=== PATIENT | female | born 2000 | race Caucasian/White ===

== ENCOUNTER → 2020-02-07 08:10 | Outpatient (BNVA) | payer MEDICAID, SELFPAY | PROVIDERS: Family Provider Physician Assistant; PCP Physician Assistant; Visit Provider Specialist | DX: F90.9 Attention-deficit hyperactivity disorder, unspecified type (principal) | CPT/HCPCS: 99213 ==

== ENCOUNTER 2020-03-23 07:42 | Outpatient (CLI) | payer MEDICAID, SELFPAY ==
--- NOTE | 2020-03-23 08:06 | CT_ITS ---
WS: [id number] CT NECK TECHNIQUE: Contrast-enhanced CT of the neck with coronal and sagittal reformatted images. CLINICAL INFORMATION: ARTHRALGIA OF L-TMJ COMPARISON: None. DLP: 2279.[address] scans at [facility] use at least one of these dose optimization techniques: automat ed exposure control; mA and/or kV adjustment per patient size (includes targeted exams where dose is matched to clinical indication); or iterative reconstruction. FINDINGS: No evidence of mandibular fracture or dislocation. Tiny amount of sclerosis in the left condylar head slightly more prominent compared to the right and may be due to to prior trauma or repetitive microt rauma. No evidence of subchondral cystic change or avascular necrosis. No evidence of subchondral col lapse. No significant joint space narrowing. TMJ is symmetric in appearance bilaterally. Parotid glands are normal in appearance. Normal submandibular glands. Normal posterior nasopharynx. N o evidence of supraglottic or glottic mass. Thyroid gland is normal. A few slightly prominent cervica l lymph nodes left greater than right nonspecific but likely reactive. Mastoid air cells well aerated. Paranasal sinuses are well aerated. Thyroid gland is normal. Lung api derrick are well aerated. Straightening of the normal cervical lordosis. Partially visualized intracrania l contents are normal. CT/CT neck w con* [id number] IMPRESSION: 1. Temporomandibular joints are symmetric in appearance bilaterally. No eviden ce of mandibular fracture dislocation. Tiny amount of sclerosis in the left con dylar head slightly asymmetric compared to the right may be due to prior trauma or repetitive microtrauma. No subchondral cystic change or condylar flattening . 2. Salivary glands are normal in appearance. 3. A few prominent cervical lymph nodes the largest left jugulodigastric thaddeus uring 10 mm in short axis dimension, likely reactive. 4. Normal thyroid gland. 5. No evidence of supraglottic or glottic mass. 6. Normal paranasal sinuses.
[2020-03-23] MEDS: iohexol 300 mg/mL 100 mL Btl IV (08:27)
== END 2020-03-23 07:43 | disposition home or self-care (01) ==
LOC: RADWPI 07:46
PROVIDERS: Family Provider Physician Assistant; PCP Physician Assistant; Visit Provider Specialist
DX: M26.622 Arthralgia of left temporomandibular joint (principal); R59.9 Enlarged lymph nodes, unspecified
CPT/HCPCS: 70491; Q9967

== ENCOUNTER 2020-06-23 19:50 | Emergency (ER) | payer MEDICAID, SELFPAY ==
--- NOTE | 2020-06-23 19:57 | ECG_ITS ---
[facility] Test Date: 2020-06-23 Pat Name: Ella Swain Department: Room: Gender: Female Military Nurse: : 2000 Requested By: Simin Hilario Order Number: [id number] Angelic MD: Tess Graned M.D. Measurements Intervals [place] Rate: 89 P: 6 VA: 121 QRS: 59 QRSD: 78 T: 10 QT: 338 QTc: 411 Interpretive Statements SINUS RHYTHM MODERATE VOLTAGE CRITERIA FOR LVH, CONSIDER NORMAL VARIANT [MEETS CRITERIA IN ONE OF: R(aVL), S(V1), R(V5), R(V5/V6)+S(V1)] NONSPECIFIC T-WAVE ABNORMALITY INTERPRETATION BASED ON A DEFAULT AGE OF 40 YEARS No previous ECG available for comparison Electronically Signed On 06-24-2020 6:59:37 CDT by Tess Grande M.D. [email or web address]
--- NOTE | 2020-06-23 19:57 | XRR_ITS ---
PROCEDURE INFORMATION: Exam: XR Chest, 1 View Exam date and time: 06/23/2020 8:24 PM Age: 19 years old Clinical indication: Dyspnea; Additional info: Chest pain TECHNIQUE: Imaging protocol: XR of the chest Views: 1 view. COMPARISON: No relevant prior studies available. FINDINGS: Lungs: Unremarkable. No consolidation. Pleural space: Unremarkable. No pleural effusion. No pneumothorax. Heart/Mediastinum: Unremarkable. No cardiomegaly. Bones/joints: No acute abnormality. XR/XR chest 1V portable [id number] IMPRESSION: No acute findings.
[2020-06-23 19:59] VITALS: BP 142/87; PULSE 109; RESP 18; TEMP 37; O2SAT 97; BMI 27.6
--- NOTE | 2020-06-23 20:21 | ED_ITS ---
HPI - Chest Pain General: Chief Complaint: General Medical Stated Complaint: cp Time Seen by Provider: 06/23/20 19:57 Source: patient Mode of arrival: ambulatory Limitations: no limitations History of Present Illness: HPI narrative: Patient is a 19-year-old female who presents to ED today along with her mother for complaints of chest pains. Patient tells me chest pains have been intermittent over the past year. She tells me that she seems to get chest pain when she gets stressed at work. Patient states she works at the [employer]. She states she will also get chest pains that family functions because some of her family members often yell which stresses her out. Patient tells me pain will last approximately 30 minutes and then subside on its own. She reports approximately one episode of chest pain a week. She denies shortness of breath, difficulty breathing. Chest pain is not exertional or positional. MD complaint: chest pain Onset (ago): year(s) Timing of current episode: episodic Prior episodes: Yes Onset: other (with stress) Pain location: substernal Pain radiation: left arm Relieving factors: nothing Exacerbating factors: stress and other Associated symptoms: Reports no associated symptoms; Deny dyspnea, fever(s), nausea, palpitations, syncope or vomiting Treatment prior to arrival: none Review of Systems Const: Denies: fever(s) or chills Eyes: Denies: change in vision ENMT: Denies: throat pain or odynophagia Card: Reports: chest pain; Denies: palpitations, irregular heart rhythm, edema, swelling of feet/ankles, lightheadedness, syncope, pre-syncope, dyspnea on exertion, orthopnea or leg pain with exertion Resp: Denies: dyspnea, productive cough, non-productive cough, hemoptysis or chest congestion GI: Denies: nausea or vomiting Musc: Denies: neck pain or back pain Neuro: Denies: headache(s) PFSH ED PFSH: Family History Other Cancer Diabetes Heart disease Seizure Social History Smoking and tobacco status: never smoked History of recent travel: No Female Reproductive History: Date of last menstrual period: 06/12/20 Physical Exam Const: COMMON NORMALS: no acute distress, patient oriented x3, no limitations and alert GENERAL APPEARANCE: cooperative OTHER: appears to have a mild intellectual delay HENMT: COMMON NORMALS: normocephalic and atraumatic HEAD & SCALP: normocephalic and atraumatic Chest: COMMONS NORMALS: normal inspection of the chest OTHER: TTP anterior chest Resp: COMMON NORMALS: normal respiratory effort and clear to auscultation bilaterally AUSCULTATION: clear to auscultation bilaterally Cardio: COMMON NORMALS: regular rate and regular rhythm RATE: regular rate RHYTHM: regular rhythm GI: COMMON NORMALS: Normal to inspection, nondistended, normoactive bowel sounds present, Soft to palpation, non-tender, No hepatosplenomegaly present and no masses PALPATION: Yes Soft to palpation and Yes No hepatosplenomegaly present Extremity: COMMON NORMALS: normal to inspection Neuro: COMMON NORMALS: patient oriented x3 SENSORIUM/ORIENTATION: Yes alert Skin: COMMON NORMALS: no rashes or lesions noted GENERAL SKIN EXAM: no rashes or lesions noted Course Vital Signs: Vital signs: Vital Signs Temperature 98.6 F 06/23/20 19:59 Pulse Rate 109 H 06/23/20 19:59 Respiratory Rate 18 06/23/20 19:59 Blood Pressure 140/85 06/23/20 20:58 Pulse Oximetry 99 06/23/20 20:23 MDM - Chest Pain MDM Narrative: Medical decision making narrative: Based on patient's history there is no further work-up indicated from the emergency department. Her CXR and EKG are normal. Patient does have an echocardiogram on file from a year ago which was normal. Recommend she follow-up with her primary care provider. Discussed a possible referral to [facility] for therapy/counseling on meditation relaxation techniques for when patient becomes stressed. Imaging Data^: CXR: My impression: NAD EKG Data^: EKG 1: EKG interpretation date: 06/23/20 EKG interpretation time: 20:33 Interpretation: Sinus rhythm Rate [address] elevation or depression changes noted Discharge Plan Discharge Patient Disposition: Home Clinical Impression: Non-cardiac chest pain Condition: Stable Prescriptions: No Action desipramine 50 mg tablet 50 mg PO DAILY RF: 0 loratadine 10 mg capsule 10 mg PO DAILY RF: 0 montelukast 10 mg tablet 10 mg PO DAILY RF: 0 naproxen 500 mg tablet 500 mg PO BID RF: 0 omeprazole 20 mg capsule,delayed release(DR/EC) 20 mg PO DAILY RF: 0 norgestimate-ethinyl estradiol [Sprintec (28)] 0.25-35 mg-mcg tablet 1 tab PO DAILY RF: 0 Discharge Orders: Discharge Order (Routine); Ordered 06/23/20 Ordered By: Simin Hilario Referrals: Bridget Millan PA [Primary Care Provider] - Patient Instructions: Noncardiac Chest Pain (ED) Discharge Date/Time: 06/23/20 21:00 Coding Level of Care Code ED Assistant Boiler Operator for Sherice Jaramillo
[2020-06-23 20:23] VITALS: BP 145/89; O2SAT 99
[2020-06-23 20:58] VITALS: BP 140/85
== END 2020-06-23 21:00 | disposition home or self-care (01) ==
PROVIDERS: Emergency Provider Physician Assistant; PCP Physician Assistant
DX: R07.89 Other chest pain (principal)
CPT/HCPCS: 12345; 71045; 93005; 99281; 99283

== ENCOUNTER → 2020-10-26 10:28 | Outpatient (BNVA) | payer MEDICAID, SELFPAY | PROVIDERS: PCP Nurse Practitioner Family; Visit Provider Nurse Practitioner Family | DX: R05 Cough (principal) | CPT/HCPCS: 87635 ==

== ENCOUNTER 2021-03-21 12:43 | Emergency (ER) | payer MEDICAID, SELFPAY ==
[2021-03-21 12:49] VITALS: BP 154/95; PULSE 90; RESP 18; TEMP 36.8; O2SAT 95; BMI 27.4
--- NOTE | 2021-03-21 13:23 | W.ED.PSYCH ---
HPI - Psych General: Chief Complaint: Psychiatric Symptoms Stated Complaint: psych eval Time Seen by Provider: 03/21/21 12:44 History of Present Illness: HPI Narrative: The patient is a 20-year-old female with past medical history learning disability, cerebral palsy who comes to the ER from clinic where she reported that she wanted to . She also admits to days ago to cutting her left forearm. She has a superficial abrasion there not requiring any acute intervention. MD complaint: suicidal ideation Relieving factors: none Associated psychiatric symptoms: depression and suicidal ideation Associated symptoms: Reports no associated symptoms and depression If self harm: admits thoughts of self harm Review of Systems General: Reports: 10 or more systems reviewed and unremarkable except in HPI and below Const: Denies: fatigue Eyes: Denies: change in vision, blurry vision or eye redness ENMT: Denies: throat pain, swelling of lips/tongue, ear or mastoid pain or nasal congestion Card: Denies: chest pain, palpitations, irregular heart rhythm, edema, dyspnea on exertion or orthopnea Resp: Denies: dyspnea, productive cough or non-productive cough GI: Denies: abdominal pain, diarrhea or GI cramping : Denies: flank pain, difficulty voiding, urinary frequency or urinary urgency Musc: Denies: neck pain, back pain, extremity pain, joint pain, joint redness, limited range of motion or muscle weakness Skin/Breast: Denies: rash, pruritus, erythema, skin pain or skin tenderness Neuro: Denies: headache(s), numbness in extremities, weakness in extremities, sensory changes, difficulty walking, dizziness, confusion or Slurred speech present Psych: Reports: depression; Denies: anxiety Endo: Denies: polyuria All/Imm: Denies: urticaria, throat swelling or tongue swelling PFSH ED PFSH: Family History Other Cancer Diabetes Heart disease Seizure Social History Smoking and tobacco status: never smoked History of recent travel: No Female Reproductive History: Date of last menstrual period: 03/12/21 Physical Exam Const: COMMON NORMALS: no acute distress, average body habitus, patient oriented x3, no limitations, healthy appearing, alert and well nourished GENERAL APPEARANCE: cooperative, comfortable, well kempt and well developed ORIENTATION/CONSCIOUSNESS: Yes awake, Yes oriented to person, Yes oriented to place and Yes oriented to time HENMT: COMMON NORMALS: normocephalic, external ears normal and Normal external nose present HEAD & SCALP: normal to inspection and normocephalic NOSE: Normal external nose present EXTERNAL EAR: Yes external ears normal MOUTH: Normal oral and palatal mucosa present THROAT: posterior oropharynx normal Eye: COMMON NORMALS: Equal, round and reactive pupils present and EOMs intact bilaterally GENERAL EYE: appearance normal, both eyes and all related structures PUPIL: Yes Equal, round and reactive pupils present Neck/C-Spine: COMMON NORMALS: full ROM, no lymphadenopathy, no meningeal signs and no JVD GENERAL: Yes normal visual inspection Lymph: LYMPHATIC: no lymphadenopathy noted Chest: COMMONS NORMALS: normal inspection of the chest and normal palpation of entire chest wall Resp: COMMON NORMALS: normal respiratory effort, No retractions, No use of accessory muscles, clear to auscultation bilaterally and percussion normal EFFORT & INSPECTION: Yes able to speak in complete sentences AUSCULTATION: clear to auscultation bilaterally PERCUSSION: percussion normal Cardio: COMMON NORMALS: no JVD, regular rate, regular rhythm, S1 normal heart sound present, S2 normal heart sound present and Peripheral pulses 2+ throughout RATE: regular rate RHYTHM: regular rhythm HEART SOUNDS: S1 normal heart sound present and S2 normal heart sound present PERIPHERAL PULSES: Peripheral pulses 2+ throughout GI: COMMON NORMALS: Normal to inspection, nondistended, normoactive bowel sounds present, Soft to palpation, non-tender and no masses INSPECTION: Yes normal to inspection PALPATION: Yes Soft to palpation : COMMON NORMALS: Yes no CVA tenderness BLADDER/KIDNEY EXAM: Yes no CVA tenderness Back/Pelvis: COMMON NORMALS: no CVA tenderness, thoracic and lumbar spine normal to inspection, no thoracic nor lumbar tenderness and thoraco-lumbar ROM normal Extremity: COMMON NORMALS: normal to inspection, full ROM, capillary refill normal, no joint enlargement and no pedal edema GENERAL: Yes normal exam except as noted Neuro: COMMON NORMALS: patient oriented x3, CN's II-XII intact bilaterally, moves all extremities, no focal motor deficits, no sensory deficits noted and gait normal SENSORIUM/ORIENTATION: Yes alert, Yes oriented to person, Yes oriented to place and Yes oriented to time MENINGEAL SIGNS: Yes no meningeal signs Psych: COMMON NORMALS: mental status grossly normal, Normal thought process present, cooperative, normal affect and speech normal APPEARANCE: Yes well kempt ATTITUDE: Yes calm SPEECH: Yes normal speech THOUGHT PROCESS: Normal thought process present Skin: COMMON NORMALS: no rashes or lesions noted GENERAL SKIN EXAM: no rashes or lesions noted Course Vital Signs: Vital signs: Vital Signs Temperature 98.2 F 03/21/21 12:49 Pulse Rate 143 H 03/21/21 14:16 Respiratory Rate 18 03/21/21 12:49 Blood Pressure 154/95 03/21/21 12:49 Pulse Oximetry 98 03/21/21 14:16 MDM - Psych MDM Narrative: Medical decision making narrative: Seen by Dr. Goddard in the ER who recommended increasing the Lexapro and discharging home with follow-up with psych. She also has a UTI. We will discharge her with Cipro. ER with worsening symptoms. Updated her tetanus and discharge. Lab Data: Labs: Lab Results 03/21/21 03/21/21 03/21/21 Range/Units 13:26 13:26 13:26 WBC 13.1 H (4.0-10.0) 10^3/ uL RBC 4.94 (4.1-5.3) 10^6/u L Hgb 13.9 (11.5-15.3) g/dL Hct 43.1 (37.0-47.0) % MCV 87.2 (81-99) fL MCH 28.1 (28.0-34.0) pg MCHC 32.3 (30.0-36.0) g/dL RDW 12.9 (12.1-15.1) % Plt Count 413 H (130-400) 10^3/c mm MPV 9.4 (7.4-10.4) fL Neut % (Auto) 56.4 % Lymph % (Auto) 28.4 % [place] % (Auto) 8.5 % Eos % (Auto) 5.1 % Baso % (Auto) 0.8 % Neut # (Auto) 7.40 (1.8-7.7) 10^3/u L Lymph # (Auto) 3.7 (0.8-4.8) 10^3/u L [place] # (Auto) 1.1 H (0.2-0.9) 10^3/u L Eos # (Auto) 0.7 (0.0-0.8) 10^3/u L Baso # (Auto) 0.1 (0.0-0.1) 10^3/u L Nucleated RBC % (a uto) 0 % Nucleated RBCs # 0.0 /100WBC Sodium 137 (136-145) mmol/L Potassium 3.9 (3.5-5.1) mmol/L Chloride 100 (98-107) mmol/L Carbon Dioxide 25 (22-29) mmol/L Anion Gap 15.9 (5-19) BUN 6 (6-20) mg/dL Creatinine 0.5 (0.5-0.9) mg/dL GFR Calculation 154.3 H (90-130) mL/min Glucose 92 (65-115) mg/dL Calculated Osmolal ity 281 L (285-295) mOsm/k g Calcium 9.1 (8.5-10.5) mg/dL Total Bilirubin 0.3 (0.15-1.2) mg/dL AST 72 H (0-32) U/L ALT 93 H (0-33) U/L Alkaline Phosphata se 109 H (35-105) IU/L Total Protein 7.3 (6.6-8.7) g/dL Albumin 4.7 (3.5-5.2) g/dL Globulin 2.6 (1.3-4.6) g/dL TSH 2.04 (0.27-4.20) uIU/ mL Urine Color Yellow (Yellow) Urine Appearance Hazy A (CLEAR) Urine pH 5 (5-7) Ur Specific Gravit y 1.010 (1.005-1.030) Urine Protein Neg (Negative) Urine Glucose (UA) Norm (Normal) Urine Ketones Negative (Negative) Urine Blood Neg (Negative) Urine Nitrate Negative (Negative) Urine Bilirubin Neg (Negative) Urine Urobilinogen Norm (Negative) mg/dL Ur Leukocyte Mickie ase 2+ H (Negative) Urine RBC 0-4 H (0-2) /hpf Urine WBC 40-55 H (0-5) /hpf Ur Squamous Epith Cells 10-15 H (0-5) /hpf Amorphous Sediment Not Reportable Urine Bacteria 2+ H (NONE) /hpf Urine Trichomonas 2+ H /hpf Salicylates 0.7 L (3-10) mg/dL Urine Opiates Scre en (Negative) ng/mL Acetaminophen < 5.0 L (10-30) ug/mL Ur Barbiturates Sc reen (Negative) ng/mL Ur Phencyclidine S crn (Negative) ng/mL Ur Amphetamines Sc reen (Negative) ng/mL U Benzodiazepines Scrn (Negative) ng/mL Urine Cocaine Scre en (Negative) ng/mL U Marijuana (THC) Screen (Negative) ng/mL Ethyl Alcohol < 10 (0-10) mg/dL 03/21/21 Range/Units 13:26 WBC (4.0-10.0) 10^3/ uL RBC (4.1-5.3) 10^6/u L Hgb (11.5-15.3) g/dL Hct (37.0-47.0) % MCV (81-99) fL MCH (28.0-34.0) pg MCHC (30.0-36.0) g/dL RDW (12.1-15.1) % Plt Count (130-400) 10^3/c mm MPV (7.4-10.4) fL Neut % (Auto) % Lymph % (Auto) % [place] % (Auto) % Eos % (Auto) % Baso % (Auto) % Neut # (Auto) (1.8-7.7) 10^3/u L Lymph # (Auto) (0.8-4.8) 10^3/u L [place] # (Auto) (0.2-0.9) 10^3/u L Eos # (Auto) (0.0-0.8) 10^3/u L Baso # (Auto) (0.0-0.1) 10^3/u L Nucleated RBC % (a uto) % Nucleated RBCs # /100WBC Sodium (136-145) mmol/L Potassium (3.5-5.1) mmol/L Chloride (98-107) mmol/L Carbon Dioxide (22-29) mmol/L Anion Gap (5-19) BUN (6-20) mg/dL Creatinine (0.5-0.9) mg/dL GFR Calculation (90-130) mL/min Glucose (65-115) mg/dL Calculated Osmolal ity (285-295) mOsm/k g Calcium (8.5-10.5) mg/dL Total Bilirubin (0.15-1.2) mg/dL AST (0-32) U/L ALT (0-33) U/L Alkaline Phosphata se (35-105) IU/L Total Protein (6.6-8.7) g/dL Albumin (3.5-5.2) g/dL Globulin (1.3-4.6) g/dL TSH (0.27-4.20) uIU/ mL Urine Color (Yellow) Urine Appearance (CLEAR) Urine pH (5-7) Ur Specific Gravit y (1.005-1.030) Urine Protein (Negative) Urine Glucose (UA) (Normal) Urine Ketones (Negative) Urine Blood (Negative) Urine Nitrate (Negative) Urine Bilirubin (Negative) Urine Urobilinogen (Negative) mg/dL Ur Leukocyte Mickie ase (Negative) Urine RBC (0-2) /hpf Urine WBC (0-5) /hpf Ur Squamous Epith Cells (0-5) /hpf Amorphous Sediment Urine Bacteria (NONE) /hpf Urine Trichomonas /hpf Salicylates (3-10) mg/dL Urine Opiates Scre en Negative (Negative) ng/mL Acetaminophen (10-30) ug/mL Ur Barbiturates Sc reen Negative (Negative) ng/mL Ur Phencyclidine S crn Negative (Negative) ng/mL Ur Amphetamines Sc reen Negative (Negative) ng/mL U Benzodiazepines Scrn Negative (Negative) ng/mL Urine Cocaine Scre en Negative (Negative) ng/mL U Marijuana (THC) Screen Negative (Negative) ng/mL Ethyl Alcohol (0-10) mg/dL Discharge Plan Discharge Patient Disposition: Home Clinical Impression: UTI (urinary tract infection), Depression, Intellectual disability Condition: Stable Prescriptions: New Lexapro 20 mg tablet 20 mg PO DAILY Qty: 30 RF: 0 ciprofloxacin HCl 500 mg tablet 500 mg PO Q12H Qty: 10 RF: 0 Discontinued escitalopram oxalate 10 mg tablet 15 mg PO DAILY@0600 RF: 0 No Action desipramine 50 mg tablet 50 mg PO DAILY@2100 RF: 0 loratadine 10 mg capsule 10 mg PO DAILY@0600 RF: 0 montelukast 10 mg tablet 10 mg PO DAILY@0600 RF: 0 omeprazole 20 mg capsule,delayed release(DR/EC) 20 mg PO DAILY@0600 RF: 0 norgestimate-ethinyl estradiol [Sprintec (28)] 0.25-35 mg-mcg tablet 1 tab PO DAILY@0600 RF: 0 albuterol sulfate 90 mcg/actuation HFA aerosol inhaler 1 inh inhalation QID PRN (Reason: shortness of breath or wheezing) Qty: 6.7 RF: 0 Miralax 17 gram Powder In Packet 17 g PO DAILY@0600 RF: 0 ibuprofen 200 mg Tablet 200 - 400 mg PO Q6H PRN (Reason: Pain) RF: 0 dicyclomine 10 mg capsule See Rx Instructions .ROUTE .COMPLEX RF: 0 Peppermint Pills 1 tab PO DAILY@0600 RF: 0 vitamin E 1 tab PO DAILY@0600 RF: 0 Discharge Orders: Discharge ED (Routine); Ordered 03/21/21 Ordered By: Ned Treviño Referrals: Bridget Millan PA [Primary Care Provider] - Discharge Diet: Advance as tolerated Discharge Activity: Resume usual activity Patient Instructions: Urinary Tract Infection in Women (ED), Depression (ED), Opioid Safety Activity Restrictions/Additional Instructions: Your child has an intellectual disability that is likely causing some of the symptoms. Please increase the dose of Lexapro to 20 mg daily and follow-up with your primary care physician and mental health doctor before the end of next week. Return to the ER with worsening symptoms. Coding Level of Care Code ED Homebirth Midwife for Sherice Fwd Exam Comprehensive
[2021-03-21 14:05] LABS: Basophils # 0.1 10^3/uL (0.0-0.1); Basophils % 0.8 %; Eosinophils # 0.7 10^3/uL (0.0-0.8); Eosinophils % 5.1 %; Hematocrit 43.1 % (37.0-47.0); Hemoglobin 13.9 g/dL (11.5-15.3); Lymphocytes # 3.7 10^3/uL (0.8-4.8); Lymphocytes % 28.4 %; Mean Corpuscular HGB Conc 32.3 g/dL (30.0-36.0); Mean Corpuscular Hemoglobin 28.1 pg (28.0-34.0); Mean Corpuscular Volume 87.2 fL (81-99); Mean Platelet Volume 9.4 fL (7.4-10.4); Monocytes # 1.1 10^3/uL (0.2-0.9); Monocytes % 8.5 %; Neutrophils % 56.4 %; Nucleated Red Blood Cells % 0 %; Platelet Count 413 10^3/cmm (130-400); Red Blood Count 4.94 10^6/uL (4.1-5.3); Red Cell Distribution Width 12.9 % (12.1-15.1); White Blood Count 13.1 10^3/uL (4.0-10.0)
[2021-03-21 14:16] VITALS: PULSE 143; O2SAT 98
[2021-03-21 14:35] LABS: Alanine Aminotransferase 93 U/L (0-33); Albumin Level 4.7 g/dL (3.5-5.2); Alkaline Phosphatase 109 IU/L (35-105); Aspartate Amino Transferase 72 U/L (0-32); Blood Urea Nitrogen 6 mg/dL (6-20); Calcium 9.1 mg/dL (8.5-10.5); Carbon Dioxide 25 mmol/L (22-29); Chloride 100 mmol/L (98-107); Globulin 2.6 g/dL (1.3-4.6); Glomerular Filtration Rate 154.3 mL/min (90-130); Glucose 92 mg/dL (65-115); Osmolality Calculated 281 mOsm/kg (285-295); Salicylate 0.7 mg/dL (3-10); Sodium 137 mmol/L (136-145); Thyroid Stimulating Hormone 2.04 uIU/mL (0.27-4.20); Total Bilirubin 0.3 mg/dL (0.15-1.2); Total Protein 7.3 g/dL (6.6-8.7)
[2021-03-21 14:37] LABS: Acetaminophen < 5.0 ug/mL (10-30); Alcohol Level < 10 mg/dL (0-10)
[2021-03-21 14:38] LABS: Anion Gap 15.9 (5-19); Potassium 3.9 mmol/L (3.5-5.1)
[2021-03-21 14:42] LABS: Add Urine Microscopic? YES; Bilirubin Urine Neg (Negative); Blood Urine Neg (Negative); Glucose Urine UA Norm (Normal); Ketones Urine Negative (Negative); Leukocyte Esterase Urine 2+ (Negative); Nitrate Urine Negative (Negative); Protein Urine Neg (Negative); Urine Appearance Hazy (CLEAR); Urine Color Yellow (Yellow); Urobilinogen Urine Norm (Negative); pH Urine 5 (5-7)
[2021-03-21 14:53] LABS: Bacteria Urine 2+ /hpf; Trichomonas Urine 2+ /hpf
[2021-03-21 14:54] LABS: RBC Urine 0-4 /hpf (0-2); WBC Urine 40-55 /hpf (0-5)
[2021-03-21 14:55] LABS: Add Urine Culture? No
[2021-03-21 15:10] LABS: Amphetamines Screen Urine Negative (Negative); Barbiturates Screen Urine Negative (Negative); Benzodiazepines Screen Urine Negative (Negative); Cocaine Screen Urine Negative (Negative); Opiate Screen Urine Negative (Negative); PCP Screen Urine Negative (Negative); THC Screen Urine Negative (Negative)
[2021-03-21] MEDS: tetanus-dipt-pertussis 0.5 mL SDV IM (18:01)
[2021-03-21] MEDS: ciprofloxacin 500 mg Tablet PO (18:01)
--- NOTE | 2021-03-22 08:23 | DCPLANNER ---
Addendum entered by Katharine Deluna 03/22/21 08:35: Patient called home health care case manager back, and stated that home health care case manager needed to speak with her mom. manager rfid called patients mom who is her caregiver, unable to speak with her at this time, a voicemail was left for the mother to return home health care case manager phone call. Original Note: manager rfid had message to speak with patient about [facility] and primary care. manager rfid called phone number [phone], recording stated that this number is no longer in service. Case manage called phone number [phone], no answer at this number, and a recording stated that this number did not have a voicemail box set up.
== END 2021-03-21 18:07 | disposition home or self-care (01) ==
PROVIDERS: Emergency Provider Family Medicine; PCP Physician Assistant
DX: F32.9 Major depressive disorder, single episode, unspecified (principal); F79 Unspecified intellectual disabilities; N39.0 Urinary tract infection, site not specified; Z23 Encounter for immunization
CPT/HCPCS: 36415; 80053; 80306; 80307; 81001; 84443; 85025; 90471; 90715; 99284

== ENCOUNTER 2021-08-12 20:02 | Emergency (ER) | payer MEDICAID, SELFPAY ==
[2021-08-12 20:05] VITALS: BP 138/100; PULSE 102; RESP 16; TEMP 35.8; O2SAT 96; BMI 29.2
--- NOTE | 2021-08-12 20:18 | XRR_ITS ---
PROCEDURE INFORMATION: Exam: XR Chest Exam date and time: 08/12/2021 8:18 PM Age: 20 years old Clinical indication: Cough and other: Asthma attack? ; Patient HX: Cough; Asthma attack? TECHNIQUE: Imaging protocol: XR of the chest. Views: 1 view. COMPARISON: CR XR chest 1V portable [id number] 06/23/2020 8:15 PM FINDINGS: Lungs: Subtle hazy opacity in the peripheral left lung base. The lungs are otherwise clear. No consolidation. Pleural spaces: Unremarkable. No pleural effusion. No pneumothorax. Heart/Mediastinum: Unremarkable. No cardiomegaly. Bones/joints: Unremarkable. XR/XR chest 1V portable [id number] IMPRESSION: 1. Subtle hazy opacity in the left lung base could represent soft tissue attenuation, but pneumonia cannot be excluded.
--- NOTE | 2021-08-12 20:19 | ED_ITS ---
HPI - URI/Sore Throat General: Chief Complaint: Asthma Stated Complaint: Asthma Attack Time Seen by Provider: 08/12/21 20:10 Source: patient Mode of arrival: ambulatory Limitations: no limitations History of Present Illness: HPI Narrative: Patient is a 20-year-old female who presents to ED today along with her boyfriend for evaluation of multiple complaints. She states she has had a cough x 5 months. Reports it is non- productive. She is not a smoker. She has some rib pain bilaterally from coughing. She's had nasal congestion/runny nose for a few weeks now. Complains of a mild sore throat. Tested negative for COVID. Placed on abx for sinusitis- not helping. Does take an allergy med daily. Reports hx of asthma. Doing nebulizers TID. States sometimes she feels shaky. Today noticed some hot flashes. Having some complaints that her bilateral thighs hurt. No fevers, diffuse body aches, fatigue. Associated symptoms: Reports chest pain (reports rib pain) and nasal congestion; Deny abdominal pain, chills, diarrhea, epistaxis, ear or mastoid pain, fever(s), headache(s), nausea, sinus pain or vomiting Review of Systems Const: Denies: fever(s), chills, body aches, change in appetite, change in weight, fatigue, malaise, night sweats, change in sleep pattern or daytime sleepiness Eyes: Denies: change in vision, blurry vision, photophobia, eye discomfort, eye discharge, floaters or seeing flashes ENMT: Reports: throat pain, nasal discharge, nasal congestion and post nasal drip; Denies: uvular edema, enlarged tonsils, mouth pain, swelling of lips/tongue, dental pain, ear or mastoid pain, ear discharge, epistaxis or sinus pain Card: Reports: chest pain (reports rib pain); Denies: palpitations, irregular heart rhythm, edema, swelling of feet/ankles, lightheadedness, syncope, pre-syncope, dyspnea on exertion, orthopnea or leg pain with exertion Resp: Reports: non-productive cough; Denies: dyspnea, productive cough, wheezing, stridor, hemoptysis or chest congestion GI: Denies: abdominal pain, nausea, vomiting or diarrhea : Denies: flank pain or dysuria Musc: Reports: extremity pain (reports pain to bilateral thighs); Denies: neck pain, back pain, extremity swelling, joint pain, joint swelling, joint redness, joint warmth, joint stiffness, limited range of motion, muscle cramps, muscle weakness or decrease in muscle mass Skin/Breast: Denies: rash Neuro: Denies: headache(s), numbness in extremities, weakness in extremities, sensory changes, difficulty walking, dizziness or confusion PFSH ED PFSH: Family History Other Cancer Diabetes Heart disease Seizure Social History Smoking and tobacco status: never smoked History of recent travel: No Female Reproductive History: Date of last menstrual period: 03/12/21 Physical Exam Const: COMMON NORMALS: no acute distress, patient oriented x3, no limitations, alert and well nourished GENERAL APPEARANCE: cooperative NUTRITIONAL APPEARANCE: overweight ORIENTATION/CONSCIOUSNESS: Yes awake, Yes oriented to person, Yes oriented to place and Yes oriented to time OTHER: cognitive delay HENMT: COMMON NORMALS: normocephalic and atraumatic HEAD & SCALP: normocephalic and atraumatic THROAT: no uvular edema Chest: COMMONS NORMALS: normal inspection of the chest OTHER: very mild dis comfort to bilateral lateral chest canseco Resp: COMMON NORMALS: normal respiratory effort and clear to auscultation bilaterally AUSCULTATION: clear to auscultation bilaterally Cardio: COMMON NORMALS: regular rate and regular rhythm RATE: regular rate RHYTHM: regular rhythm Extremity: COMMON NORMALS: normal to inspection, full ROM, capillary refill normal, no joint enlargement, no clubbing, cyanosis or edema, no calf tenderness and no pedal edema GENERAL: Yes normal exam except as noted RIGHT LOWER EXTREMITY: Yes upper leg (normal thigh exam) LEFT LOWER EXTREMITY: Yes upper leg (normal thigh exam) Neuro: CHING COMA SCALE: document GCS findings Ching coma scale eye opening: Spontaneous [place] coma scale verbal response: Orientated Ching coma scale motor response: Obey commands [place] coma scale total score: 15 COMMON NORMALS: patient oriented x3, CN's II-XII intact bilaterally, moves all extremities, no focal motor deficits, no sensory deficits noted and gait normal SENSORIUM/ORIENTATION: Yes alert, Yes oriented to person, Yes oriented to place and Yes oriented to time Skin: COMMON NORMALS: no rashes or lesions noted GENERAL SKIN EXAM: no rashes or lesions noted TRAUMA: no lacerations or abrasions Course Vital Signs: Vital signs: Vital Signs Temperature 96.4 F L 08/12/21 20:05 Pulse Rate 98 08/12/21 20:28 Respiratory Rate 18 08/12/21 20:28 Blood Pressure 148/101 08/12/21 20:28 Pulse Oximetry 96 08/12/21 20:28 MDM - URI/Sore Throat MDM Narrative: Medical decision making narrative: Patient here for multiple medical complaints. Etiology of her chronic cough could include asthma, GERD, postnasal drip, seasonal allergies, psychogenic. Her CXR is normal. She did have a complaint of shakiness. Patient tells me she is doing her albuterol inhalers 3 times daily because her PCP told her to. I explained to her that she does not need to do scheduled treatments as this is a prn medication and only needs to if she begins experiencing shortness of breath, chest tightness, or wheezing. Recommend she continue her seasonal allergy medications. Recommend follow-up with primary care in the next 1 to 2 weeks if symptoms persist. Return to ED precautions given. Imaging Data^: CXR: My impression: NAD Discharge Plan Discharge Patient Disposition: Home Clinical Impression: Chronic cough Condition: Stable Prescriptions: No Action desipramine 50 mg tablet 50 mg PO DAILY@2100 RF: 0 loratadine 10 mg capsule 10 mg PO DAILY@0600 RF: 0 montelukast 10 mg tablet 10 mg PO DAILY@0600 RF: 0 omeprazole 20 mg capsule,delayed release(DR/EC) 20 mg PO DAILY@0600 RF: 0 medroxyprogesterone [Depo-Provera] 150 mg/mL syringe IM RF: 0 cephalexin 500 mg capsule 500 mg PO Q8H 10 Days Qty: 30 RF: 0 albuterol sulfate 90 mcg/actuation HFA aerosol inhaler 1 inh inhalation QID PRN (Reason: shortness of breath or wheezing) Qty: 6.7 RF: 0 Miralax 17 gram Powder In Packet 17 g PO DAILY@0600 RF: 0 ibuprofen 200 mg Tablet 200 - 400 mg PO Q6H PRN (Reason: Pain) RF: 0 dicyclomine 10 mg capsule See Rx Instructions .ROUTE .COMPLEX RF: 0 Peppermint Pills 1 tab PO DAILY@0600 RF: 0 vitamin E 1 tab PO DAILY@0600 RF: 0 Lexapro 20 mg tablet 20 mg PO DAILY Qty: 30 RF: 0 Discharge Orders: Discharge ED (Routine); Ordered 08/12/21 Ordered By: Simin Hilario Activity Restrictions/Additional Instructions: As we discussed please follow-up with primary care provider as needed for further evaluation. Make sure you are taking your allergy medications every day. As we discussed you do not need to do albuterol treatments 3 times daily if you are not feeling short of breath or wheezing. This could be why you feel shaky as this could be a side effect of the albuterol. Coding Level of Care Code ED Lever Miller for Sherice Jaramillo Exam Comprehensive
[2021-08-12 20:20] VITALS: O2SAT 97
[2021-08-12 20:28] VITALS: BP 148/101; PULSE 98; RESP 18; O2SAT 96
[2021-08-12 20:30] VITALS: BP 148/101; O2SAT 97
[2021-08-12 20:47] VITALS: BP 138/98; PULSE 78; RESP 18; O2SAT 98
== END 2021-08-12 20:54 | disposition home or self-care (01) ==
PROVIDERS: Emergency Provider Physician Assistant
DX: R05 Cough (principal)
CPT/HCPCS: 71045; 99283

== ENCOUNTER 2021-08-21 22:01 | Emergency (ER) | payer MEDICAID, SELFPAY ==
[2021-08-21 22:52] VITALS: BP 144/74; PULSE 83; RESP 20; TEMP 36.9; O2SAT 99; BMI 30.5
[2021-08-21 23:37] LABS: Basophils # 0.1 10^3/uL (0.0-0.1); Basophils % 0.6 %; Eosinophils # 0.3 10^3/uL (0.0-0.8); Eosinophils % 2.6 %; Hematocrit 40.9 % (37.0-47.0); Hemoglobin 13.3 g/dL (11.5-15.3); Lymphocytes # 4.4 10^3/uL (0.8-4.8); Lymphocytes % 45.2 %; Mean Corpuscular HGB Conc 32.5 g/dL (30.0-36.0); Mean Corpuscular Hemoglobin 29.4 pg (28.0-34.0); Mean Corpuscular Volume 90.5 fl (81-99); Mean Platelet Volume 9.1 fL (7.4-10.4); Monocytes # 0.9 10^3/uL (0.2-0.9); Monocytes % 9.1 %; Neutrophils # 4.05 10^3/uL (1.8-7.7); Neutrophils % 42.1 %; Nucleated Red Blood Cells % 0 %; Platelet Count 419 10^3/cmm (130-400); Red Blood Count 4.52 10^6/uL (4.1-5.3); Red Cell Distribution Width 13.3 % (12.1-15.1); White Blood Count 9.6 10^3/uL (4.0-10.0)
[2021-08-21 23:54] LABS: Alanine Aminotransferase 41 U/L (0-33); Albumin Level 4.3 g/dL (3.5-5.2); Alkaline Phosphatase 93 IU/L (35-105); Aspartate Amino Transferase 23 U/L (0-32); Blood Urea Nitrogen 12 mg/dL (6-20); Calcium 9.1 mg/dL (8.5-10.5); Carbon Dioxide 22 mmol/L (22-29); Chloride 105 mmol/L (98-107); Globulin 2.9 g/dL (1.3-4.6); Glomerular Filtration Rate 154.3 mL/min (90-130); Glucose 93 mg/dL (65-115); Lipase 31 U/L (13-60); Osmolality Calculated 285 mOsm/kg (285-295); Sodium 138 mmol/L (136-145); Total Bilirubin 0.2 mg/dL (0.15-1.2); Total Protein 7.2 g/dL (6.6-8.7)
--- NOTE | 2021-08-22 00:21 | ED_ITS ---
HPI - General Adult General: Chief complaint: Seizure Stated complaint: anxiety, headache Time Seen by Provider: 08/21/21 23:11 History of Present Illness: HPI narrative: HPI: [20]yo patient w/ hx of remote seizure presenting to the ED after concern for seizure yesterday night. This episode happened while patient was in the bed. She reported her eyes rolled backwards, and she started jerking. She could not remember what happened but denies any headache, chest pain, SOB, or palpitations around that time. Onset: 1 day ago Duration: x1 episode Location: home Severity: moderate Review of Systems Narrative: Constitutional: No fever, no chills. HEENT: No vision changes CV: No chest pain, no palpitations PULM: No productive cough, no dyspnea. GI: No abdominal pain, no N/V/D. : No Dysuria MSKEL: No muscle pain SKIN: No new rashes, no lesions. NEURO: No headache, no focal weakness. + 1 episode of shaking episode HEME: No visible bruises PSYCH: Normal mood PFSH ED PFSH: Family History Other Cancer Diabetes Heart disease Seizure Social History Smoking and tobacco status: never smoked History of recent travel: No Female Reproductive History: Date of last menstrual period: 03/12/21 Physical Exam Narrative: EXAM NARRATIVE: Head: Atraumatic Eyes: PERRL, conjunctiva without injection, eyes tracking ENT: Mucous membrane moist NECK: Supple without lymphadenopathy LUNGS: LCTAB CV: RRR ABDOMEN: Soft, nontender in all quadrants, no guarding or rebound tenderness, no CVA or flank tenderness bilaterally EXTREMITY: Normal ROM SKIN: No rash or erythema NEURO: CN II-XII tested and intact. Sensation intact to sharp/dull differentiation in all extremities. Motor: Normal tone and bulk. No abnormal movements appreciated. No pronator drift. Strength tested and 5/5 in bilateral wrist flexion/extension, elbow flexion/extension, shoulder abduction, straight leg raise, knee flexion/extension, ankle dorsiflexion/plantarflexion. Patient ambulates with a steady gait. Coordination: Finger to nose and heel to ontiveros testing intact bilaterally. Reflexes intact in the ankles, knees, and elbows bilaterally PSYCH: Cooperative mood and affect Course Vital Signs: Vital signs: Vital Signs Temperature 98.4 F 08/21/21 22:52 Pulse Rate 67 08/22/21 01:51 Respiratory Rate 17 08/22/21 01:51 Blood Pressure 138/74 08/22/21 01:51 Pulse Oximetry 100 08/22/21 01:51 MDM - General Adult MDM Narrative: Medical decision making narrative: [20]yo patient presenting with posisble new onset of seizure x 1 day ago. Currently non-focal neuro exam. HDS. Exam revealed no focal trauma/deformity/bruises.The episode of seizure was witnessed and without any trauma/injury to the head. No immunosuppression hx and without preceding fever. No history of alcohol abuse or suspicion for toxin ingestion. Hx of prior seizure likely breakthrough seizure in the setting of medication change/non-compliance. H No lips/tongue lacerations. No visible bowel/bladder incontinence Airway protected. No drooling. Sats > 95%. Unlikely to be stroke, neurogenic syncope, acute delirium, intracranial tumor/mass, intracranial bleed, SAH/subdural hematoma/epidural hematoma, meningitis, or intracranial abscess, or from alcohol withdrawal. Workup: CBC, BMP, Magnesium, EKG, CT brain (for first time seizure) ED Interventions: 1g of keppra, PO challenge, serial reassessment EKG: No e/o STEMI. No evidence of Brugada?s sign, delta wave, epsilon wave, significantly prolonged QTc, or malignant arrhythmia. Lab findings: Electrolytes including K and Mg wnl. [1:00am] On reassessment, patient back to baseline. In the ED, the patient received 1g of keppra in the ED. No other witnessed episodes of seizure while the patient was observed in the ED. Repeat neuro exam is non-focal. Patient tolerated PO in the ED and was able to ambulate without difficulties. 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 I have given patient follow up with our case work aide to be seen by our outpatient Dr. Gibson. Patient aware of a call from our case work aide to schedule for appointment(s) and verbalizes understanding of the importance of following up. Disposition: Discharge. Patient is given instruction for follow-up with PCP and Neurology in the next 24-48 hours. Given seizure precautions including no driving, swimming, or bathing until the patient is fully evaluated by specialists. Lab Data: Labs: Lab Results 08/21/21 08/21/21 08/21/21 23:32 23:32 23:32 WBC 9.6 10^3/uL 10^3/ uL (4.0-10.0) RBC 4.52 10^6/uL 10^6 /uL (4.1-5.3) Hgb 13.3 g/dL g/dL (11.5-15.3) Hct 40.9 % % (37.0-47.0) MCV 90.5 fl fl (81-99) MCH 29.4 pg pg (28.0-34.0) MCHC 32.5 g/dL g/dL (30.0-36.0) RDW 13.3 % % (12.1-15.1) Plt Count 419 10^3/cmm H 10 ^3/cmm (130-400) MPV 9.1 fL fL (7.4-10.4) Neut % (Auto) 42.1 % % Lymph % (Auto) 45.2 % % Burnett % (Auto) 9.1 % % Eos % (Auto) 2.6 % % Baso % (Auto) 0.6 % % Neut # (Auto) 4.05 10^3/uL 10^3 /uL (1.8-7.7) Lymph # (Auto) 4.4 10^3/uL 10^3/ uL (0.8-4.8) Burnett # (Auto) 0.9 10^3/uL 10^3/ uL (0.2-0.9) Eos # (Auto) 0.3 10^3/uL 10^3/ uL (0.0-0.8) Baso # (Auto) 0.1 10^3/uL 10^3/ uL (0.0-0.1) Nucleated RBC % (a uto) 0 % % Nucleated RBCs # 0.0 /100WBC /100W BC Sodium 138 mmol/L mmol/L (136-145) Potassium 4.0 mmol/L mmol/L (3.5-5.1) Chloride 105 mmol/L mmol/L (98-107) Carbon Dioxide 22 mmol/L mmol/L (22-29) Anion Gap 15.0 (5-19) BUN 12 mg/dL mg/dL (6-20) Creatinine 0.5 mg/dL mg/dL (0.5-0.9) GFR Calculation 154.3 mL/min H mL /min (90-130) Glucose 93 mg/dL mg/dL (65-115) Calculated Osmolal ity 285 mOsm/kg mOsm/ kg (285-295) Calcium 9.1 mg/dL mg/dL (8.5-10.5) Total Bilirubin 0.2 mg/dL mg/dL (0.15-1.2) AST 23 U/L U/L (0-32) ALT 41 U/L H U/L (0-33) Alkaline Phosphata se 93 IU/L IU/L (35-105) Total Protein 7.2 g/dL g/dL (6.6-8.7) Albumin 4.3 g/dL g/dL (3.5-5.2) Globulin 2.9 g/dL g/dL (1.3-4.6) Lipase 31 U/L U/L (13-60) Ser , Nate i-Qnt 0.50 mIU/mL mIU/m L Discharge Plan Discharge Patient Disposition: Home Clinical Impression: Seizure Condition: Stable Prescriptions: New Keppra 500 mg tablet 500 mg PO Q12H 14 Days Qty: 28 RF: 0 No Action desipramine 50 mg tablet 50 mg PO DAILY@2100 RF: 0 loratadine 10 mg capsule 10 mg PO DAILY@0600 RF: 0 montelukast 10 mg tablet 10 mg PO DAILY@0600 RF: 0 omeprazole 20 mg capsule,delayed release(DR/EC) 20 mg PO DAILY@0600 RF: 0 medroxyprogesterone [Depo-Provera] 150 mg/mL syringe IM RF: 0 cephalexin 500 mg capsule 500 mg PO Q8H 10 Days Qty: 30 RF: 0 albuterol sulfate 90 mcg/actuation HFA aerosol inhaler 1 inh inhalation QID PRN (Reason: shortness of breath or wheezing) Qty: 6.7 RF: 0 Miralax 17 gram Powder In Packet 17 g PO DAILY@0600 RF: 0 ibuprofen 200 mg Tablet 200 - 400 mg PO Q6H PRN (Reason: Pain) RF: 0 dicyclomine 10 mg capsule See Rx Instructions .ROUTE .COMPLEX RF: 0 Peppermint Pills 1 tab PO DAILY@0600 RF: 0 vitamin E 1 tab PO DAILY@0600 RF: 0 Lexapro 20 mg tablet 20 mg PO DAILY Qty: 30 RF: 0 Discharge Orders: Discharge ED (Routine); Ordered 08/22/21 Ordered By: Melani Mixon Discharge Diet: Advance as tolerated Discharge Activity: Resume usual activity Activity Restrictions/Additional Instructions: our evaluation, including labs and CT of your brain, were unremarkable. Please follow up with your primary care physician within two days. If you do not have a primary doctor, you can call your insurance company to find one. If you do not have insurance, you can look for one on this of local clinics or go to the finance/registration department for more assistance. Our case work aide will have you follow-up with Dr. Gibson in the next few days. You would be expected to have a phone call with our case work aide who will put you on the schedule. Return to the Emergency Department if you experience recurrent seizures, difficulty walking or moving your arms or legs, slurred speech, difficulty with normal activities, abnormal behavior, vision changes, or for any other concerning symptoms. Coding Level of Care Code ED Pantry Chef for Sherice Jaramillo
[2021-08-22] MEDS: levETIRAcetam 500 mg Tablet 1000 MG PO (00:32)
--- NOTE | 2021-08-22 01:09 | CTR_ITS ---
PROCEDURE INFORMATION: Exam: CT Head Without Contrast Exam date and time: 08/22/2021 1:09 AM Age: 20 years old Clinical indication: Patient HX: Seizure last night with residual headache. ; Additional info: First time seizure TECHNIQUE: Imaging protocol: Computed tomography of the head without contrast. Radiation optimization: All CT scans at this facility use at least one of these dose optimization techniques: automated exposure control; mA and/or kV adjustment per patient size (includes targeted exams where dose is matched to clinical indication); or iterative reconstruction. COMPARISON: No relevant prior studies available. RADIATION DOSE METRICS: Total DLP (mGy-cm): 858.81 FINDINGS: Brain: No acute intracranial hemorrhage or mass effect. No definite acute infarct by CT. MRI could be more sensitive/specific for detection, as clinically directed. Cerebral ventricles: Ventricle size is normal for age. Paranasal sinuses: Included paranasal sinuses are essentially clear. Mastoid air cells: No significant acute finding. Bones/joints: No definite acute skull fracture. CT/CT head wo con* [id number] IMPRESSION: 1. No acute intracranial hemorrhage or mass effect. 2. No definite acute infarct by CT, see above. 3. Other findings discussed above. Radiation Dose CTDIVOL = (mGy): DLP = 858.81 (mGy-cm)
[2021-08-22 01:51] VITALS: BP 138/74; PULSE 67; RESP 17; O2SAT 100
--- NOTE | 2021-08-22 08:22 | DCPLANNER ---
spa assistant manager had message to schedule a follow up appointment for patient with Dr. Maria office. spa assistant manager emailed patients information to the neurology clinic. Patients information will be printed and reviewed. Clinic will call patient with appointment information.
--- NOTE | 2021-08-24 14:59 | DCPLANNER ---
software design manager was contacted by Dr. Maria office, was told that clinic tried to reach patient, but was unable to speak with patient or leave a voicemail for patient.
== END 2021-08-22 01:51 | disposition home or self-care (01) ==
PROVIDERS: Emergency Provider Emergency Medicine
DX: R56.9 Unspecified convulsions (principal)
CPT/HCPCS: 70450; 80053; 83690; 84702; 85025; 99283

== ENCOUNTER 2021-08-30 16:49 | Emergency (ER) | payer MEDICAID, SELFPAY ==
[2021-08-30 16:51] VITALS: BP 146/99; PULSE 87; RESP 18; TEMP 37; O2SAT 96
--- NOTE | 2021-08-30 17:06 | ED_ITS ---
HPI - General Adult General: Chief complaint: Psychiatric Symptoms Stated complaint: SI Time Seen by Provider: 08/30/21 17:03 History of Present Illness: HPI narrative: HPI: [20]yo patient w/ hx of depression BIBA for depression. for On arrival, the patient is AAOx3 and cooperative with my evaluation. No focal complaints of chest pain, shortness of breath, palpitations, N/V, focal GI/ complaints.Reports feeling sad because of family situation. Reports passive suicidal ideation, denies active SI. No VH/AH. Onset: chronic Duration: ongoing Location: home Severity: moderate Review of Systems Narrative: Constitutional: No fever, no chills. HEENT: No vision changes CV: No chest pain, no palpitations PULM: No productive cough, no dyspnea. GI: No abdominal pain, no N/V/D. : No dysuria MSKEL: No muscle pain SKIN: No new rashes, no lesions. NEURO: No headache, no focal weakness. HEME: No visible bruises PSYCH: Normal mood PFSH ED PFSH: Family History Other Cancer Diabetes Heart disease Seizure Social History Smoking and tobacco status: never smoked History of recent travel: No Female Reproductive History: Date of last menstrual period: 03/12/21 Physical Exam Narrative: EXAM NARRATIVE: Head: Atraumatic Eyes: PERRL, conjunctiva without injection, eyes tracking ENT: Mucous membrane moist NECK: Supple without lymphadenopathy LUNGS: LCTAB CV: RRR ABDOMEN: Soft, nontender EXTREMITY: Normal ROM SKIN: No rash or erythema NEURO: Awake and alert. No focal weakness PSYCH: Cooperative mood and affect. Course Vital Signs: Vital signs: Vital Signs Temperature 98.6 F 08/30/21 16:51 Pulse Rate 89 08/30/21 23:04 Respiratory Rate 16 08/30/21 23:04 Blood Pressure 122/78 08/30/21 23:04 Pulse Oximetry 99 08/30/21 23:04 MDM - General Adult MDM Narrative: Medical decision making narrative: [20]yo patient w/ hx of anxiety/depression presenting for acute depression and passive suicidal ideation. HDS, exam within normal limit Thoughts are linear and organized, and the patient has no AH/VH, or HI. Clinically the patient displays no overt toxidrome; they are well appearing, with low suspicion for toxic ingestion given history and exam. Symptoms unlikely 2/2 anemia, hypothyroidism, infection, or ICH. Workup: CBC, CMP, Lipase, salicylate/tylenol, UDS Lab findings: wnl [10:52] On reassessment, labs and workup wnl. Patient is hemodynamically stable with no acute medical complaints. Case discussed with psychiatric provider Dr. Goddard at [facility] psych inpatient who evaluated patient via telepsych and recommended discharge with close follow-up. Disposition: Discharge Lab Data: Labs: Lab Results 08/30/21 08/30/21 08/30/21 17:15 17:15 17:15 WBC 11.4 10^3/uL H 10 ^3/uL (4.0-10.0) RBC 4.71 10^6/uL 10^6 /uL (4.1-5.3) Hgb 13.7 g/dL g/dL (11.5-15.3) Hct 41.1 % % (37.0-47.0) MCV 87.3 fl fl (81-99) MCH 29.1 pg pg (28.0-34.0) MCHC 33.3 g/dL g/dL (30.0-36.0) RDW 12.9 % % (12.1-15.1) Plt Count 367 10^3/cmm 10^3 /cmm (130-400) MPV 9.4 fL fL (7.4-10.4) Neut % (Auto) 59.6 % % Lymph % (Auto) 28.3 % % Bartholomew % (Auto) 8.8 % % Eos % (Auto) 2.2 % % Baso % (Auto) 0.7 % % Neut # (Auto) 6.78 10^3/uL 10^3 /uL (1.8-7.7) Lymph # (Auto) 3.2 10^3/uL 10^3/ uL (0.8-4.8) Bartholomew # (Auto) 1.0 10^3/uL H 10^ 3/uL (0.2-0.9) Eos # (Auto) 0.3 10^3/uL 10^3/ uL (0.0-0.8) Baso # (Auto) 0.1 10^3/uL 10^3/ uL (0.0-0.1) Nucleated RBC % (a uto) 0 % % Nucleated RBCs # 0.0 /100WBC /100W BC Sodium 138 mmol/L mmol/L (136-145) Potassium 4.2 mmol/L mmol/L (3.5-5.1) Chloride 103 mmol/L mmol/L (98-107) Carbon Dioxide 21 mmol/L L mmol/ L (22-29) Anion Gap 18.2 (5-19) BUN 10 mg/dL mg/dL (6-20) Creatinine 0.6 mg/dL mg/dL (0.5-0.9) GFR Calculation 125.0 mL/min mL/m in (90-130) Glucose 87 mg/dL mg/dL (65-115) Calculated Osmolal ity 284 mOsm/kg L mOs m/kg (285-295) Calcium 9.6 mg/dL mg/dL (8.5-10.5) Total Bilirubin 0.2 mg/dL mg/dL (0.15-1.2) AST 23 U/L U/L (0-32) ALT 39 U/L H U/L (0-33) Alkaline Phosphata se 99 IU/L IU/L (35-105) Total Protein 7.4 g/dL g/dL (6.6-8.7) Albumin 4.5 g/dL g/dL (3.5-5.2) Globulin 2.9 g/dL g/dL (1.3-4.6) Lipase 27 U/L U/L (13-60) Ser , Nate i-Qnt 0.50 mIU/mL mIU/m L Urine Color Urine Appearance Urine pH Ur Specific Gravit y Urine Protein Urine Glucose (UA) Urine Ketones Urine Blood Urine Nitrate Urine Bilirubin Urine Urobilinogen Ur Leukocyte Mickie ase Salicylates < 0.3 mg/dL L mg/ dL (3-10) Urine Opiates Scre en Negative ng/mL ng /mL (Negative) Acetaminophen < 5.0 ug/mL L ug/ mL (10-30) Ur Barbiturates Sc reen Negative ng/mL ng /mL (Negative) Ur Phencyclidine S crn Negative ng/mL ng /mL (Negative) Ur Amphetamines Sc reen Negative ng/mL ng /mL (Negative) U Benzodiazepines Scrn Negative ng/mL ng /mL (Negative) Urine Cocaine Scre en Negative ng/mL ng /mL (Negative) U Marijuana (THC) Screen Negative ng/mL ng /mL (Negative) 08/30/21 17:15 WBC RBC Hgb Hct MCV MCH MCHC RDW Plt Count MPV Neut % (Auto) Lymph % (Auto) Bartholomew % (Auto) Eos % (Auto) Baso % (Auto) Neut # (Auto) Lymph # (Auto) Bartholomew # (Auto) Eos # (Auto) Baso # (Auto) Nucleated RBC % (a uto) Nucleated RBCs # Sodium Potassium Chloride Carbon Dioxide Anion Gap BUN Creatinine GFR Calculation Glucose Calculated Osmolal ity Calcium Total Bilirubin AST ALT Alkaline Phosphata se Total Protein Albumin Globulin Lipase Ser , Nate i-Qnt Urine Color Straw (Yellow) Urine Appearance Clear (CLEAR) Urine pH 7 (5-7) Ur Specific Gravit y 1.010 (1.005-1.030) Urine Protein Neg (Negative) Urine Glucose (UA) Norm (Normal) Urine Ketones Negative (Negative) Urine Blood Neg (Negative) Urine Nitrate Negative (Negative) Urine Bilirubin Neg (Negative) Urine Urobilinogen Norm mg/dL mg/dL (Negative) Ur Leukocyte Mickie ase Negative (Negative) Salicylates Urine Opiates Scre en Acetaminophen Ur Barbiturates Sc reen Ur Phencyclidine S crn Ur Amphetamines Sc reen U Benzodiazepines Scrn Urine Cocaine Scre en U Marijuana (THC) Screen Discharge Plan Discharge Patient Disposition: Home Clinical Impression: Depression, Anxiety Condition: Stable Prescriptions: No Action desipramine 50 mg tablet 50 mg PO DAILY@2100 RF: 0 loratadine 10 mg capsule 10 mg PO DAILY@0600 RF: 0 montelukast 10 mg tablet 10 mg PO DAILY@0600 RF: 0 omeprazole 20 mg capsule,delayed release(DR/EC) 20 mg PO DAILY@0600 RF: 0 medroxyprogesterone [Depo-Provera] 150 mg/mL syringe IM RF: 0 cephalexin 500 mg capsule 500 mg PO Q8H 10 Days Qty: 30 RF: 0 albuterol sulfate 90 mcg/actuation HFA aerosol inhaler 1 inh inhalation QID PRN (Reason: shortness of breath or wheezing) Qty: 6.7 RF: 0 Miralax 17 gram Powder In Packet 17 g PO DAILY@0600 RF: 0 ibuprofen 200 mg Tablet 200 - 400 mg PO Q6H PRN (Reason: Pain) RF: 0 dicyclomine 10 mg capsule See Rx Instructions .ROUTE .COMPLEX RF: 0 Peppermint Pills 1 tab PO DAILY@0600 RF: 0 vitamin E 1 tab PO DAILY@0600 RF: 0 Lexapro 20 mg tablet 20 mg PO DAILY Qty: 30 RF: 0 Keppra 500 mg tablet 500 mg PO Q12H 14 Days Qty: 28 RF: 0 Discharge Orders: Discharge ED (Routine); Ordered 08/30/21 Ordered By: Melani Mixon Discharge Diet: Advance as tolerated Discharge Activity: Resume usual activity Patient Instructions: Depression (ED), Anxiety (ED) Activity Restrictions/Additional Instructions: Please come back to the emergency room if you need help, have any hallucinations, or you have any depression or have thoughts about hurting yourself or other people. Coding Level of Care Code ED Sexual Assault Counselor for Sherice Jaramillo
[2021-08-30 17:24] LABS: Basophils # 0.1 10^3/uL (0.0-0.1); Basophils % 0.7 %; Eosinophils # 0.3 10^3/uL (0.0-0.8); Eosinophils % 2.2 %; Hematocrit 41.1 % (37.0-47.0); Hemoglobin 13.7 g/dL (11.5-15.3); Lymphocytes # 3.2 10^3/uL (0.8-4.8); Lymphocytes % 28.3 %; Mean Corpuscular HGB Conc 33.3 g/dL (30.0-36.0); Mean Corpuscular Hemoglobin 29.1 pg (28.0-34.0); Mean Corpuscular Volume 87.3 fl (81-99); Mean Platelet Volume 9.4 fL (7.4-10.4); Monocytes % 8.8 %; Neutrophils # 6.78 10^3/uL (1.8-7.7); Neutrophils % 59.6 %; Nucleated Red Blood Cells % 0 %; Platelet Count 367 10^3/cmm (130-400); Red Blood Count 4.71 10^6/uL (4.1-5.3); Red Cell Distribution Width 12.9 % (12.1-15.1); White Blood Count 11.4 10^3/uL (4.0-10.0)
[2021-08-30 17:34] LABS: Add Urine Microscopic? NO; Charge for UA Resulting for Rev
[2021-08-30 17:38] LABS: Bilirubin Urine Neg (Negative); Blood Urine Neg (Negative); Glucose Urine UA Norm (Normal); Ketones Urine Negative (Negative); Leukocyte Esterase Urine Negative (Negative); Nitrate Urine Negative (Negative); Protein Urine Neg (Negative); Urine Appearance Clear (CLEAR); Urine Color Straw (Yellow); Urobilinogen Urine Norm (Negative); pH Urine 7 (5-7)
[2021-08-30 17:47] LABS: Amphetamines Screen Urine Negative (Negative); Barbiturates Screen Urine Negative (Negative); Benzodiazepines Screen Urine Negative (Negative); Cocaine Screen Urine Negative (Negative); Opiate Screen Urine Negative (Negative); PCP Screen Urine Negative (Negative); THC Screen Urine Negative (Negative)
[2021-08-30 18:11] LABS: Acetaminophen < 5.0 ug/mL (10-30); Alanine Aminotransferase 39 U/L (0-33); Albumin Level 4.5 g/dL (3.5-5.2); Alkaline Phosphatase 99 IU/L (35-105); Anion Gap 18.2 (5-19); Aspartate Amino Transferase 23 U/L (0-32); Blood Urea Nitrogen 10 mg/dL (6-20); Calcium 9.6 mg/dL (8.5-10.5); Carbon Dioxide 21 mmol/L (22-29); Chloride 103 mmol/L (98-107); Creatinine Clr Calc Pharmacy 149.9197; Globulin 2.9 g/dL (1.3-4.6); Glucose 87 mg/dL (65-115); Lipase 27 U/L (13-60); Osmolality Calculated 284 mOsm/kg (285-295); Potassium 4.2 mmol/L (3.5-5.1); Salicylate < 0.3 mg/dL (3-10); Sodium 138 mmol/L (136-145); Total Bilirubin 0.2 mg/dL (0.15-1.2); Total Protein 7.4 g/dL (6.6-8.7)
[2021-08-30 23:04] VITALS: BP 122/78; PULSE 89; RESP 16; O2SAT 99
== END 2021-08-30 23:05 | disposition home or self-care (01) ==
PROVIDERS: Emergency Provider Emergency Medicine
DX: F41.8 Other specified anxiety disorders (principal)
CPT/HCPCS: 80053; 80306; 80307; 81003; 83690; 84702; 85025; 99284

== ENCOUNTER 2021-09-17 14:07 | Outpatient (CLI) | payer MEDICAID, SELFPAY ==
--- NOTE | 2021-09-17 14:30 | MR_ITS ---
WS: [id number] MRI LEFT KNEE NONCONTRAST TECHNIQUE: Axial PD, coronal PD fat sat, coronal PD, sagittal PD, and sagittal PD fat-sat images obta ined. CLINICAL INFORMATION: LEFT LATERAL KNEE PAIN COMPARISON: None. FINDINGS: Distal quadriceps and patella tendons are intact. Normal ACL and PCL. Medial and lateral meniscus are normal in appearance. Small amount of prepatellar soft tissue edema. Medial and lateral patellar ret inaculum are normal. Normal popliteal fossa. Normal medial and lateral collateral ligaments. Subchondral injury with associated edema involving the posterior lateral femoral condyle consistent w ith recent injury and osteochondral fracture/contusion. No significant depression. Normal tibial plat eau. MR/MR knee LT wo con* [id number] IMPRESSION: 1. Normal ACL and PCL. 2. Acute subchondral injury involving the posterior lateral femoral condyle me asuring 8.4 x 5.7 mm AP by transverse with associated edema. No significant dep ression. 3. Normal medial and lateral meniscus. 4. Medial and lateral collateral ligaments are intact. Outbridge grading: grade I: focal areas of hyperintensity with normal contour
== END 2021-09-17 14:08 | disposition home or self-care (01) ==
PROVIDERS: Visit Provider Physician Assistant
DX: M25.562 Pain in left knee (principal); S89.82XA Other specified injuries of left lower leg, initial encounter; X58.XXXA Exposure to other specified factors, initial encounter
CPT/HCPCS: 73721

== ENCOUNTER → 2021-09-19 08:08 | Outpatient (BNVA) | payer MEDICAID, SELFPAY | PROVIDERS: Visit Provider Specialist | DX: M25.562 Pain in left knee (principal); M25.561 Pain in right knee | CPT/HCPCS: 73560; 73565 ==

== ENCOUNTER → 2021-11-26 10:18 | Outpatient (BNVA) | payer MEDICAID, SELFPAY | PROVIDERS: Visit Provider Registered Nurse | DX: R05.9 Cough, unspecified (principal); Z20.828 Contact with and (suspected) exposure to other viral communicable diseases | CPT/HCPCS: 87400; 87635 ==

== ENCOUNTER 2022-02-14 08:03 | Outpatient (CLI) | payer MEDICAID, SELFPAY ==
--- NOTE | 2022-02-14 08:20 | NM_ITS ---
WS: [id number] NUCLEAR MEDICINE HIDA SCAN CLINICAL INFORMATION: RUQ PAIN TECHNIQUE: Following intravenous administration of 7.6 mCi of technetium 99m mebrofenin, images of th e abdomen were obtained over the course of 60 minutes. Next, gallbladder ejection fraction was determ ined by obtaining preprandial and one-hour postprandial images of the gallbladder following oral tiera stion of Ensure. COMPARISON: December 11, 2021 FINDINGS: Hepatomegaly. Normal hepatic uptake and normal hepatic excretion. Gallbladder is visualized by 50 min utes. Normal small bowel and common bile duct activity. Normal gallbladder ejection fraction 78% within normal limits. NM/NM hepatobiliary w phar* [id number] IMPRESSION: 1. No evidence of acute or chronic cholecystitis. 2. Normal gallbladder ejection fraction 78% within normal limits. 3. Mild hepatomegaly.
== END 2022-02-14 08:04 | disposition home or self-care (01) ==
LOC: RAD 08:04
PROVIDERS: PCP Registered Nurse; Visit Provider Physician Assistant
DX: R10.11 Right upper quadrant pain (principal); R16.0 Hepatomegaly, not elsewhere classified
CPT/HCPCS: 78227; A9537

== ENCOUNTER 2022-03-26 16:25 | Inpatient (IN) | payer MEDICAID, SELFPAY ==
--- NOTE | 2022-03-26 17:01 | W.ED.PSYCHS ---
HPI - Psych General: Chief Complaint: Psychiatric Symptoms Stated Complaint: MHE Time Seen by Provider: 03/26/22 17:00 History of Present Illness: Mr. Swain is a 21-year-old lady with history of ADHD and learning disability with autistic features who presents to the emergency department due to depression with suicidal ideation. She was previously on medications though reports that they did not significantly help and has not been on them for some time. Over the past few weeks she has felt more depressed with thoughts of suicide and being better off . She reported to nursing staff that there were some social stressors however denies this/does not endorse this specifically to me. She denies specific actions or a specific plan. Course of symptoms has been worsening. Intensity is moderate to severe. She has associated poor sleep and appetite changes and increased anxiety. Onset (ago): week(s) History of same: Yes Associated psychiatric symptoms: depression and suicidal ideation Review of Systems General: Reports: 10 or more systems reviewed and unremarkable except in HPI and below PFSH ED PFSH: Medical History (Updated 03/27/22 @ 15:13 by Alex Goddard MD) Asperger's syndrome Attention-deficit hyperactivity disorder, combined type Psychiatric care Family History Other Cancer Diabetes Heart disease Seizure Social History History of recent travel: No Female Reproductive History: Date of last menstrual period: 03/12/21 Physical Exam Const: COMMON NORMALS: alert GENERAL APPEARANCE: cooperative and well developed HENMT: COMMON NORMALS: normocephalic and atraumatic HEAD & SCALP: normocephalic and atraumatic Eye: COMMON NORMALS: conjunctivae normal CONJUNCTIVA: Yes conjunctivae normal SCLERA: sclerae normal Neck/C-Spine: COMMON NORMALS: supple GENERAL: Yes trachea midline Resp: COMMON NORMALS: normal respiratory effort EFFORT & INSPECTION: Yes able to speak in complete sentences Cardio: COMMON NORMALS: regular rate and regular rhythm RATE: regular rate RHYTHM: regular rhythm GI: COMMON NORMALS: Soft to palpation PALPATION: Yes Soft to palpation and No Tenderness to palpation present (GI) PERCUSSION: normal to percussion Extremity: GENERAL: Yes normal exam except as noted and No edema Neuro: COMMON NORMALS: moves all extremities SENSORIUM/ORIENTATION: Yes alert and No Orientation impaired Psych: COMMON NORMALS: mental status grossly normal and Normal thought process present MOOD & AFFECT: Yes depressed mood THOUGHT PROCESS: Normal thought process present Course ED course: - Patient was seen and evaluated by me at bedside -Vital signs obtained - Initial evaluation notable for exam as above - Labspersonally interpreted by me - Labs notable for no significant hematologic abnormality. Metabolic panel without acute electrolyte derangement. AST and ALT elevated of uncertain etiology, discussed with patient who reports history of fatty liver. Recommend continued outpatient evaluation given absence of abdominal/GI symptoms. -Discussed with Dr. Goddard of the psychiatry service to agreed to admit the patient to the Neuropsych Unit. -Based on ED evaluation at this point there is no obvious condition that would preclude the patient from inpatient management of psychiatric concerns. Vital Signs: Vital signs: Vital Signs Temperature 97.9 F 03/28/22 20:43 Pulse Rate 87 03/28/22 20:43 Respiratory Rate 16 03/28/22 20:43 Blood Pressure 120/80 03/28/22 20:43 Pulse Oximetry 98 03/28/22 20:43 MDM - Psych Medical Decision Making 21-year-old lady presenting with worsening depression not taking medication, and suicidal ideation. Satisfactory for inpatient management and admitted to neuropsych unit. Medical Records I reviewed the patient's medical records. Lab Data I reviewed the patient's lab results. : 03/26/22 17:25 03/26/22 17:25 Laboratory Results WBC 9.9 10^3/uL (4.0-10.0) 03/26/22 17: RBC 4.65 10^6/uL (4.1-5.3) 03/26/22 17: Hgb 13.4 g/dL (11.5-15.3) 03/26/22 17:25 Hct 39.9 % (37.0-47.0) 03/26/22 17:25 MCV 85.8 fl (81-99) 03/26/22 17:25 MCH 28.8 pg (28.0-34.0) 03/26/22 17: MCHC 33.6 g/dL (30.0-36.0) 03/26/22 17: RDW 13.6 % (12.1-15.1) 03/26/22 17: Plt Count 353 10^3/cmm (130-400) 03/26/22 17:25 MPV 10.0 fL (7.4-10.4) 03/26/22 17:25 Neut % (Auto) 56.9 % 03/26/22 17:25 Lymph % (Auto) 29.0 % 03/26/22 17:25 Snyder % (Auto) 10.6 % 03/26/22 17:25 Eos % (Auto) 2.2 % 03/26/22 17:25 Baso % (Auto) 0.7 % 03/26/22 17:25 Neut # (Auto) 5.63 10^3/uL (1.8-7.7) 03/26/22 17: Lymph # (Auto) 2.9 10^3/uL (0.8-4.8) 03/26/22 17:25 Snyder # (Auto) 1.1 10^3/uL (0.2-0.9) H 03/26/22 17:25 Eos # (Auto) 0.2 10^3/uL (0.0-0.8) 03/26/22 17:25 Baso # (Auto) 0.1 10^3/uL (0.0-0.1) 03/26/22 17: Nucleated RBC % (auto) 0 % 03/26/22 17: Nucleated RBCs # 0.0 /100WBC 03/26/22 17:25 Sodium 136 mmol/L (136-145) 03/26/22 17:25 Potassium 3.6 mmol/L (3.5-5.1) 03/26/22 17:25 Chloride 102 mmol/L (98-107) 03/26/22 17:25 Carbon Dioxide 22 mmol/L (22-29) 03/26/22 17:25 Anion Gap 15.6 (5-19) 03/26/22 17:25 BUN 7 mg/dL (6-20) 03/26/22 17:25 Creatinine 0.4 mg/dL (0.5-0.9) L 03/26/22 17:25 GFR Calculation 197.8 mL/min (90-130) H 03/26/22 17:25 Glucose 258 mg/dL (65-115) H 03/26/22 17:25 Calculated Osmolality 289 mOsm/kg (285-295) 03/26/22 17:25 Calcium 8.8 mg/dL (8.5-10.5) 03/26/22 17:25 Total Bilirubin 0.2 mg/dL (0.15-1.2) 03/26/22 17:25 AST 161 U/L (0-32) H 03/26/22 17:25 ALT 201 U/L (0-33) H 03/26/22 17:25 Alkaline Phosphatase 142 IU/L (35-105) H 03/26/22 17:25 Total Protein 6.5 g/dL (6.6-8.7) L 03/26/22 17:25 Albumin 4.4 g/dL (3.5-5.2) 03/26/22 17:25 Globulin 2.1 g/dL (1.3-4.6) 03/26/22 17:25 TSH 1.41 uIU/mL (0.27-4.20) 03/26/22 17:25 HCG, Qual Negative (Negative) 03/26/22 17:25 Salicylates < 0.3 mg/dL (3-10) L 03/26/22 17:25 Urine Opiates Screen Negative ng/mL (Negative) 03/26/22 17:03 Acetaminophen < 5.0 ug/mL (10-30) L 03/26/22 17:25 Ur Barbiturates Screen Negative ng/mL (Negative) 03/26/22 17:03 Ur Phencyclidine Scrn Negative ng/mL (Negative) 03/26/22 17:03 Ur Amphetamines Screen Negative ng/mL (Negative) 03/26/22 17:03 U Benzodiazepines Scrn Negative ng/mL (Negative) 03/26/22 17:03 Urine Cocaine Screen Negative ng/mL (Negative) 03/26/22 17:03 U Marijuana (THC) Screen Negative ng/mL (Negative) 03/26/22 17:03 Ethyl Alcohol < 10 mg/dL (0-10) 03/26/22 17:25 Discharge Plan Discharge Patient Disposition: Admitted As Inpatient Admit Provider: Alex Goddard Clinical Impression: Suicidal ideation, Abnormal transaminases Condition: Stable Coding Level of Care Code ED Mortgage Accounting Clerk for Sherice Jaramillo
[2022-03-26 17:02] VITALS: BP 160/90; PULSE 128; RESP 16; TEMP 36.8; O2SAT 96; BMI 29.2
--- NOTE | 2022-03-26 17:36 | PC.PHAR ---
PT AND PTS GRANDMOTHER STATES THE PT TAKES CARE OF HER OWN MEDICATIONS-PT STATES SHE TAKES THE MEDICATIONS ENTERED-[facility] STATES THEY HAVE PROPRANOLOL 20MG BID ON HOLD RX WRITTEN 03/11/22 PT STATES SHE IS TAKING-NOTES ARE MADE IN THE PHARMACY COMMENTS-PT STATES LEXAPRO WAS DCED RX LAST FILLED OCT 2021 HAS 2 REFILLS 10MG DAILY-
[2022-03-26 18:32] LABS: HCG Qualitative Urine. Negative (Negative)
[2022-03-26 18:33] LABS: Basophils # 0.1 10^3/uL (0.0-0.1); Basophils % 0.7 %; Eosinophils # 0.2 10^3/uL (0.0-0.8); Eosinophils % 2.2 %; Hematocrit 39.9 % (37.0-47.0); Hemoglobin 13.4 g/dL (11.5-15.3); Lymphocytes # 2.9 10^3/uL (0.8-4.8); Mean Corpuscular HGB Conc 33.6 g/dL (30.0-36.0); Mean Corpuscular Hemoglobin 28.8 pg (28.0-34.0); Mean Corpuscular Volume 85.8 fl (81-99); Monocytes # 1.1 10^3/uL (0.2-0.9); Monocytes % 10.6 %; Neutrophils # 5.63 10^3/uL (1.8-7.7); Neutrophils % 56.9 %; Nucleated Red Blood Cells % 0 %; Platelet Count 353 10^3/cmm (130-400); Red Blood Count 4.65 10^6/uL (4.1-5.3); Red Cell Distribution Width 13.6 % (12.1-15.1); White Blood Count 9.9 10^3/uL (4.0-10.0)
[2022-03-26 18:39] LABS: Amphetamines Screen Urine Negative (Negative); Barbiturates Screen Urine Negative (Negative); Benzodiazepines Screen Urine Negative (Negative); Cocaine Screen Urine Negative (Negative); Opiate Screen Urine Negative (Negative); PCP Screen Urine Negative (Negative); THC Screen Urine Negative (Negative)
[2022-03-26 18:59] VITALS: BP 144/93; PULSE 110; RESP 16; O2SAT 94
[2022-03-26 19:07] LABS: Alanine Aminotransferase 201 U/L (0-33); Albumin Level 4.4 g/dL (3.5-5.2); Alkaline Phosphatase 142 IU/L (35-105); Anion Gap 15.6 (5-19); Aspartate Amino Transferase 161 U/L (0-32); Blood Urea Nitrogen 7 mg/dL (6-20); Calcium 8.8 mg/dL (8.5-10.5); Carbon Dioxide 22 mmol/L (22-29); Chloride 102 mmol/L (98-107); Globulin 2.1 g/dL (1.3-4.6); Glomerular Filtration Rate 197.8 mL/min (90-130); Glucose 258 mg/dL (65-115); Osmolality Calculated 289 mOsm/kg (285-295); Potassium 3.6 mmol/L (3.5-5.1); Sodium 136 mmol/L (136-145); Thyroid Stimulating Hormone 1.41 uIU/mL (0.27-4.20); Total Bilirubin 0.2 mg/dL (0.15-1.2); Total Protein 6.5 g/dL (6.6-8.7)
--- NOTE | 2022-03-26 19:07 | PC.NURSE ---
190 assumed pt care from Bridget NEAL
[2022-03-26 19:09] LABS: Acetaminophen < 5.0 ug/mL (10-30); Alcohol Level < 10 mg/dL (0-10); Salicylate < 0.3 mg/dL (3-10)
[2022-03-26 21:28] VITALS: BP 149/101; PULSE 94; RESP 18; TEMP 36.3; O2SAT 100
[2022-03-26 22:00] VITALS: BP 149/101; PULSE 94; RESP 18; TEMP 36.3; O2SAT 100
[2022-03-26] MEDS: trazodone 50 mg Tablet PO (22:04)
[2022-03-26] MEDS: quetiapine XR (24HR) 50 mg Tablet PO (22:04)
[2022-03-26] MEDS: dicyclomine 10 mg Capsule PO (22:04)
--- NOTE | 2022-03-26 22:43 | PC.ADMIT ---
Admission Note:Mrs. Swain is a 21-year-old lady with history of ADHD and learning disability with autistic features who presents to the emergency department due to depression with suicidal ideation. She was previously on medications though reports that they did not significantly help and has not been on them for some time. Over the past few weeks she has felt more depressed with thoughts of suicide and being better off . She reported to nursing staff that there were some social stressors however denies this/does not endorse this specifically to me. She denies specific actions or a specific plan. Course of symptoms has been worsening. Intensity is moderate to severe. She has associated poor sleep and appetite changes and increased anxiety. The patient,Ella Swain,21 y/o, was given written information regarding hospital policies, unit procedures and contact persons. Patient's smoking status: . Vital Signs - 8 hr 03/26/22 17:02 03/26/22 18:59 03/26/22 21:28 Temperature 98.3 F 97.4 F L Pulse Rate 128 H 110 H 94 Respiratory Rate 16 16 18 Blood Pressure 160/90 144/93 149/101 Pulse Oximetry 96 94 100 03/26/22 22:00 Temperature 97.4 F L Pulse Rate 94 Respiratory Rate 18 Blood Pressure 149/101 Pulse Oximetry 100
[2022-03-26] MEDS: acetaminophen 325 mg Tablet 650 MG PO (23:46)
[2022-03-27 05:41] VITALS: BP 133/91; PULSE 110; RESP 19; TEMP 36.8; O2SAT 98
[2022-03-27] MEDS: cetirizine 10 mg Tablet PO (09:14)
[2022-03-27] MEDS: lisinopril 10 mg Tablet PO (09:15)
[2022-03-27] MEDS: fluticasone nasal spray 16gm Btl 2 SPRAY INTRANASAL (09:15)
[2022-03-27] MEDS: dicyclomine 10 mg Capsule PO ×4 (09:15→20:08)
[2022-03-27] MEDS: propranolol 20 mg Tablet PO ×2 (10:29→17:29)
[2022-03-27 10:55] VITALS: PULSE 65; RESP 18; O2SAT 97
[2022-03-27 14:00] VITALS: BP 117/73; PULSE 106; RESP 18; TEMP 36.5; O2SAT 98
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
[2022-03-27] MEDS: trazodone 50 mg Tablet PO (20:08)
[2022-03-27] MEDS: quetiapine XR (24HR) 50 mg Tablet PO (20:09)
[2022-03-27 20:57] VITALS: BP 140/89; PULSE 106; RESP 16; TEMP 36.5; O2SAT 98
[2022-03-27 22:00] VITALS: RESP 17
[2022-03-27] MEDS: acetaminophen 325 mg Tablet 650 MG PO (22:17)
[2022-03-28 06:00] VITALS: BP 124/81; PULSE 88; RESP 20; TEMP 36.7; O2SAT 96
[2022-03-28] MEDS: propranolol 20 mg Tablet PO ×2 (09:40→17:06)
[2022-03-28] MEDS: dicyclomine 10 mg Capsule PO ×4 (09:40→19:59)
[2022-03-28] MEDS: lisinopril 10 mg Tablet PO (09:40)
[2022-03-28] MEDS: cetirizine 10 mg Tablet PO (09:40)
--- NOTE | 2022-03-28 13:24 | P.NPUPN_ITS ---
Subjective NPU Subjective: She says that she is doing much better. She was stressed out because there were too many changes all at one time. She moved out of her parent's home into a place with her fijoyce?. They have been dating for about 3 months. They are planning on getting sometime next year. They get al elton very well. There were just too many changes at 1 time and it stressed her out. She was having suicidal ideation but not anymore. She is confident that things will be fine if she is discharged. Her propranolol and Seroquel are prescribed by her primary care doctor and she is happy with that and does not feel any changes are necessary. She has an appointment with her therapist, Nyla on April 16. They normally see each other every 2 or 4 weeks. We will see if we can get that moved up. Mental Status Exam MSE Comments: This is a overweight versus obese white female in hospital scrubs with limited grooming and eye contact. No abnormal movements. Cooperative with exam in no acute distress. Speech was slightly decreased rate and volume and childlike with some difficulty with Rs. Mood described as good, affect congruent. Thought process, organized. Thought content: patient denies any shaun cidal or homicidal ideation, no delusions reported or noted, and denies any auditory or visual hallucinations. Attention and concentration were intact and memory is reliable but none were formally tested. She is alert and oriented three times. Insight and judgment are limited. Impulse control is limited. Intellectual ability is limited. Cognition: Patient Appearance: Appropriate Level of Consciousness: Awake, Alert, Appropriate and Follows Commands Patient Cognition Impaired: No Ability to Follow Directions: Good Patient Orientation (long list): Person, Place, Name, Age and Birthday Comprehension Ability: Mild Impairment Hallucination Type: None Delusion Description: Not Present Thought Process: Appropriate Affect: Affect Description: Appropriate and Calm Depressive Symptoms: Insomnia, Increased Anxiety and Increased Fatigue Behavior: Patient Behavior: Appropriate and Cooperative Speech Pattern: Appropriate and Clear Vitals/I&O/Wt Last Vital Signs Temp 98.1 F 03/28/22 06:00 Pulse 88 03/28/22 06:00 Resp 20 H 03/28/22 06:00 BP 124/81 03/28/22 06:00 Pulse Ox 96 03/28/22 06:00 Weight last 48 hrs Weight 77.111 kg Data NPU : 03/26/22 17:25 03/26/22 17:25 A&P Assessment and plan (1) Suicidal ideation: Status: Acute (2) Attention-deficit hyperactivity disorder, combined type: Status: Acute (3) Asperger's syndrome: Status: Acute Plan This is a 21 year old white female with intellectual disability, 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 1. Continue current medications. 2. Encourage individual, group and milieu therapy 3. Continue q-15 minute check for safety 4. Will reach out the family for collateral information prior to discharge. Based on her intellectual functioning, this is likely intermittent explosive/poor impulse control type behavior that is fairly standard. Involuntary Hold Information 96 Hour Hold: 96 Hour Involuntary Admission: No Attestations NPU Medical Necessity Statement*: Inpatient hospitalization is medically necessary and the clinically appropriate intervention at this time. We will initiate medications and make changes as indicated. Coding Level of Care Code Acute Information Systems Security Manager for Sherice Jaramillo Diagnoses Suicidal ideation R45.851 Attention-deficit hyperactivity disorder, combined type F90.2 Asperger's syndrome F84.5
--- NOTE | 2022-03-28 13:58 | PC.SOCIAL ---
Patient did not attend group.
[2022-03-28 14:00] VITALS: BP 115/78; PULSE 87; RESP 17; TEMP 36.9; O2SAT 98
[2022-03-28] MEDS: acetaminophen 325 mg Tablet 650 MG PO (18:21)
--- NOTE | 2022-03-28 18:23 | PC.NURSE ---
PRN MEDICATION C/O STUBBING LEFT TOE IN DAY AREA AND REPORTS PAIN 9/10. TYLENOL 650 MG GIVEN ORDERED.
[2022-03-28] MEDS: trazodone 50 mg Tablet PO (19:58)
[2022-03-28] MEDS: quetiapine XR (24HR) 50 mg Tablet PO (19:59)
[2022-03-28 20:43] VITALS: BP 120/80; PULSE 87; RESP 16; TEMP 36.6; O2SAT 98
--- NOTE | 2022-03-29 04:31 | PC.NURSE ---
PATIENT REQUESTED MEDICATION TO HELP HER SLEEP. TRAZADONE WAS GIVEN
[2022-03-29 06:00] VITALS: BP 120/81; PULSE 87; RESP 16; TEMP 36.5; O2SAT 98
--- NOTE | 2022-03-29 07:12 | P.NPUDS_ITS ---
Diagnoses at Discharge Discharge Diagnosis (1) Suicidal ideation: Status: Acute (2) Attention-deficit hyperactivity disorder, combined type: Status: Acute (3) Asperger's syndrome: Status: Acute Reason for Visit Reason for Visit: MHE Brief History: History of Present Illness Ella Swain is a 21 year old female who presented to the emergency department report: Chief Complaint: Psychiatric Symptoms Stated Complaint: MHE Time Seen by Provider: 03/26/22 17:00 History of Present Illness:?? Mr. Swain is a 21-year-old lady with history of ADHD and learning disability with autistic features who presents to the emergency department due to depression with suicidal ideation.? She was previously on medications though reports that they did not significantly help and has not been on them for some time.? Over the past few weeks she has felt more depressed with thoughts of suicide and being better off .? She reported to nursing staff that there were some social stressors however denies this/does not endorse this specifically to me.? She denies spShe was admitted to the neuropsychiatric unit for definitive treatment of those issues. She presents today reporting she has never been psychiatrically admitted but that she has had outpatient treatment at [facility]. She reports that she is on medication for her mental health issues that include Propranolol and Seroquel. She denies tobacco, alcohol, marijuana or any other illicit drug use. She reports that when she was little she got stressed out because she was always fighting with her brother and her brother was fighting with her parents all the time and she endorses she got over that well. She reports that she did have suicide attempts in the past by taking a couple of bottles of pills. She denies self-injurious behavior. The reason she is here today is because her job analyst thought that the anxiety/panic attack that she had the other day needed her to be evaluated in the hospital. She reports she has been stressed recently as there have been significant changes. She reports that last friday she moved out of her parents? house into her fiance?s house. She reports that it was a good decision but she just doesn?t do well with change. She reports the new environment has been challenging and there were points that it is overwhelming but it is because of how she manages things not that there is any problem there. We discussed the risks, benefits and alternatives of increasing the Propranolol to 3 times a day and she understood and agreed to proceed as is documented in this note. Hospital Course Hospital Course She slowly acclimated to the individual, group and milieu therapies provided. He was continued on her outpatient medications with no changes. She tolerated these doses and showed steady improvement during her stay. She was able to contract for safety outside hospital prior to discharge. During the hospitalization, patient had routine laboratory studies which were within normal limits except for few outliers. Additionally there was a general medical evaluation which was also within normal limits and revealed no new acute processes. Discharge Summary: At the time of discharge, lethality was denied. Mood and anxiety were well managed. Patient endorsed a plan to follow-up with the aftercare recommendations of the treatment team. Patient was evaluated and deemed to be absent credible lethality, and had achieved the maximum benefit from an inpatient hospitalization, so was discharged. Involuntary Hold Information 96 Hour Hold: 96 Hour Involuntary Admission: No Mental Status Exam MSE Comments: This is a overweight versus obese white female in hospital scrubs with limited grooming and eye contact. No abnormal movements. Cooperative with exam in no acute distress. Speech was slightly decreased rate and volume and childlike with some difficulty with Rs. Mood described as good, affect congruent. Thought process, organized. Thought content: patient denies any suicidal or homicidal ideation, no delusions reported or noted, and denies any auditory or visual hallucinations. Attention and concentration were intact and memory is reliable but none were formally tested. She is alert and oriented three times. Insight and judgment are limited. Impulse control is limited. Intellectual ability is limited. Cognition: Patient Appearance: Appropriate Level of Consciousness: Awake, Alert, Appropriate and Follows Commands Patient Cognition Impaired: No Ability to Follow Directions: Good Patient Orientation (long list): Person, Place, Name, Age and Birthday Comprehension Ability: Mild Impairment Hallucination Type: None Delusion Description: Not Present Thought Process: Appropriate Affect: Affect Description: Appropriate and Calm Depressive Symptoms: Insomnia, Increased Anxiety and Increased Fatigue Behavior: Patient Behavior: Appropriate and Cooperative Speech Pattern: Appropriate and Clear Discharge Data Studies Completed and Pending: Laboratory Results WBC 9.9 10^3/uL (4.0- 10.0) 03/26/22 17:25 RBC 4.65 10^6/uL (4.1 -5.3) 03/26/22 17:25 Hgb 13.4 g/dL (11.5-1 5.3) 03/26/22 17:25 Hct 39.9 % (37.0-47.0 ) 03/26/22 17:25 MCV 85.8 fl (81-99) 03/26/22 17:25 MCH 28.8 pg (28.0-34. 0) 03/26/22 17: MCHC 33.6 g/dL (30.0-3 6.0) 03/26/22: RDW 13.6 % (12.1-15.1 ) 03/26/22 17: Plt Count 353 10^3/cmm (130 -400) 03/26/22 17:25 MPV 10.0 fL (7.4-10.4 ) 03/26/22 17: Neut % (Auto) 56.9 % 03/26/22 17: Lymph % (Auto) 29.0 % 03/26/22 17: [place] % (Auto) 10.6 % 03/26/22 17: Eos % (Auto) 2.2 % 03/26/22 17: Baso % (Auto) 0.7 % 03/26/22 17: Neut # (Auto) 5.63 10^3/uL (1.8 -7.7) 03/26/22 17: Lymph # (Auto) 2.9 10^3/uL (0.8- 4.8) 03/26/22 17:25 [place] # (Auto) 1.1 10^3/uL (0.2- 0.9) H 03/26/22: Eos # (Auto) 0.2 10^3/uL (0.0- 0.8) 03/26/22 17:25 Baso # (Auto) 0.1 10^3/uL (0.0- 0.1) 03/26/22: Nucleated RBC % (a uto) 0 % 03/26/22: Nucleated RBCs # 0.0 /100WBC 03/26/22 17:25 Sodium 136 mmol/L (136-1 45) 03/26/22 17:25 Potassium 3.6 mmol/L (3.5-5 .1) 03/26/22 17: Chloride 102 mmol/L (98-10 7) 03/26/22 17:25 Carbon Dioxide 22 mmol/L (22-29) 03/26/22 17:25 Anion Gap 15.6 (5-19) 03/26/22 17:25 BUN 7 mg/dL (6-20) 03/26/22 17:25 Creatinine 0.4 mg/dL (0.5-0. 9) L 03/26/22 17:25 GFR Calculation 197.8 mL/min (90- 130) H 03/26/22 17:25 Glucose 258 mg/dL (65-115 ) H 03/26/22 17:25 Calculated Osmolal ity 289 mOsm/kg (285- 295) 03/26/22 17:25 Calcium 8.8 mg/dL (8.5-10 .5) 03/26/22 17:25 Total Bilirubin 0.2 mg/dL (0.15-1 .2) 03/26/22 17:25 AST 161 U/L (0-32) H 03/26/22 17:25 ALT 201 U/L (0-33) H 03/26/22 17:25 Alkaline Phosphata se 142 IU/L (35-105) H 03/26/22 17:25 Total Protein 6.5 g/dL (6.6-8.7 ) L 03/26/22 17:25 Albumin 4.4 g/dL (3.5-5.2 ) 03/26/22 17:25 Globulin 2.1 g/dL (1.3-4.6 ) 03/26/22 17:25 TSH 1.41 uIU/mL (0.27 -4.20) 03/26/22 17:25 HCG, Qual Negative (Negati ve) 03/26/22 17:25 Salicylates < 0.3 mg/dL (3-10 ) L 03/26/22 17:25 Urine Opiates Scre en Negative ng/mL (N egative) 03/26/22 17:03 Acetaminophen < 5.0 ug/mL (10-3 0) L 03/26/22 17:25 Ur Barbiturates Sc reen Negative ng/mL (N egative) 03/26/22 17:03 Ur Phencyclidine S crn Negative ng/mL (N egative) 03/26/22 17:03 Ur Amphetamines Sc reen Negative ng/mL (N egative) 03/26/22 17:03 U Benzodiazepines Scrn Negative ng/mL (N egative) 03/26/22 17:03 Urine Cocaine Scre en Negative ng/mL (N egative) 03/26/22 17:03 U Marijuana (THC) Screen Negative ng/mL (N egative) 03/26/22 17:03 Ethyl Alcohol < 10 mg/dL (0-10) 03/26/22 17:25 Vitals: Last Vital Signs Temp 97.7 F 03/29/22 06:00 Pulse 87 03/29/22 06:00 Resp 16 03/29/22 06:00 BP 120/81 03/29/22 06:00 Pulse Ox 98 03/29/22 06:00 Discharge Plan Discharge Patient Disposition: Home Condition: Stable Prescriptions: Continued montelukast 10 mg tablet 10 mg PO DAILY 0RF albuterol sulfate 90 mcg/actuation HFA aerosol inhaler 1 inh inhalation QID PRN (Reason: shortness of breath or wheezing) Qty: 6.7 0RF polyethylene glycol 3350 [Miralax] 17 gram Powder In Packet 17 g PO DAILY PRN (Reason: Constipation) 0RF Peppermint Pills 1 tab PO DAILY 0RF vitamin E 1 tab PO DAILY 0RF tizanidine 2 mg tablet 2 mg PO Q8H PRN (Reason: Spasms) 0RF albuterol sulfate 2.5 mg /3 mL (0.083 %) solution for nebulization 2.5 mg inhalation QID PRN (Reason: Shortness Of Breath) 0RF omeprazole 40 mg capsule,delayed release(DR/EC) 40 mg PO DAILY PRN (Reason: Heartburn) 0RF lisinopril 10 mg tablet 10 mg PO DAILY 0RF propranolol 20 mg Tablet 20 mg PO BID 0RF fluticasone propionate 50 mcg/actuation spray,suspension 2 spray INTRANASAL DAILY 0RF dicyclomine 10 mg capsule 10 mg PO QID 0RF quetiapine 50 mg tablet extended release 24 hr 50 mg PO BEDTIME 0RF ondansetron HCl 4 mg tablet 4 mg PO Q8H PRN (Reason: Nausea And Vomiting) 0RF Sprintec (28) 0.25-35 mg-mcg Tablet 1 tab PO DAILY 0RF cetirizine [Zyrtec] 10 mg Tablet 10 mg PO DAILY 0RF Discharge Orders: Discharge Order (Routine); Ordered 03/29/22 Ordered By: Calderon Van Referrals: Nyla @ [facility] [Other] - 04/04/22 1:00 pm (Make sure that you schedule your next appointment when you are checking in so that you can keep you r appointments close. ) [facility] [Other] (Call this number to set up transportation to and from Doctors appointments. You will need to call 3 days prior to your appointment, so for your appointment on 04/04 you will need to call on Sunday 04/01 to set it up. You will need your Medicaid # when you call. ) Bridget Millan PA [Physician] - 04/02/22 1:45 pm (Follow up) Discharge Diet: Regular Discharge Activity: Resume usual activity Patient Instructions: Opioid Safety Discharge Attestations NPU Time Spent in Discharge Care*: less than 30 min Specific Discharge Activities: Specific discharge activities: educating pa tient, discussing with case folder/social workers/dc planners, documenting/other paperwork and evaluating patient/reviewing data Coding Level of Care Code Acute Chg FW DC note Diagnoses Suicidal ideation R45.851 Attention-deficit hyperactivity disorder, combined type F90.2 Asperger's syndrome F84.5
[2022-03-29 07:55] VITALS: BP 120/81; PULSE 87; RESP 16; TEMP 36.5; O2SAT 98
[2022-03-29] MEDS: lisinopril 10 mg Tablet PO (08:03)
[2022-03-29] MEDS: propranolol 20 mg Tablet PO (08:03)
[2022-03-29] MEDS: dicyclomine 10 mg Capsule PO (08:03)
[2022-03-29] MEDS: cetirizine 10 mg Tablet PO (08:03)
[2022-03-29 09:01] VITALS: BP 120/81; PULSE 87; RESP 16; TEMP 36.5; O2SAT 98
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
== END 2022-03-29 09:00 | disposition home or self-care (01) | DRG 881 ==
LOC: ER 19:30 → NP 20:03
PROVIDERS: Admitting Provider Psychiatry & Neurology Psychiatry; Emergency Provider Emergency Medicine; PCP Registered Nurse; Visit Provider Psychiatry & Neurology Psychiatry
DX: F32.A Depression, unspecified (principal); R45.851 Suicidal ideations; F84.5 Asperger's syndrome; F90.2 Attention-deficit hyperactivity disorder, combined type; F81.9 Developmental disorder of scholastic skills, unspecified
CPT/HCPCS: 80053; 80306; 80307; 81025; 84443; 85025; 97150; 97165; 99285

== ENCOUNTER → 2022-04-01 08:05 | Outpatient (BNVA) | payer MEDICAID, SELFPAY | PROVIDERS: PCP Registered Nurse; Visit Provider Nurse Practitioner | DX: F84.5 Asperger's syndrome (principal); R41.83 Borderline intellectual functioning; F31.9 Bipolar disorder, unspecified | CPT/HCPCS: 90792 ==

== ENCOUNTER → 2022-05-01 14:19 | Outpatient (BNVA) | payer MEDICAID, SELFPAY | PROVIDERS: PCP Physician Assistant; Visit Provider Nurse Practitioner | DX: F41.1 Generalized anxiety disorder (principal); F31.9 Bipolar disorder, unspecified; F84.5 Asperger's syndrome; R41.83 Borderline intellectual functioning | CPT/HCPCS: 99214 ==

== ENCOUNTER 2022-07-12 22:43 | Emergency (ER) | payer MEDICAID, SELFPAY ==
[2022-07-12 23:04] VITALS: BP 142/86; PULSE 89; RESP 14; TEMP 36.9; O2SAT 97; BMI 33.5
[2022-07-13 03:18] LABS: Basophils # 0.1 10^3/uL (0.0-0.1); Basophils % 0.9 %; Eosinophils # 0.3 10^3/uL (0.0-0.8); Eosinophils % 2.1 %; Hematocrit 42.6 % (37.0-47.0); Hemoglobin 14.2 g/dL (11.5-15.3); Lymphocytes # 4.7 10^3/uL (0.8-4.8); Lymphocytes % 36.3 %; Mean Corpuscular HGB Conc 33.3 g/dL (30.0-36.0); Mean Corpuscular Volume 87.1 fl (81-99); Mean Platelet Volume 9.5 fL (7.4-10.4); Monocytes # 1.3 10^3/uL (0.2-0.9); Monocytes % 9.7 %; Neutrophils # 6.57 10^3/uL (1.8-7.7); Neutrophils % 50.5 %; Nucleated Red Blood Cells % 0 %; Platelet Count 361 10^3/cmm (130-400); Red Blood Count 4.89 10^6/uL (4.1-5.3)
[2022-07-13 03:33] LABS: Add Urine Microscopic? NO; Charge for UA Resulting for Rev
[2022-07-13 03:35] LABS: Urine Appearance SL Hazy (CLEAR); Urine Color Yellow (Yellow)
[2022-07-13 03:36] LABS: Bilirubin Urine Neg (Negative); Blood Urine Neg (Negative); Glucose Urine UA Norm (Normal); Ketones Urine Negative (Negative); Leukocyte Esterase Urine Negative (Negative); Nitrate Urine Negative (Negative); Protein Urine Neg (Negative); Urobilinogen Urine Neg (Negative); pH Urine 6.5 (5-7)
[2022-07-13 03:42] LABS: Albumin Level 4.2 g/dL (3.5-5.2); Chloride 103 mmol/L (98-107); Potassium 3.9 mmol/L (3.5-5.1); Sodium 139 mmol/L (136-145)
[2022-07-13 03:54] LABS: Alanine Aminotransferase 64 U/L (0-33); Alkaline Phosphatase 156 U/L (35-105); Anion Gap 15.9 (5-19); Aspartate Amino Transferase 44 U/L (0-32); Blood Urea Nitrogen 5 mg/dL (6-20); C Reactive Protein 3.6 mg/L (0.0-4.9); Calcium 9.8 mg/dL (8.5-10.5); Carbon Dioxide 24 mmol/L (22-29); Globulin 2.5 g/dL (1.3-4.6); Glomerular Filtration Rate 197.8 mL/min (90-130); Glucose 160 mg/dL (65-115); Lipase 24 U/L (13-60); Osmolality Calculated 289 mOsm/kg (285-295); Total Bilirubin 0.2 mg/dL (0.15-1.2); Total Protein 6.7 g/dL (6.6-8.7)
--- NOTE | 2022-07-13 04:03 | ED_ITS ---
HPI - Abdominal Pain General: Chief Complaint: Abdominal Pain Stated Complaint: abd pain Time Seen by Provider: 07/13/22 01:31 History of Present Illness: 21-year-old female who complains of abdominal pain on and off for the last 8 months. She notes the pain was making it hard for her to sleep earlier in the evening. She has vomited a couple times in the last 24 hours. She has had loose stools on and off, but not recently. Her boyfriend notes that she has had some vaginal bleeding. She denies discharge otherwise. She does not know if she is . No documented fever MD elicited complaint: abdominal pain Pertinent past history: other Onset (ago): month(s) Pain Consistency: intermittent Location: RUQ and RLQ Quality: cramping and stabbing Exacerbating factors: vomiting and movement Relieving factors: nothing Associated Symptoms: Reports nausea, poor appetite and vomiting; Denies constipation, diarrhea, fever(s) and hematochezia Related Data: Date of Last Menstrual Period: 03/25/22 Review of Systems Const: Denies: fever(s) Card: Denies: chest pain Resp: Denies: dyspnea GI: Reports: nausea and vomiting; Denies: diarrhea, constipation or hematochezia : Denies: flank pain PFSH ED PFSH: Medical History Asperger's syndrome Attention-deficit hyperactivity disorder, combined type Borderline intellectual functioning Generalized anxiety disorder Major depression, recurrent Psychiatric care Family History Other Cancer Diabetes Heart disease Seizure Social History Smoking and tobacco status: current every day smoker e-cigarettes E-Cigarette Details: vaporizer device History of recent travel: No Female Reproductive History: Date of last menstrual period: 03/25/22 Physical Exam Const: COMMON NORMALS: no acute distress GENERAL APPEARANCE: comfortable; not ill appearing and not frail appearing HENMT: COMMON NORMALS: normocephalic and atraumatic HEAD & SCALP: normocephalic and atraumatic Eye: COMMON NORMALS: Equal, round and reactive pupils present and EOMs intact bilaterally PUPIL: Yes Equal, round and reactive pupils present Chest: CHEST: Yes Symmetrical chest wall rise Resp: COMMON NORMALS: normal respiratory effort, No use of accessory muscles and clear to auscultation bilaterally AUSCULTATION: clear to auscultation bilaterally Cardio: COMMON NORMALS: regular rate and regular rhythm RATE: regular rate RHYTHM: regular rhythm GI: COMMON NORMALS: Normal to inspection, nondistended, normoactive bowel sounds present and Soft to palpation PALPATION: Yes Soft to palpation and Yes Tenderness to palpation present (GI) (diffuse) : COMMON NORMALS: Yes no CVA tenderness BLADDER/KIDNEY EXAM: Yes no CVA tenderness Back/Pelvis: COMMON NORMALS: no CVA tenderness Neuro: ROD COMA SCALE: document GCS findings [place] coma scale eye opening: Spontaneous Rod coma scale verbal response: Orientated [place] coma scale motor response: Obey commands Rod coma scale total score: 15 Skin: COMMON NORMALS: no rashes or lesions noted GENERAL SKIN EXAM: no rashes or lesions noted Course Vital Signs: Vital signs: Vital Signs Temperature 98.5 F 07/12/22 23:04 Pulse Rate 83 07/13/22 04:43 Respiratory Rate 16 07/13/22 04:43 Blood Pressure 142/86 07/12/22 23:04 Pulse Oximetry 98 07/13/22 04:43 Oxygen Delivery Me thod 07/12/22 23:04 MDM - Abdominal Pain Medical Decision Making 21-year-old female with right-sided belly pain her white blood cell count is 13 with absolutely no shift. Her CRP is normal. Her BMP is essentially normal. Her liver enzymes show minimal elevation with an AST of 44 and ALT of 64. Alk phos is 156. Her bilirubin is normal. She in the past has had a negative gallbladder ultrasound, and a negative HIDA scan. She is not . Lab Data : 07/13/22 03:12 07/13/22 03:12 Labs/Radiology: Laboratory Results WBC 13.0 10^3/uL (4.0-10.0) H 07/13/22 03:12 RBC 4.89 10^6/uL (4.1-5.3) 07/13/22 03:12 Hgb 14.2 g/dL (11.5-15.3) 07/13/22 03:12 Hct 42.6 % (37.0-47.0) 07/13/22 03:12 MCV 87.1 fl (81-99) 07/13/22 03:12 MCH 29.0 pg (28.0-34.0) 07/13/22 03:12 MCHC 33.3 g/dL (30.0-36.0) 07/13/22 03:12 RDW 13.0 % (12.1-15.1) 07/13/22 03:12 Plt Count 361 10^3/cmm (130-400) 07/13/22 03:12 MPV 9.5 fL (7.4-10.4) 07/13/22 03:12 Neut % (Auto) 50.5 % 07/13/22 03:12 Lymph % (Auto) 36.3 % 07/13/22 03:12 [place] % (Auto) 9.7 % 07/13/22 03:12 Eos % (Auto) 2.1 % 07/13/22 03:12 Baso % (Auto) 0.9 % 07/13/22 03:12 Neut # (Auto) 6.57 10^3/uL (1.8-7.7) 07/13/22 03:12 Lymph # (Auto) 4.7 10^3/uL (0.8-4.8) 07/13/22 03:12 [place] # (Auto) 1.3 10^3/uL (0.2-0.9) H 07/13/22 03:12 Eos # (Auto) 0.3 10^3/uL (0.0-0.8) 07/13/22 03:12 Baso # (Auto) 0.1 10^3/uL (0.0-0.1) 07/13/22 03:12 Nucleated RBC % (auto) 0 % 07/13/22 03:12 Nucleated RBCs # 0.0 /100WBC 07/13/22 03:12 Sodium 139 mmol/L (136-145) 07/13/22 03:12 Potassium 3.9 mmol/L (3.5-5.1) 07/13/22 03:12 Chloride 103 mmol/L (98-107) 07/13/22 03:12 Carbon Dioxide 24 mmol/L (22-29) 07/13/22 03:12 Anion Gap 15.9 (5-19) 07/13/22 03:12 BUN 5 mg/dL (6-20) L 07/13/22 03:12 Creatinine 0.4 mg/dL (0.5-0.9) L 07/13/22 03:12 GFR Calculation 197.8 mL/min (90-130) H 07/13/22 03:12 Glucose 160 mg/dL (65-115) H 07/13/22 03:12 Calculated Osmolality 289 mOsm/kg (285-295) 07/13/22 03:12 Calcium 9.8 mg/dL (8.5-10.5) 07/13/22 03:12 Total Bilirubin 0.2 mg/dL (0.15-1.2) 07/13/22 03:12 AST 44 U/L (0-32) H 07/13/22 03:12 ALT 64 U/L (0-33) H 07/13/22 03:12 Alkaline Phosphatase 156 U/L (35-105) H 07/13/22 03:12 C-Reactive Protein 3.6 mg/L (0.0-4.9) 07/13/22 03:12 Total Protein 6.7 g/dL (6.6-8.7) 07/13/22 03:12 Albumin 4.2 g/dL (3.5-5.2) 07/13/22 03:12 Globulin 2.5 g/dL (1.3-4.6) 07/13/22 03:12 Lipase 24 U/L (13-60) 07/13/22 03:12 HCG, Qual Negative (Negative) 07/13/22 03:20 Urine Color Yellow (Yellow) 07/13/22 03:20 Urine Appearance Sl hazy (CLEAR) 07/13/22 03:20 Urine pH 6.5 (5-7) 07/13/22 03:20 Ur Specific [place] 1.020 (1.005-1.030) 07/13/22 03:20 Urine Protein Neg (Negative) 07/13/22 03:20 Urine Glucose (UA) Norm (Normal) 07/13/22 03:20 Urine Ketones Negative (Negative) 07/13/22 03:20 Urine Blood Neg (Negative) 07/13/22 03:20 Urine Nitrate Negative (Negative) 07/13/22 03:20 Urine Bilirubin Neg (Negative) 07/13/22 03:20 Urine Urobilinogen Neg mg/dL (Negative) 07/13/22 03:20 Ur Leukocyte Esterase Negative (Negative) 07/13/22 03:20 Discharge Plan Discharge Patient Disposition: Home Clinical Impression: Abdominal pain Condition: Stable Prescriptions: New ketorolac 10 mg tablet 10 mg PO TID PRN (Reason: pain) Qty: 10 0RF ondansetron 4 mg film 4 mg PO DAILY PRN (Reason: nausea and vomiting) Qty: 10 0RF No Action escitalopram oxalate 20 mg tablet 20 mg PO DAILY sertraline [Zoloft] 100 mg tablet 100 mg PO DAILY Qty: 30 1RF albuterol sulfate 90 mcg/actuation HFA aerosol inhaler 1 inh inhalation QID PRN (Reason: shortness of breath or wheezing) Qty: 6.7 0RF polyethylene glycol 3350 [Miralax] 17 gram Powder In Packet 17 g PO DAILY PRN (Reason: Constipation) vitamin E 1 tab PO DAILY Peppermint Pills 1 tab PO DAILY Rx Instructions: pt no longer taking to expensive albuterol sulfate 2.5 mg /3 mL (0.083 %) solution for nebulization 2.5 mg inhalation QID PRN (Reason: Shortness Of Breath) lisinopril 10 mg tablet 10 mg PO DAILY propranolol 20 mg Tablet 20 mg PO BID fluticasone propionate 50 mcg/actuation spray,suspension 2 spray INTRANASAL DAILY dicyclomine 10 mg capsule 10 mg PO QID Sprintec (28) 0.25-35 mg-mcg Tablet 1 tab PO DAILY cetirizine [Zyrtec] 10 mg Tablet 10 mg PO DAILY Discharge Orders: Discharge ED (Routine); Ordered 07/13/22 Ordered By: Vernon Wong Referrals: Bridget Millan PA [Primary Care Provider] - 1-3 days Discharge Diet: Advance as tolerated and Clear Liquid Discharge Activity: Increase activity as tolerated Patient Instructions: Abdominal Pain (ED) Activity Restrictions/Additional Instructions: Laboratory did not reveal a cause of your abdominal pain this evening. We encourage follow-up with your primary care physician, as further outpatient testing may be needed. Medication as directed. Take scheduled for the next 48 hours, then as needed. Return for fever greater than 100, vomiting liquids or medications despite treatment, any other concerning symptoms. Coding Level of Care Code ED Welding Machine Operator Ultrasonic for Chg Fwd Exam Comprehensive
[2022-07-13 04:19] LABS: HCG Qualitative Urine. Negative (Negative)
[2022-07-13 04:43] VITALS: PULSE 83; RESP 16; O2SAT 98
== END 2022-07-13 04:44 | disposition home or self-care (01) ==
PROVIDERS: Emergency Provider Emergency Medicine; PCP Physician Assistant
DX: R10.9 Unspecified abdominal pain (principal); F84.5 Asperger's syndrome; F17.290 Nicotine dependence, other tobacco product, uncomplicated
CPT/HCPCS: 80053; 81003; 81025; 83690; 85025; 86140; 87491; 87591; 99283

== ENCOUNTER 2022-07-19 22:27 | Emergency (ER) | payer MEDICAID, SELFPAY ==
[2022-07-19 22:30] VITALS: BP 152/92; PULSE 80; RESP 18; TEMP 37; O2SAT 98
--- NOTE | 2022-07-19 22:34 | ECG_ITS ---
[facility] Test Date: 2022-07-19 Pat Name: Ella Swain Department: Room: Gender: Female Clinical Appeals Auditor: : 2000 Requested By: Tim Prince Order Number: [id number] Angelic MD: Gulshan Ley M.D. Measurements Intervals [place] Rate: 79 P: -3 NM: 114 QRS: 40 QRSD: 82 T: 11 QT: 377 QTc: 433 Interpretive Statements SINUS RHYTHM WITH SHORT NM INTERVAL NONSPECIFIC T-WAVE ABNORMALITY Compared to ECG 06/23/2020 20:33:37 Short NM interval now present T-wave abnormality still present Electronically Signed On 07-20-2022 9:24:34 CDT by Gulshan Ley M.D. [email or web address]
--- NOTE | 2022-07-19 22:43 | ED_ITS ---
HPI - Chest Pain General: Chief Complaint: Chest Pain Stated Complaint: cp Time Seen by Provider: 07/19/22 22:29 History of Present Illness: 21-year-old female comes in today with some left anterior chest wall pain radiating to her mid sternum. Patient reports movement and activity worsens the pain. Patient appears nontoxic. Patient appears no acute distress. Patient appears in mild to moderate pain. Associated symptoms: Deny dyspnea, fever(s), nausea or vomiting Review of Systems Const: Denies: fever(s) Card: Reports: chest pain Resp: Denies: dyspnea GI: Denies: nausea or vomiting PFS ED PFSH: Medical History Asperger's syndrome Attention-deficit hyperactivity disorder, combined type Borderline intellectual functioning Generalized anxiety disorder Major depression, recurrent Psychiatric care Family History Other Cancer Diabetes Heart disease Seizure Social History Smoking and tobacco status: current every day smoker e-cigarettes E-Cigarette Details: vaporizer device History of recent travel: No Female Reproductive History: Date of last menstrual period: 06/20/22 Physical Exam Const: COMMON NORMALS: alert HENMT: COMMON NORMALS: normocephalic HEAD & SCALP: normocephalic Neck/C-Spine: COMMON NORMALS: full ROM Chest: CHEST: Yes tenderness (Left sternal costal margin and left lower anterior ribs) Resp: COMMON NORMALS: normal respiratory effort and clear to auscultation bilaterally AUSCULTATION: clear to auscultation bilaterally Cardio: COMMON NORMALS: regular rate, regular rhythm and No murmurs present (Cardio) RATE: regular rate RHYTHM: regular rhythm GI: COMMON NORMALS: Soft to palpation and non-tender PALPATION: Yes Soft to palpation Extremity: COMMON NORMALS: normal to inspection and no pedal edema Neuro: SENSORIUM/ORIENTATION: Yes alert Skin: COMMON NORMALS: turgor normal GENERAL SKIN EXAM: turgor normal Course Vital Signs: Vital signs: Vital Signs Temperature 98.6 F 07/19/22 22:30 Pulse Rate 80 07/19/22 22:30 Respiratory Rate 18 07/19/22 22:30 Blood Pressure 152/92 07/19/22 22:30 Pulse Oximetry 98 07/19/22 22:30 Oxygen Delivery Me thod 07/19/22 22:30 MDM - Chest Pain Medical Decision Making 21-year-old female comes in today with complaints of sternal chest pain. On exam patient is alert and oriented. Skin is warm and dry. Patient has chest wall tenderness to palpation of the left sternal costal margin and the left anterior lower ribs. Heart rates regular. Vital signs are unremarkable. Differential diagnosis includes but not limited to pneumonia, ACS, costochondritis, contusion. Chest x-ray was unremarkable. Laboratory values were normal except for some mild elevation in white count at 13,000. EKG was sinus rhythm. Troponin was 6. Patient had reproducible chest pain with palpation of the anterior chest wall. Believe patient probably has costochondritis. Reviewed exam with patient with recommendations for treatment and follow-up. Patient reported understanding. Lab Data : 07/19/22 22:38 07/19/22 22:38 Laboratory Results WBC 13.1 10^3/uL (4.0-10.0) H 07/19/22 22: RBC 4.76 10^6/uL (4.1-5.3) 07/19/22 22:38 Hgb 13.8 g/dL (11.5-15.3) 07/19/22: Hct 41.1 % (37.0-47.0) 07/19/22: MCV 86.3 fl (81-99) 07/19/22 22: MCH 29.0 pg (28.0-34.0) 07/19/22: MCHC 33.6 g/dL (30.0-36.0) 07/19/22 22: RDW 13.1 % (12.1-15.1) 07/19/22: Plt Count 338 10^3/cmm (130-400) 07/19/22: MPV 9.5 fL (7.4-10.4) 07/19/22 22: Neut % (Auto) 58.4 % 07/19/22 22: Lymph % (Auto) 28.4 % 07/19/22: [place] % (Auto) 9.0 % 08/26/22 22:38 Eos % (Auto) 3.0 % 07/19/22 22:38 Baso % (Auto) 0.8 % 07/19/22 22:38 Neut # (Auto) 7.64 10^3/uL (1.8-7.7) 07/19/22 22:38 Lymph # (Auto) 3.7 10^3/uL (0.8-4.8) 07/19/22 22:38 [place] # (Auto) 1.2 10^3/uL (0.2-0.9) H 07/19/22 22:38 Eos # (Auto) 0.4 10^3/uL (0.0-0.8) 07/19/22 22:38 Baso # (Auto) 0.1 10^3/uL (0.0-0.1) 07/19/22 22:38 Nucleated RBC % (auto) 0 % 07/19/22 22:38 Nucleated RBCs # 0.0 /100WBC 07/19/22 22:38 Sodium 142 mmol/L (136-145) 07/19/22 22:38 Potassium 4.0 mmol/L (3.5-5.1) 07/19/22 22:38 Chloride 105 mmol/L (98-107) 07/19/22 22:38 Carbon Dioxide 25 mmol/L (22-29) 07/19/22 22:38 Anion Gap 16.0 (5-19) 07/19/22 22:38 BUN 6 mg/dL (6-20) 07/19/22 22:38 Creatinine 0.6 mg/dL (0.5-0.9) 07/19/22 22:38 GFR Calculation 123.9 mL/min (90-130) 07/19/22 22:38 Glucose 112 mg/dL (65-115) 07/19/22 22:38 Calculated Osmolality 292 mOsm/kg (285-295) 07/19/22 22:38 Calcium 9.4 mg/dL (8.5-10.5) 07/19/22 22:38 Total Bilirubin 0.3 mg/dL (0.15-1.2) 07/19/22 22:38 AST 36 U/L (0-32) H 07/19/22 22:38 ALT 52 U/L (0-33) H 07/19/22 22:38 Alkaline Phosphatase 140 U/L (35-105) H 07/19/22 22:38 Troponin T Baseline 6 ng/L (0-10) 07/19/22 22:38 Total Protein 6.9 g/dL (6.6-8.7) 07/19/22 22:38 Albumin 4.2 g/dL (3.5-5.2) 07/19/22 22:38 Globulin 2.7 g/dL (1.3-4.6) 07/19/22 22:38 Discharge Plan Discharge Patient Disposition: Home Clinical Impression: Costalchondritis Condition: Stable Prescriptions: Continued ketorolac 10 mg tablet 10 mg PO TID PRN (Reason: pain) Qty: 12 0RF No Action escitalopram oxalate 20 mg tablet 20 mg PO DAILY sertraline [Zoloft] 100 mg tablet 100 mg PO DAILY Qty: 30 1RF albuterol sulfate 90 mcg/actuation HFA aerosol inhaler 1 inh inhalation QID PRN (Reason: shortness of breath or wheezing) Qty: 6.7 0RF polyethylene glycol 3350 [Miralax] 17 gram Powder In Packet 17 g PO DAILY PRN (Reason: Constipation) vitamin E 1 tab PO DAILY Peppermint Pills 1 tab PO DAILY Rx Instructions: pt no longer taking to expensive ondansetron 4 mg film 4 mg PO DAILY PRN (Reason: nausea and vomiting) Qty: 10 0RF albuterol sulfate 2.5 mg /3 mL (0.083 %) solution for nebulization 2.5 mg inhalation QID PRN (Reason: Shortness Of Breath) lisinopril 10 mg tablet 10 mg PO DAILY propranolol 20 mg Tablet 20 mg PO BID fluticasone propionate 50 mcg/actuation spray,suspension 2 spray INTRANASAL DAILY dicyclomine 10 mg capsule 10 mg PO QID Sprintec (28) 0.25-35 mg-mcg Tablet 1 tab PO DAILY cetirizine [Zyrtec] 10 mg Tablet 10 mg PO DAILY Discharge Orders: Discharge ED (Routine); Ordered 07/19/22 Ordered By: Tim Neves Referrals: Bridget Millan, PA [Primary Care Provider] - Discharge Diet: Usual diet Discharge Activity: Increase activity as tolerated Patient Instructions: Costochondritis (ED) Activity Restrictions/Additional Instructions: Activity as tolerated. Use ice or heat for further relief. Drink plenty of water with medication. Follow-up with primary care for recheck in 3 days. Return to ER for new concerns. Coding Level of Care Code ED Central Processing Tech for Sherice Jaramillo Exam Comprehensive
[2022-07-19 22:45] LABS: Basophils # 0.1 10^3/uL (0.0-0.1); Basophils % 0.8 %; Eosinophils # 0.4 10^3/uL (0.0-0.8); Hematocrit 41.1 % (37.0-47.0); Hemoglobin 13.8 g/dL (11.5-15.3); Lymphocytes # 3.7 10^3/uL (0.8-4.8); Lymphocytes % 28.4 %; Mean Corpuscular HGB Conc 33.6 g/dL (30.0-36.0); Mean Corpuscular Volume 86.3 fl (81-99); Mean Platelet Volume 9.5 fL (7.4-10.4); Monocytes # 1.2 10^3/uL (0.2-0.9); Neutrophils # 7.64 10^3/uL (1.8-7.7); Neutrophils % 58.4 %; Nucleated Red Blood Cells % 0 %; Platelet Count 338 10^3/cmm (130-400); Red Blood Count 4.76 10^6/uL (4.1-5.3); Red Cell Distribution Width 13.1 % (12.1-15.1); White Blood Count 13.1 10^3/uL (4.0-10.0)
[2022-07-19] MEDS: ketorolac 30 mg/mL INJ 15 MG IVP (23:05)
[2022-07-19 23:09] LABS: Alanine Aminotransferase 52 U/L (0-33); Albumin Level 4.2 g/dL (3.5-5.2); Alkaline Phosphatase 140 U/L (35-105); Aspartate Amino Transferase 36 U/L (0-32); Blood Urea Nitrogen 6 mg/dL (6-20); Calcium 9.4 mg/dL (8.5-10.5); Carbon Dioxide 25 mmol/L (22-29); Chloride 105 mmol/L (98-107); Creatinine Clr Calc Pharmacy 148.6492; Globulin 2.7 g/dL (1.3-4.6); Glomerular Filtration Rate 123.9 mL/min (90-130); Glucose 112 mg/dL (65-115); Osmolality Calculated 292 mOsm/kg (285-295); Sodium 142 mmol/L (136-145); Total Bilirubin 0.3 mg/dL (0.15-1.2); Total Protein 6.9 g/dL (6.6-8.7); Troponin(5th) Baseline 6 ng/L (0-10)
[2022-07-19 23:41] VITALS: PULSE 73; RESP 22; O2SAT 98
== END 2022-07-19 23:42 | disposition home or self-care (01) ==
PROVIDERS: Emergency Provider Nurse Practitioner Family; PCP Physician Assistant
DX: M94.0 Chondrocostal junction syndrome [Tietze] (principal); F84.5 Asperger's syndrome; F17.290 Nicotine dependence, other tobacco product, uncomplicated
CPT/HCPCS: 80053; 84484; 85025; 93005; 96374; 99285; J1885

== ENCOUNTER 2022-09-09 | Outpatient (CLI) | payer MEDICAID, SELFPAY | END 2022-09-09 23:00 | disposition home or self-care (01) | LOC: RAD 09-16 09:33 | PROVIDERS: PCP Physician Assistant; Visit Provider Registered Nurse | DX: R30.0 Dysuria (principal); R11.10 Vomiting, unspecified | CPT/HCPCS: 81000; 81025 ==

== ENCOUNTER 2022-09-09 18:25 | Observation (INO) | payer MEDICAID, SELFPAY ==
[2022-09-09 18:55] VITALS: BP 124/79; PULSE 96; RESP 18; TEMP 37.2; O2SAT 95; BMI 31.7
[2022-09-09 19:58] LABS: Basophils # 0.1 10^3/uL (0.0-0.1); Basophils % 0.4 %; Eosinophils # 0.1 10^3/uL (0.0-0.8); Eosinophils % 0.3 %; Hematocrit 43.2 % (37.0-47.0); Hemoglobin 14.2 g/dL (11.5-15.3); Lymphocytes # 2.4 10^3/uL (0.8-4.8); Lymphocytes % 13.5 %; Mean Corpuscular HGB Conc 32.9 g/dL (30.0-36.0); Mean Corpuscular Hemoglobin 28.7 pg (28.0-34.0); Mean Corpuscular Volume 87.4 fl (81-99); Mean Platelet Volume 9.4 fL (7.4-10.4); Monocytes # 2.2 10^3/uL (0.2-0.9); Monocytes % 12.4 %; Neutrophils # 13.04 10^3/uL (1.8-7.7); Neutrophils % 72.5 %; Nucleated Red Blood Cells % 0 %; Platelet Count 320 10^3/cmm (130-400); Red Blood Count 4.94 10^6/uL (4.1-5.3); Red Cell Distribution Width 13.4 % (12.1-15.1)
[2022-09-09 20:07] LABS: Alanine Aminotransferase 30 U/L (0-33); Alkaline Phosphatase 130 U/L (35-105); Anion Gap 17.3 (5-19); Aspartate Amino Transferase 23 U/L (0-32); Blood Urea Nitrogen 8 mg/dL (6-20); Calcium 9.8 mg/dL (8.5-10.5); Carbon Dioxide 25 mmol/L (22-29); Chloride 95 mmol/L (98-107); Globulin 4.4 g/dL (1.3-4.6); Glomerular Filtration Rate 88.9 mL/min (90-130); Glucose 92 mg/dL (65-115); Lipase 12 U/L (13-60); Osmolality Calculated 276 mOsm/kg (285-295); Potassium 3.3 mmol/L (3.5-5.1); Sodium 134 mmol/L (136-145); Total Bilirubin 0.7 mg/dL (0.15-1.2); Total Protein 8.4 g/dL (6.6-8.7)
[2022-09-09 21:13] LABS: HCG Qualitative Urine. Negative (Negative)
[2022-09-09 21:16] VITALS: BP 155/96; PULSE 107; RESP 16; O2SAT 98
--- NOTE | 2022-09-09 21:19 | CTR_ITS ---
PROCEDURE INFORMATION: Exam: CT Abdomen And Pelvis Without Contrast Exam date and time: 09/09/2022 10:00 PM Age: 21 years old Clinical indication: Abdominal pain; Localized; Right; Patient HX: C/O ruq/ RT flank pain. Elevated wbc. ; Additional info: Abd pain TECHNIQUE: Imaging protocol: Computed tomography of the abdomen and pelvis without contrast. Radiation optimization: All CT scans at this facility use at least one of these dose optimization techniques: automated exposure control; mA and/or kV adjustment per patient size (includes targeted exams where dose is matched to clinical indication); or iterative reconstruction. COMPARISON: CT abdomen pelvis w con* [id number] 10/07/2019 2:50 PM RADIATION DOSE METRICS: Total DLP (mGy-cm): 793.81 FINDINGS: Liver: Normal. No mass. Gallbladder and bile ducts: Normal. No calcified stones. No ductal dilation. Pancreas: Normal. No ductal dilation. Spleen: Normal. No splenomegaly. Adrenal glands: Normal. No mass. Kidneys and ureters: There is some inflammation around the right ureter and slightly prominent renal calices, unclear if this is secondary to the adjacent inflammation or may reflect a recently passed stone which is not seen on exam. Negative for hydronephrosis. No renal stones. Stomach and bowel: There is some focal inflammation adjacent to the inferior pole the right kidney and ascending colon. The suspected source is a rounded fat containing structure adjacent to the colon suspected to reflect a torsed epiploic appendage. No obstruction. No mucosal thickening. Appendix: Appendix is normal caliber and unremarkable in appearance. Intraperitoneal space: Unremarkable. No free air. No significant fluid collection. Vasculature: Unremarkable. No abdominal aortic aneurysm. Lymph nodes: Unremarkable. No enlarged lymph nodes. Urinary bladder: Unremarkable as visualized. Reproductive: Unremarkable as visualized. Bones/joints: No acute fracture. Soft tissues: Unremarkable. CT/CT abdomen pelvis wo con [id number] IMPRESSION: Focal inflammation in the right lower abdomen suspected to reflect epiploic appendagitis or possibly a recently passed right renal stone. Negative for acute appendicitis.
--- NOTE | 2022-09-09 21:22 | ED_ITS ---
HPI - Back Pain/Injury General: Chief Complaint: Back Pain/Injury Stated Complaint: N/V Time Seen by Provider: 09/09/22 21:15 Source: patient Mode of arrival: ambulatory Limitations: no limitations History of Present Illness: 21-year-old female who states that over the last 2 days she has been having chills low-grade fevers body aches along with right- sided flank pain she was seen at [place] had hematuria and was sent here for CT scan but arrived too late and checked in the ER because she is feeling worse states her pain is a 6 out of 10 she had some nausea as well. She denies any diarrhea denies any vaginal discharge. She denies any worsening proving factors. Associated symptoms: Reports abdominal pain, chills and fatigue; Deny dysuria Review of Systems Const: Reports: chills and fatigue Eyes: Denies: blurry vision or eye discomfort ENMT: Denies: throat pain or dental pain Card: Denies: chest pain Resp: Denies: dyspnea GI: Reports: abdominal pain : Denies: dysuria Musc: Denies: neck pain or back pain Skin/Breast: Denies: rash Neuro: Denies: headache(s) Psych: Denies: depression Jose/Lymph: Denies: easy bruising All/Imm: Denies: urticaria PFSH ED PFSH: Medical History Asperger's syndrome Attention-deficit hyperactivity disorder, combined type Borderline intellectual functioning Generalized anxiety disorder Major depression, recurrent Psychiatric care Family History Other Cancer Diabetes Heart disease Seizure Social History Smoking and tobacco status: never smoked History of recent travel: No Female Reproductive History: Date of last menstrual period: 08/20/22 Physical Exam Const: COMMON NORMALS: no acute distress, patient oriented x3 and healthy appearing HENMT: COMMON NORMALS: normocephalic and atraumatic HEAD & SCALP: normocep halic and atraumatic Eye: COMMON NORMALS: Equal, round and reactive pupils present and EOMs intact bilaterally PUPIL: Yes Equal, round and reactive pupils present Neck/C-Spine: COMMON NORMALS: full ROM and supple Chest: COMMONS NORMALS: normal inspection of the chest and normal palpation of entire chest wall Resp: COMMON NORMALS: normal respiratory effort, No retractions, No use of accessory muscles and clear to auscultation bilaterally AUSCULTATION: clear to auscultation bilaterally Cardio: COMMON NORMALS: regular rate, regular rhythm and No murmurs present (Cardio) RATE: regular rate RHYTHM: regular rhythm GI: COMMON NORMALS: Normal to inspection, nondistended, normoactive bowel sounds present, Soft to palpation, non-tender and no masses PALPATION: Yes Soft to palpation Extremity: COMMON NORMALS: normal to inspection and full ROM Neuro: COMMON NORMALS: patient oriented x3, moves all extremities and no focal motor deficits Psych: COMMON NORMALS: mental status grossly normal, Normal thought process present and cooperative THOUGHT PROCESS: Normal thought process present Skin: COMMON NORMALS: no rashes or lesions noted and no wounds GENERAL SKIN EXAM: no rashes or lesions noted Course Vital Signs: Vital signs: Vital Signs Temperature 98.9 F 09/09/22 18:55 Pulse Rate 121 H 09/10/22 00:49 Respiratory Rate 16 09/10/22 00:49 Blood Pressure 120/63 09/10/22 00:49 Pulse Oximetry 92 09/10/22 00:49 Oxygen Delivery Me thod 09/09/22 18:55 MDM - Back Pain/Injury Medical Decision Making Patient presents with acute cystitis along with possible pyelonephritis along with intractable vomiting she is not been able to tolerate p.o. here does have an elevated white count CT showed no kidney stone we will start on IV antibiotics IV fluid hydration admit to the hospitalist Dr. Rhodes. Labs : 09/09/22 19:22 09/09/22 19:22 Radiology Impressions Abdomen/Pelvis CT 09/09/22 21:19 IMPRESSION: Focal inflammation in the right lower abdomen suspected to reflect epiploic appendagitis or possibly a recently passed right renal stone. Negative for acute appendicitis. Laboratory Results WBC 18.0 10^3/uL (4.0-10.0) H 09/09/22 19:22 RBC 4.94 10^6/uL (4.1-5.3) 09/09/22 19:22 Hgb 14.2 g/dL (11.5-15.3) 09/09/22 19:22 Hct 43.2 % (37.0-47.0) 09/09/22 19: MCV 87.4 fl (81-99) 09/09/22 19: MCH 28.7 pg (28.0-34.0) 09/09/22 19: MCHC 32.9 g/dL (30.0-36.0) 09/09/22: RDW 13.4 % (12.1-15.1) 09/09/22: Plt Count 320 10^3/cmm (130-400) 09/09/22 19: MPV 9.4 fL (7.4-10.4) 09/09/22: Neut % (Auto) 72.5 % 09/09/22: Lymph % (Auto) 13.5 % 09/09/22: [place] % (Auto) 12.4 % 09/09/22: Eos % (Auto) 0.3 % 09/09/22: Baso % (Auto) 0.4 % 09/09/22: Neut # (Auto) 13.04 10^3/uL (1.8-7.7) H 09/09/22: Lymph # (Auto) 2.4 10^3/uL (0.8-4.8) 09/09/22: [place] # (Auto) 2.2 10^3/uL (0.2-0.9) H 09/09/22: Eos # (Auto) 0.1 10^3/uL (0.0-0.8) 09/09/22: Baso # (Auto) 0.1 10^3/uL (0.0-0.1) 09/09/22: Nucleated RBC % (auto) 0 % 09/09/22: Nucleated RBCs # 0.0 /100WBC 09/09/22 19: Sodium 134 mmol/L (136-145) L 09/09/22 19: Potassium 3.3 mmol/L (3.5-5.1) L 09/09/22 19: Chloride 95 mmol/L (98-107) L 09/09/22 19: Carbon Dioxide 25 mmol/L (22-29) 09/09/22: Anion Gap 17.3 (5-19) 09/09/22 19: BUN 8 mg/dL (6-20) 09/09/22 19: Creatinine 0.8 mg/dL (0.5-0.9) 09/09/22 19:22 GFR Calculation 88.9 mL/min (90-130) L 09/09/22 19: Glucose 92 mg/dL (65-115) 09/09/22 19: Calculated Osmolality 276 mOsm/kg (285-295) L 09/09/22 19: Calcium 9.8 mg/dL (8.5-10.5) 09/09/22: Total Bilirubin 0.7 mg/dL (0.15-1.2) 09/09/22 19: AST 23 U/L (0-32) 09/09/22 19: ALT 30 U/L (0-33) 09/09/22 19: Alkaline Phosphatase 130 U/L (35-105) H 09/09/22 19: Total Protein 8.4 g/dL (6.6-8.7) 09/09/22 19: Albumin 4.0 g/dL (3.5-5.2) 09/09/22 19: Globulin 4.4 g/dL (1.3-4.6) 09/09/22 19: Lipase 12 U/L (13-60) L 09/09/22 19:22 HCG, Qual Negative (Negative) 09/09/22 20:55 Urine Color Yellow (Yellow) 09/09/22 21:09 Urine Appearance Sl hazy (CLEAR) A 09/09/22 21:09 Urine pH 5 (5-7) 09/09/22 21:09 Ur Specific [place] 1.020 (1.005-1.030) 09/09/22 21:09 Urine Protein 3+ (Negative) H 09/09/22 21:09 Urine Glucose (UA) Norm (Normal) 09/09/22 21:09 Urine Ketones 1+ (Negative) H 09/09/22 21:09 Urine Blood 2+ (Negative) H 09/09/22 21:09 Urine Nitrate Negative (Negative) 09/09/22 21:09 Urine Bilirubin 1+ (Negative) H 09/09/22 21:09 Urine Urobilinogen 8 mg/dL (Negative) H 09/09/22 21:09 Ur Leukocyte Esterase 2+ (Negative) H 09/09/22 21:09 Urine RBC 5-10 /hpf (0-2) H 09/09/22 21:09 Urine WBC Too numerous to cnt /hpf (0-5) H 09/09/22 21:09 Ur Squamous Epith Cells 0-4 /hpf (0-5) H 09/09/22 21:09 Amorphous Sediment Not Reportable 09/09/22 21:09 Urine Bacteria 4+ /hpf (NONE) H 09/09/22 21:09 SARS-CoV-2 Ag (Rapid) negative (Negative) 09/09/22 21:57 Discharge Plan Discharge Patient Disposition: Admitted As Inpatient Clinical Impression: Acute cystitis, Intractable vomiting Condition: Stable Coding Level of Care Code ED Mason Liner for Sherice Fwd Exam Comprehensive
[2022-09-09 21:29] LABS: Protein Urine 3+ (Negative); Urine Appearance SL Hazy (CLEAR); Urine Color Yellow (Yellow); pH Urine 5 (5-7)
[2022-09-09 21:30] LABS: Add Urine Microscopic? YES; Bilirubin Urine 1+ (Negative); Blood Urine 2+ (Negative); Glucose Urine UA Norm (Normal); Ketones Urine 1+ (Negative); Leukocyte Esterase Urine 2+ (Negative); Nitrate Urine Negative (Negative); Urobilinogen Urine 8 mg/dL (Negative)
[2022-09-09 21:40] LABS: Add Urine Culture? Yes; Bacteria Urine 4+ /hpf; Squamous Epithelial Cell Urine 0-4 /hpf (0-5); WBC Urine TOO NUMEROUS TO CNT /hpf (0-5)
[2022-09-09] MEDS: ondansetron 2 mg/ML SDV 2 mL 4 MG IVP (21:54)
[2022-09-09] MEDS: sodium chloride 0.9% 1,000 ML 999 ML IV (21:54)
[2022-09-09 21:55] VITALS: RESP 20
[2022-09-09] MEDS: HYDROmorphone 1 mg/mL INJ 1 mL 0.5 MG IVP (21:55)
[2022-09-09 22:20] LABS: SARS Covid-2 Antigen negative (Negative)
[2022-09-09] MEDS: cefTRIAXone 1,000 MG in sodium chloride 0.9% (plus) 50 ML 100 MG IV (22:45)
[2022-09-09 22:47] VITALS: BP 131/79; PULSE 105; RESP 16; O2SAT 95
[2022-09-09 23:38] VITALS: BP 129/94; PULSE 113; RESP 18; O2SAT 95
[2022-09-10] VITALS (8 sets, daily range): BP systolic 107–160; BP diastolic 63–94; PULSE 84–133; RESP 16–18; TEMP 36.6–37.7; O2SAT 90–96
[2022-09-10] MEDS: ondansetron 2 mg/ML SDV 2 mL 4 MG IVP (00:46)
[2022-09-10] MEDS: HYDROmorphone 1 mg/mL INJ 1 mL 0.5 MG IVP (00:47)
--- NOTE | 2022-09-10 01:09 | PC.NURSE ---
pt oxygen saturation in high 80s after Dilaudid administration, put pt on 2L NC
--- NOTE | 2022-09-10 01:53 | PC.NURSE ---
Gave pt report to Bibiana Horton
[2022-09-10] MEDS: ketorolac 30 mg/mL INJ 15 MG IVP (04:57)
[2022-09-10] MEDS: sodium chlor 0.9% + KCl 20 mEq 20 MEQ/1,000 ML BAG 100 MEQ IV (05:01)
[2022-09-10] MEDS: acetaminophen 325 mg Tablet 650 MG PO ×2 (05:08→11:04)
--- NOTE | 2022-09-10 06:47 | PM.HP ---
Providers/Chief Complaint Admitting Physician: Maria Eugenia Rhodes MD Primary Care Provider: Bridget Millan Chief Complaint: N/V History of Present Illness Ella Swain is a 21 year old female with Asperger's, ADHD, generalized anxiety presented to the emergency room with 4 to 5 days of fever, vomiting, right flank pain and dysuria. She has had intractable nausea and vomiting. She visited with her primary care provider, was suspected to have appendicitis and sent to the ER for CAT scan. CT was negative for appendicitis, however showed possibility of epiploic appendagitis or possibly a recently passed right renal stone. Review of Systems General: Reports: 10 or more systems reviewed and unremarkable except in HPI and below Const: Reports: fever(s) and chills; Denies: body aches Eyes: Denies: change in vision, blurry vision or photophobia ENMT: Reports: hoarseness; Denies: throat pain, enlarged tonsils, odynophagia or nasal congestion Card: Denies: chest pain, palpitations, irregular heart rhythm, edema, swelling of feet/ankles, lightheadedness, pre-syncope, dyspnea on exertion or orthopnea Resp: Denies: dyspnea, productive cough, non-productive cough, wheezing, stridor, pain on inspiration, change in phlegm color, hemoptysis or chest congestion GI: Denies: abdominal pain, nausea, vomiting, hematemesis, coffee ground emesis, dysphagia, heartburn, diarrhea, constipation, GI cramping, change in stool character, hematochezia or melena : Denies: flank pain, difficulty voiding, dysuria, urinary frequency, urinary urgency, urinary hesitancy or hematuria Musc: Denies: neck pain, back pain, extremity pain, joint swelling, joint warmth or deformity Neuro: Denies: headache(s), numbness in extremities, weakness in extremities, sensory changes, difficulty walking, frequent falls, dizziness, vertigo, behavioral changes, Slurred speech present or seizure-like activity Psych: Denies: anxiety, depression, suicidal ideation or homicidal ideation Endo: Denies: polyuria, polydipsia, tired all the time, cold intolerance or hot flashes Jose/Lymph: Denies: easy bruising or easy bleeding Medications/Allergies Home Medications Medication Instructions Recorded Confirmed Last Taken Type albuterol sulfate 90 mcg/actuation 1 inh inhalation QID PRN shortness 10/27/20 09/10/22 09/09/22 09:00 Rx aerosol inhaler of breath or wheezing #6.7 grams polyethylene glycol 3350 17 gram 17 g PO DAILY PRN Constipation 03/21/21 09/10/22 03/21/21 History oral powder packet (Miralax) vitamin E 1 tab PO DAILY 03/21/21 09/10/22 03/21/21 History albuterol sulfate 2.5 mg/3 mL 2.5 mg inhalation QID PRN 03/26/22 09/10/22 Unknown History (0.083 %) solution for nebulization Shortness Of Breath cetirizine 10 mg tablet (Zyrtec) 10 mg PO DAILY 03/26/22 09/10/22 09/09/22 09:00 History dicyclomine 10 mg capsule 10 mg PO QID PRN Pain 03/26/22 09/10/22 09/09/22 08:00 History fluticasone propionate 50 2 spray intranasal DAILY 03/26/22 09/10/22 09/09/22 09:00 History mcg/actuation nasal spray,suspension lisinopril 10 mg tablet 10 mg PO DAILY 03/26/22 09/09/22 03/25/22 History norgestimate 0.25 mg-ethinyl 1 tab PO DAILY 03/26/22 09/10/22 09/09/22 09:00 History estradiol 35 mcg tablet (Sprintec (28)) propranolol 20 mg tablet 20 mg PO BID 03/26/22 09/09/22 Unknown History Peppermint Pills 1 tab PO DAILY 04/01/22 09/09/22 Unknown History escitalopram oxalate 20 mg tablet 20 mg PO DAILY 05/01/22 09/09/22 Unknown History ondansetron 4 mg oral soluble film 4 mg PO DAILY PRN nausea and 07/13/22 09/09/22 Unknown Rx vomiting #10 ea ketorolac 10 mg tablet 10 mg PO TID PRN pain #12 tabs 07/19/22 09/10/22 09/09/22 09:00 Rx sertraline 100 mg tablet (Zoloft) 100 mg PO DAILY #30 tabs 08/05/22 09/10/22 09/09/22 21:00 Rx ciprofloxacin HCl 500 mg tablet 500 mg PO BID 7 days #14 tabs 09/09/22 09/09/22 Unknown Rx (Cipro) loperamide 2 mg capsule 2 mg PO QID PRN Diarrhea 09/10/22 09/10/22 09/09/22 09:00 History Allergies Allergy/AdvReac Type Severity Reaction Status Date / Time codeine Allergy nausea Verified 09/09/22 15:11 gluten Allergy swellin, Verified 09/09/22 15:11 cranky, stomach pains, diarrhea PFSH Acute PFSH: Medical History Asperger's syndrome Attention-deficit hyperactivity disorder, combined type Borderline intellectual functioning Generalized anxiety disorder Major depression, recurrent Psychiatric care Family History Other Cancer Diabetes Heart disease Seizure Social History Smoking and tobacco status: never smoked History of recent travel: No Female Reproductive History: Date of last menstrual period: 08/20/22 Vitals/I&O/Wt Last Vital Signs Temp 99.8 F H 09/10/22 04:00 Pulse 133 H 09/10/22 04:00 Resp 17 09/10/22 04:00 BP 124/74 09/10/22 04:00 Pulse Ox 90 09/10/22 04:00 O2 Del Method 09/10/22 02:28 O2 Flow Rate 2 09/10/22 01:43 09/09/22 09/09/22 09/10/22 14:59 22:59 06:59 Intake Total 1530 / 1530 Balance 1530 / 1530 Weight last 48 hrs Weight 83.915 kg Physical Exam Narrative: General: No acute distress, AO x3 HEENT: PERRLA, pupils bilaterally equal and reactive, pallors not present Chest: Normal vesicular breath sounds, no added sounds, equal good air entry bilaterally CVS: S1-S2 regular, no murmurs, no tachycardia, no gallops, no rubs Abdomen: TTP right flank Neuro: No focal deficits, no facial deformity, AO x3, power 5/5 in all limbs Data : 09/09/22 19:22 09/09/22 19:22 A&P Assessment and plan (1) Intractable vomiting: (2) Epiploic appendagitis: (3) Pyelonephritis: Plan 21-year-old female presenting with complaints of nausea vomiting flank pain with CT evidence of possible epiploic appendagitis versus recently passed stone/pyelonephritis. With admit to [facility] Ceftriaxone 1 g IV every 24 hours empirically. Currently with intractable nausea and vomiting, as needed Zofran for symptomatic control. Unable to keep p.o. medications in at this time. As needed Dilaudid and Toradol alternating for pain management. Attestations Medical Necessity Statement*: Anticipate greater than 2 midnight admission for IV antibiotics, IV hydration, pain management Coding Level of Care Code Acute Software Engineering Supervisor for [facility] Diagnoses Intractable vomiting R11.10 Epiploic appendagitis K63.89 Pyelonephritis N12
[2022-09-10] MEDS: pantoprazole DR 40 mg Tablet PO (08:03)
--- NOTE | 2022-09-10 09:41 | PC.PHAR ---
pt and pts family states the pt takes care of her own medications-pt states she takes whatever [facility] fills-pt states she takes ibuprofen otc prn-lexapro 20mg daily last filled 02/03/22 30d/s rx has refills-lisinopril 10mg daily filled 02/20/22 30ds rx has refills-propranolol 20mg bid filled 02/03/22 30d/s rx has refills-pharmacy states when last filled in january 2022 pt stated she didnt need the lexapro,lisinopril or propranolol-
--- NOTE | 2022-09-10 09:52 | PM.DCS ---
Discharge Providers Date of Admission: 09/10/22 01:54 Date of Discharge: September 10, 2022 Attending Provider at Admission: Maria Eugenia Rhodes MD Attending Provider at Discharge: Buzz Dunne MD Primary Care Provider: Bridget Millan Diagnoses at Discharge Discharge Diagnosis (1) Intractable vomiting: Status: Acute (2) Epiploic appendagitis: Status: Acute (3) Pyelonephritis: Status: Acute Reason for Visit Reason for Visit: N/V Hospital Course Hospital Course 21-year-old female who was admitted because of her recurrent nausea vomiting right flank pain and dysuria initially she was started on ceftriaxone for concern of pyelonephritis patient passed stone and her symptoms resolved she is not actively vomiting she wants to go home I will give her 10 days of antibiotics along with antiemetics. I will also give her some opioids along bowel regimen. Conservative management is recommended for epiploic appendagitis Physical Exam Narrative: Alert Pleasant cooperative Currently on room air Hemodynamic stable No active emesis Nonfocal neuro exam Discharge Data Studies Completed and Pending Completed Studies During Hospitalization Category Date Time Status CT abdomen pelvis wo con [id number] Stat Cat Scan 09/09/22 21:19 Completed Pending at discharge Category Date Time Status Blood Culture Stat Lab 09/10/22 07:03 Results CMP [Comprehensive Metabolic Panel] AM LABS Lab 09/11/22 04:00 Ordered Chlamydia / Gonorrhea Panel Routine Lab 09/10/22 Received Complete Blood Count w/Auto AM LABS Lab 09/11/22 04:00 Ordered Radiology Impressions Abdomen/Pelvis CT 09/09/22 21:19 IMPRESSION: Focal inflammation in the right lower abdomen suspected to reflect epiploic appendagitis or possibly a recently passed right renal stone. Negative for acute appendicitis. Laboratory Results WBC 18.0 10^3/uL (4.0-10.0) H 09/09/22 19: RBC 4.94 10^6/uL (4.1-5.3) 09/09/22 19: Hgb 14.2 g/dL (11.5-15.3) 09/09/22 19: Hct 43.2 % (37.0-47.0) 09/09/22 19: MCV 87.4 fl (81-99) 09/09/22 19: MCH 28.7 pg (28.0-34.0) 09/09/22 19:22 MCHC 32.9 g/dL (30.0-36.0) 09/09/22: RDW 13.4 % (12.1-15.1) 09/09/22 19: Plt Count 320 10^3/cmm (130-400) 09/09/22 19: MPV 9.4 fL (7.4-10.4) 09/09/22: Neut % (Auto) 72.5 % 09/09/22: Lymph % (Auto) 13.5 % 09/09/22: [place] % (Auto) 12.4 % 09/09/22 19: Eos % (Auto) 0.3 % 09/09/22: Baso % (Auto) 0.4 % 09/09/22: Neut # (Auto) 13.04 10^3/uL (1.8-7.7) H 09/09/22: Lymph # (Auto) 2.4 10^3/uL (0.8-4.8) 09/09/22: [place] # (Auto) 2.2 10^3/uL (0.2-0.9) H 09/09/22: Eos # (Auto) 0.1 10^3/uL (0.0-0.8) 09/09/22: Baso # (Auto) 0.1 10^3/uL (0.0-0.1) 09/09/22: Nucleated RBC % (auto) 0 % 09/09/22: Nucleated RBCs # 0.0 /100WBC 09/09/22 19: Sodium 134 mmol/L (136-145) L 09/09/22 19: Potassium 3.3 mmol/L (3.5-5.1) L 09/09/22 19: Chloride 95 mmol/L (98-107) L 09/09/22 19: Carbon Dioxide 25 mmol/L (22-29) 09/09/22 19: Anion Gap 17.3 (5-19) 09/09/22 19: BUN 8 mg/dL (6-20) 09/09/22 19: Creatinine 0.8 mg/dL (0.5-0.9) 09/09/22 19: GFR Calculation 88.9 mL/min (90-130) L 09/09/22 19: Glucose 92 mg/dL (65-115) 09/09/22 19: Calculated Osmolality 276 mOsm/kg (285-295) L 09/09/22 19: Calcium 9.8 mg/dL (8.5-10.5) 09/09/22: Total Bilirubin 0.7 mg/dL (0.15-1.2) 09/09/22 19: AST 23 U/L (0-32) 09/09/22 19: ALT 30 U/L (0-33) 09/09/22: Alkaline Phosphatase 130 U/L (35-105) H 09/09/22 19: Total Protein 8.4 g/dL (6.6-8.7) 09/09/22 19: Albumin 4.0 g/dL (3.5-5.2) 09/09/22: Globulin 4.4 g/dL (1.3-4.6) 09/09/22 19: Lipase 12 U/L (13-60) L 09/09/22 19: HCG, Qual Negative (Negative) 09/09/22 20:55 Urine Color Yellow (Yellow) 09/09/22 21:09 Urine Appearance Sl hazy (CLEAR) A 09/09/22 21:09 Urine pH 5 (5-7) 09/09/22 21:09 Ur Specific [place] 1.020 (1.005-1.030) 09/09/22 21:09 Urine Protein 3+ (Negative) H 09/09/22 21:09 Urine Glucose (UA) Norm (Normal) 09/09/22 21:09 Urine Ketones 1+ (Negative) H 09/09/22 21:09 Urine Blood 2+ (Negative) H 09/09/22 21:09 Urine Nitrate Negative (Negative) 09/09/22 21:09 Urine Bilirubin 1+ (Negative) H 09/09/22 21:09 Urine Urobilinogen 8 mg/dL (Negative) H 09/09/22 21:09 Ur Leukocyte Esterase 2+ (Negative) H 09/09/22 21:09 Urine RBC 5-10 /hpf (0-2) H 09/09/22 21:09 Urine WBC Too numerous to cnt /hpf (0-5) H 09/09/22 21:09 Ur Squamous Epith Cells 0-4 /hpf (0-5) H 09/09/22 21:09 Amorphous Sediment Not Reportable 09/09/22 21:09 Urine Bacteria 4+ /hpf (NONE) H 09/09/22 21:09 SARS-CoV-2 Ag (Rapid) negative (Negative) 09/09/22 21:57 Vitals Last Vital Signs Temp 97.9 F 09/10/22 07:28 Pulse 87 09/10/22 07:28 Resp 16 09/10/22 07:28 BP 107/70 09/10/22 07:28 Pulse Ox 94 09/10/22 07:28 O2 Del Method 09/10/22 07:28 O2 Flow Rate 2 09/10/22 01:43 Discharge Plan Discharge Patient Disposition: Home Condition: Stable Prescriptions: New tramadol-acetaminophen 37.5-325 mg tablet 1 tab PO DAILY PRN (Reason: pain) 5 Days Qty: 5 0RF levofloxacin 750 mg tablet 750 mg PO DAILY 10 Days Qty: 10 0RF ondansetron HCl 4 mg tablet 4 mg PO DAILY 3 Days Qty: 10 0RF Continued sertraline [Zoloft] 100 mg tablet 100 mg PO DAILY Qty: 30 1RF albuterol sulfate 90 mcg/actuation HFA aerosol inhaler 1 inh inhalation QID PRN (Reason: shortness of breath or wheezing) Qty: 6.7 0RF polyethylene glycol 3350 [Miralax] 17 gram Powder In Packet 17 g PO DAILY PRN (Reason: Constipation) albuterol sulfate 2.5 mg /3 mL (0.083 %) solution for nebulization 2.5 mg inhalation QID PRN (Reason: Shortness Of Breath) norgestimate-ethinyl estradiol [Sprintec (28)] 0.25-35 mg-mcg Tablet 1 tab PO DAILY cetirizine [Zyrtec] 10 mg Tablet 10 mg PO DAILY PRN (Reason: Allergy Symptoms) loperamide 2 mg capsule 2 mg PO QID PRN (Reason: Diarrhea) dicyclomine 20 mg tablet 20 mg PO QID PRN (Reason: Abdominal Pain) ibuprofen 200 mg Tablet 200 mg PO Q6H PRN (Reason: Pain) ipratropium bromide 42 mcg (0.06 %) spray,non-aerosol 2 spray INTRANASAL TID Discontinued ciprofloxacin HCl [Cipro] 500 mg tablet 500 mg PO BID 7 Days Qty: 14 0RF Rx Instructions: rx filled 09/09/22 (rx not picked up) Discharge Orders: Discharge Order (Routine); Ordered 09/10/22 Ordered By: Buzz Dunne Referrals: Bridget Millan PA [Primary Care Provider] - 09/17/22 10:00 am Discharge Diet: Regular Discharge Activity: Increase activity as tolerated Patient Instructions: Opioid Safety Discharge Attestations Time Spent in Discharge Care*: less than 30 min Quality Metrics Clinical Quality Measures [ No reported AMI, CVA or VTE this stay] Coding Level of Care Code Acute g [facility] note Diagnoses Intractable vomiting R11.10 Epiploic appendagitis K63.89 Pyelonephritis N12
--- NOTE | 2022-09-10 11:28 | PC.NURSE ---
DISCHARGE PAPERWORK GONE OVER WITH PT AND PTS GRANDMA. MEDICATIONS SENT TO PHARMACY OF PTS CHOICE. ALL QUESTIONS ANSWERED. PT SAFELY WHEELED OUT BY THIS NURSE.
== END 2022-09-10 11:30 | disposition home or self-care (01) ==
LOC: ER 09-10 00:45 → MEDSURG 09-10 07:54 → ER 09-10 19:08
PROVIDERS: Admitting Provider Student in an Organized Health Care Education/Training Program; Emergency Provider Emergency Medicine; PCP Physician Assistant; Visit Provider Internal Medicine
DX: R11.10 Vomiting, unspecified (principal); K63.89 Other specified diseases of intestine; N12 Tubulo-interstitial nephritis, not specified as acute or chronic
CPT/HCPCS: 36415; 74176; 80053; 81001; 81025; 83690; 85025; 87040; 87426; 87491; 87591; 96365; 96375; 96376; 99285; G0378; J0696; J1170; J1885; J2405; J7030

== ENCOUNTER 2022-10-27 15:43 | Emergency (ER) | payer MEDICAID, SELFPAY ==
[2022-10-27 15:52] VITALS: BP 155/103; PULSE 88; RESP 18; TEMP 36.8; O2SAT 96
--- NOTE | 2022-10-27 17:38 | XRR_ITS ---
PROCEDURE INFORMATION: Exam: XR Chest Exam date and time: 10/27/2022 6:26 PM Age: 21 years old Clinical indication: Cough and fever; Sternal or substernal pain; Additional info: Cough, fever TECHNIQUE: Imaging protocol: Radiologic exam of the chest. Views: 1 view. COMPARISON: CR XR chest 1V portable [id number] 08/12/2021 8:24 PM FINDINGS: Lungs: Unremarkable. No consolidation. Pleural spaces: Unremarkable. No pleural effusion. No pneumothorax. Heart/Mediastinum: Unremarkable. No cardiomegaly. Bones/joints: Unremarkable. XR/XR chest 1V portable [id number] IMPRESSION: No acute findings.
--- NOTE | 2022-10-27 17:38 | W.ED.FEVER ---
HPI - Fever General: Chief Complaint: Fever Stated Complaint: Chest hurts, N/V Time Seen by Provider: 10/27/22 17:37 History of Present Illness: 21-year-old female who reports that she been feeling ill for quite a while with wheezing, fever, and malaise. On further questioning patient does report that within 2 to 3 days. Patient reports history of asthma. Patient also has a history of mental health illnesses including depression, anxiety, bipolar, borderline intellectual functioning, ADHD, Asperger's syndrome. Patient appears nontoxic. Patient appears in no pain. Review of Systems Const: Reports: fever(s) Resp: Reports: wheezing : Reports: difficulty voiding PFSH ED PFSH: Medical History Asperger's syndrome Attention-deficit hyperactivity disorder, combined type Borderline intellectual functioning Generalized anxiety disorder Major depression, recurrent Psychiatric care Family History Other Cancer Diabetes Heart disease Seizure Social History Smoking and tobacco status: never smoked History of recent travel: No Female Reproductive History: Date of last menstrual period: 08/20/22 Physical Exam Const: COMMON NORMALS: alert HENMT: COMMON NORMALS: normocephalic HEAD & SCALP: normocephalic THROAT: posterior oropharynx normal Neck/C-Spine: COMMON NORMALS: full ROM Resp: COMMON NORMALS: normal respiratory effort and clear to auscultation bilaterally AUSCULTATION: clear to auscultation bilaterally Cardio: COMMON NORMALS: regular rate and regular rhythm RATE: regular rate RHYTHM: regular rhythm GI: COMMON NORMALS: Soft to palpation PALPATION: Yes Soft to palpation : BLADDER/KIDNEY EXAM: Yes CVA tenderness Back/Pelvis: GENERAL BACK: Yes CVA tenderness Extremity: COMMON NORMALS: full ROM Neuro: SENSORIUM/ORIENTATION: Yes alert Skin: COMMON NORMALS: turgor normal GENERAL SKIN EXAM: turgor normal Course Vital Signs: Vital signs: Vital Signs Temperature 98.3 F 10/27/22 15:52 Pulse Rate 88 10/27/22 15:52 Respiratory Rate 18 10/27/22 15:52 Blood Pressure 155/103 10/27/22 15:52 Pulse Oximetry 96 10/27/22 15:52 MDM - Fever Medical Decision Making 21-year-old female comes in today for complaints of malaise, fever, wheezing, and urinary difficulty. Patient appears nontoxic. On exam abdomen soft nontender. Lungs are clear to auscultation. Heart rates regular. Vital signs are normal except for some mild elevation of blood pressure at 150 systolic. Patient does endorse CVA tenderness on percussion. Differential diagnosis includes not limited to influenza, viral syndrome, pneumonia, asthma, urinary tract infection. Chest x-ray was normal. Flu test was negative. Urine was negative. And urine had a trace of blood but otherwise was unremarkable. I feel the patient probably has a mild upper respiratory infection is aggravating her asthma. There is no signs of status asthmaticus or severe exacerbation. I encourage fluids rest and follow-up with primary care. Patient was given 8 mg of dexamethasone x1 and refilled her inhaler. Patient reported understanding of care plan and need for follow-up or return to the ER. Lab Data Laboratory Results HCG, Qual Negative (Negative) 10/27/22 17:54 Urine Color Yellow (Yellow) 10/27/22 17:54 Urine Appearance Clear (CLEAR) 10/27/22 17:54 Urine pH 7 (5-7) 10/27/22 17:54 Ur Specific [place] 1.015 (1.005-1.030) 10/27/22 17:54 Urine Protein Neg (Negative) 10/27/22 17:54 Urine Glucose (UA) Norm (Normal) 10/27/22 17:54 Urine Ketones Negative (Negative) 10/27/22 17:54 Urine Blood 3+ (Negative) H 10/27/22 17:54 Urine Nitrate Negative (Negative) 10/27/22 17:54 Urine Bilirubin Neg (Negative) 10/27/22 17:54 Urine Urobilinogen Neg mg/dL (Negative) 10/27/22 17:54 Ur Leukocyte Esterase Negative (Negative) 10/27/22 17:54 Urine RBC 0-4 /hpf (0-2) H 10/27/22 17:54 Urine WBC None /hpf (0-5) 10/27/22 17:54 Ur Squamous Epith Cells None /hpf (0-5) 10/27/22 17:54 Amorphous Sediment Not Reportable 10/27/22 17:54 Urine Bacteria None /hpf (NONE) 10/27/22 17:54 Influenza Type A Ag negative (Negative) 10/27/22 17:54 Influenza Type B Ag negative (Negative) 10/27/22 17:54 Discharge Plan Discharge Patient Disposition: Home Clinical Impression: URI (upper respiratory infection) Qualifiers: URI type: unspecified URI Qualified Code(s): J06.9 - Acute upper respiratory infection, unspecified Asthma Qualifiers: Asthma severity: mild Asthma persistence: persistent Asthma complication type: uncomplicated Qualified Code(s): J45.30 - Mild persistent asthma, uncomplicated Condition: Stable Prescriptions: Continued albuterol sulfate 90 mcg/actuation HFA aerosol inhaler 1 inh inhalation QID PRN (Reason: shortness of breath or wheezing) Qty: 6.7 0RF No Action sertraline [Zoloft] 100 mg tablet 100 mg PO DAILY Qty: 30 1RF polyethylene glycol 3350 [Miralax] 17 gram Powder In Packet 17 g PO DAILY PRN (Reason: Constipation) albuterol sulfate 2.5 mg /3 mL (0.083 %) solution for nebulization 2.5 mg inhalation QID PRN (Reason: Shortness Of Breath) norgestimate-ethinyl estradiol [Sprintec (28)] 0.25-35 mg-mcg Tablet 1 tab PO DAILY cetirizine [Zyrtec] 10 mg Tablet 10 mg PO DAILY PRN (Reason: Allergy Symptoms) loperamide 2 mg capsule 2 mg PO QID PRN (Reason: Diarrhea) dicyclomine 20 mg tablet 20 mg PO QID PRN (Reason: Abdominal Pain) ibuprofen 200 mg Tablet 200 mg PO Q6H PRN (Reason: Pain) ipratropium bromide 42 mcg (0.06 %) spray,non-aerosol 2 spray INTRANASAL TID potassium chloride 10 mEq tablet,ER particles/crystals 10 meq PO DAILY Qty: 3 0RF Discharge Orders: Discharge ED (Routine); Ordered 10/27/22 Ordered By: Tim Neves Referrals: Bridget Millan PA [Primary Care Provider] - Discharge Diet: Usual diet Discharge Activity: Increase activity as tolerated Patient Instructions: Upper Respiratory Infection (ED) Activity Restrictions/Additional Instructions: Home and rest. Drink plenty of fluids. Continue with albuterol inhaler as needed for wheezing or cough. Use acetaminophen and ibuprofen for discomfort or fever. Follow-up with primary care as needed. Return to ED for worsening symptoms or new concerns. Stand Alone Forms: Work/School Release Coding Level of Care Code ED Business Analysis Specialist for [employer] Fwd Exam Comprehensive
[2022-10-27 18:18] LABS: HCG Qualitative Urine. Negative (Negative)
[2022-10-27 18:30] LABS: Add Urine Microscopic? YES; Bilirubin Urine Neg (Negative); Blood Urine 3+ (Negative); Glucose Urine UA Norm (Normal); Ketones Urine Negative (Negative); Leukocyte Esterase Urine Negative (Negative); Nitrate Urine Negative (Negative); Protein Urine Neg (Negative); Specific Gravity, Urine 1.015 (1.005-1.030); Urine Appearance Clear (CLEAR); Urine Color Yellow (Yellow); Urobilinogen Urine Neg (Negative); pH Urine 7 (5-7)
[2022-10-27 18:31] LABS: Add Urine Culture? No; RBC Urine 0-4 /hpf (0-2)
[2022-10-27 18:35] LABS: Influenza A by IFA negative (Negative); Influenza B by IFA negative (Negative)
[2022-10-27] MEDS: dexamethasone 4 mg Tablet 8 MG PO (19:04)
== END 2022-10-27 19:07 | disposition home or self-care (01) ==
PROVIDERS: Emergency Medicine; Emergency Provider Nurse Practitioner Family; PCP Physician Assistant
DX: J06.9 Acute upper respiratory infection, unspecified (principal); J45.30 Mild persistent asthma, uncomplicated
CPT/HCPCS: 71045; 81001; 81025; 87804; 99284; J8540

== ENCOUNTER 2022-11-17 17:57 | Emergency (ER) | payer MEDICAID, SELFPAY ==
[2022-11-17 18:42] VITALS: BP 127/78; PULSE 93; RESP 13; TEMP 36.4; O2SAT 99
--- NOTE | 2022-11-17 19:00 | XRR_ITS ---
PROCEDURE INFORMATION: Exam: XR Right Shoulder Exam date and time: 11/17/2022 7:08 PM Age: 22 years old Clinical indication: Pain; Shoulder; Right; Additional info: Nontraumatic pain TECHNIQUE: Imaging protocol: Radiologic exam of the Right shoulder. Views: 2 or more views. COMPARISON: CR (CHEST, ) 10/27/2022 6:26 PM FINDINGS: Bones/joints: Normal. Soft tissues: Normal. XR/XR shoulder RT min 2V* [id number] IMPRESSION: No acute findings.
[2022-11-17] MEDS: ibuprofen 600 mg Tablet PO (21:36)
--- NOTE | 2022-11-17 21:52 | W.ED.EXTPRO ---
HPI - Extremity Problem General: Chief complaint: Extremity Injury, Upper Stated complaint: right shoulder Time Seen by Provider: 11/17/22 20:17 Source: patient Mode of arrival: ambulatory Limitations: no limitations History of Present Illness: Patient presents to the emergency department today accompanied by her significant other for evaluation treatment of right shoulder pain. Triage note indicates that the patient noticed pain yesterday and had no fall however, patient informed me that the incident happened today and did involve a fall. Patient states that she was in the bathroom today and while either getting onto or off of the toilet slipped on some water on the floor and impacted her right shoulder on the tile floor. Patient states she cannot move her shoulder. She denies any previous injuries or fractures to her right arm or shoulder. Review of Systems General: Reports: 10 or more systems reviewed and unremarkable except in HPI and below Musc: Reports: extremity pain, extremity swelling, joint pain and limited range of motion [facility] ED PFSH: Medical History Asperger's syndrome Attention-deficit hyperactivity disorder, combined type Borderline intellectual functioning Generalized anxiety disorder Major depression, recurrent Psychiatric care Family History Other Cancer Diabetes Heart disease Seizure Social History Smoking and tobacco status: never smoked History of recent travel: No Female Reproductive History: Date of last menstrual period: 08/20/22 Physical Exam Const: COMMON NORMALS: no acute distress, patient oriented x3 and alert HENMT: COMMON NORMALS: normocephalic, atraumatic and hearing grossly normal bilaterally HEAD & SCALP: normocephalic and atraumatic Eye: COMMON NORMALS: Equal, round and reactive pupils present, EOMs intact bilaterally and conjunctivae normal CONJUNCTIVA: Yes conjunctivae normal PUPIL: Yes Equal, round and reactive pupils present Neck/C-Spine: COMMON NORMALS: full ROM and no JVD Lymph: LYMPHATIC: no lymphadenopathy noted Resp: COMMON NORMALS: normal respiratory effort, No retractions and No use of accessory muscles Cardio: COMMON NORMALS: no JVD and regular rate RATE: regular rate Extremity: NARRATIVE EXTREMITY EXAM: Patient has complaints of pain anywhere you touch her on the right upper arm and right shoulder-even with fingertip light touch. No obvious signs of a deformity of the shoulder. No bruising, no erythema, no abrasions. Patient with full range of motion of her neck. Patient indicates inability to perform range of motion however, patient demonstrates 40 degrees of abduction, the same amount of forward flexion and full range of motion to the joints of his right upper extremity down to the fingertips. 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 Neuro: COMMON NORMALS: patient oriented x3 SENSORIUM/ORIENTATION: Yes alert Psych: COMMON NORMALS: mental status grossly normal, Normal thought process present, cooperative and normal affect THOUGHT PROCESS: Normal thought process present Skin: COMMON NORMALS: no rashes or lesions noted and turgor normal GENERAL SKIN EXAM: no rashes or lesions noted and turgor normal Course Vital Signs: Vital signs: Vital Signs Temperature 97.6 F 11/17/22 18:42 Pulse Rate 93 11/17/22 18:42 Respiratory Rate 13 11/17/22 18:42 Blood Pressure 127/78 11/17/22 18:42 Pulse Oximetry 99 11/17/22 18:42 Oxygen Delivery Me thod 11/17/22 18:42 MDM - Extremity (Nontraumatic) Medical Decision Making Patient presents to the ER today for evaluation treatment of right shoulder pain. Triage initially indicated no injury that occurred yesterday however, patient states pain with fall today. Patient's physical examination is otherwise unremarkable both visually and through examination. Pain is extremely nonspecific. X-ray was read negative. We will treat for inflammatory type pain and patient was given a sling with instructions to only wear for a couple of days and to take her arm out and go through range of motion daily-multiple times. Went over at home RICE therapy and at discharge, patient was asking for something for pain before she left. Patient was given Toradol and I encouraged continued use of Tylenol and ibuprofen at home. Follow-up with her primary care doctor later this week for recheck if needed. Differential Diagnosis Unlikely gout, cellulitis or deep venous thrombosis of upper extremity (Possible fracture, dislocation, rotator cuff, AC separation, contusion) Lab Data Radiology Impressions Shoulder X-Ray 11/17/22 19:00 IMPRESSION: No acute findings. Discharge Plan Discharge Patient Disposition: Home Clinical Impression: Contusion of right shoulder or upper extremity Condition: Stable Prescriptions: No Action sertraline [Zoloft] 100 mg tablet 100 mg PO DAILY Qty: 30 1RF polyethylene glycol 3350 [Miralax] 17 gram Powder In Packet 17 g PO DAILY PRN (Reason: Constipation) albuterol sulfate 2.5 mg /3 mL (0.083 %) solution for nebulization 2.5 mg inhalation QID PRN (Reason: Shortness Of Breath) norgestimate-ethinyl estradiol [Sprintec (28)] 0.25-35 mg-mcg Tablet 1 tab PO DAILY cetirizine [Zyrtec] 10 mg Tablet 10 mg PO DAILY PRN (Reason: Allergy Symptoms) loperamide 2 mg capsule 2 mg PO QID PRN (Reason: Diarrhea) dicyclomine 20 mg tablet 20 mg PO QID PRN (Reason: Abdominal Pain) ibuprofen 200 mg Tablet 200 mg PO Q6H PRN (Reason: Pain) ipratropium bromide 42 mcg (0.06 %) spray,non-aerosol 2 spray INTRANASAL TID potassium chloride 10 mEq tablet,ER particles/crystals 10 meq PO DAILY Qty: 3 0RF albuterol sulfate 90 mcg/actuation HFA aerosol inhaler 1 inh inhalation QID PRN (Reason: shortness of breath or wheezing) Qty: 6.7 0RF Discharge Orders: Discharge ED (Routine); Ordered 11/17/22 Ordered By: Cassia Boss Referrals: Bridget Millan PA [Primary Care Provider] - Discharge Diet: Usual diet Discharge Activity: Increase activity as tolerated Patient Instructions: Contusion in Adults (ED), Shoulder Pain (ED) Activity Restrictions/Additional Instructions: Wear your sling for the next 48 to 72 hours. Be sure you remove your arm every couple of hours and go through some range of motion-move your arm around to prevent over stiffening of the shoulder joint. I recommend applying an ice pack to the area for 15 to 20 minutes, multiple times throughout the day. I also recommend using Tylenol and ibuprofen to help with pain and the swelling you are experiencing. Do not lift, push, pull, or carry anything greater than 5 pounds with that arm for the next 48 to 72 hours as well. Allow your shoulder to rest and heal over the next few days. Coding Level of Care Code ED Manufacturing Systems Engineer for Sherice Jaramillo
[2022-11-17 22:04] VITALS: PULSE 88; RESP 16; O2SAT 97
== END 2022-11-17 22:05 | disposition home or self-care (01) ==
PROVIDERS: Emergency Provider Physician Assistant; PCP Physician Assistant
DX: S40.011A Contusion of right shoulder, initial encounter (principal); F84.5 Asperger's syndrome; W19.XXXA Unspecified fall, initial encounter
CPT/HCPCS: 73030; 99283

== ENCOUNTER 2022-12-07 14:52 | Emergency (ER) | payer MEDICAID, SELFPAY ==
[2022-12-07 15:37] VITALS: BP 128/79; PULSE 86; RESP 16; TEMP 36.9; O2SAT 97
--- NOTE | 2022-12-07 16:18 | PC.NURSE ---
WHILE IN LOBBY WITH PT, PT IS WATCHING TV IN NAD.
--- NOTE | 2022-12-07 17:00 | W.ED.SOB ---
HPI - SOB/Dyspnea General: Chief Complaint: Shortness of Breath/Dyspnea Stated Complaint: sob Time Seen by Provider: 12/07/22 16:59 History of Present Illness: HPI Narrative: 22-year-old female comes in today with some complaints of wheezing and shortness of breath. Patient appears nontoxic. Patient has a history of asthma. Patient is concerned that her asthma is acting up. Patient does report improvement of symptoms after use of albuterol. Patient reports illness for the past 2 to 3 days. Patient appears nontoxic. Patient appears in no pain. Associated symptoms: Reports fever(s); Deny chest pain Review of Systems Const: Reports: fever(s) ENMT: Denies: throat pain Card: Denies: chest pain Resp: Reports: dyspnea and wheezing PFS ED PFSH: Medical History (Updated 12/07/22 @ 17:10 by DALILA Mendoza) Acute cystitis Asperger's syndrome Attention-deficit hyperactivity disorder, combined type Borderline intellectual functioning Epiploic appendagitis Generalized anxiety disorder Intractable vomiting Major depression, recurrent Psychiatric care Pyelonephritis Family History (Updated 12/02/22 @ 08:37 by Angelita Gotti LPN) Other Cancer Diabetes Heart disease Seizure Denies family history of Colon cancer Ovarian cancer Breast cancer Family history of thyroid problem Hypertension Uterine cancer Stroke Hyperchloremia Social History Smoking and tobacco status: never smoked History of recent travel: No Female Reproductive History: Date of last menstrual period: 08/20/22 Physical Exam Const: COMMON NORMALS: no acute distress HENMT: COMMON NORMALS: normocephalic HEAD & SCALP: normocephalic Resp: COMMON NORMALS: normal respiratory effort AUSCULTATION: wheezes inspiratory wheezes Cardio: COMMON NORMALS: regular rate and regular rhythm RATE: regular rate RHYTHM: regular rhythm Extremity: COMMON NORMALS: no pedal edema Skin: COMMON NORMALS: no rashes or lesions noted GENERAL SKIN EXAM: no rashes or lesions noted Course Vital Signs: Vital signs: Vital Signs Temperature 98.5 F 12/07/22 15:37 Pulse Rate 86 12/07/22 15:37 Respiratory Rate 16 12/07/22 15:37 Blood Pressure 128/79 12/07/22 15:37 Pulse Oximetry 97 12/07/22 15:37 MDM - SOB/Dyspnea Medical Decision Making 22-year-old female comes in today for complaints of increased wheezing and shortness of breath for the last 2 to 3 days. Patient reported fever at times. On exam patient has some mild expiratory wheezes but good air movement throughout. Vital signs are normal. Skin is warm and dry. Differential diagnosis includes viral syndrome, pneumonia, exacerbation of asthma. Patient will be treated with dexamethasone and azithromycin and continue with her inhalers as directed. Courage plenty of fluids and follow-up with primary care. No signs of serious illness or injury is noted. Patient reported understanding and agreed to plan. Discharge Plan Discharge Patient Disposition: Home Clinical Impression: Asthma with exacerbation Condition: Stable Prescriptions: New azithromycin 250 mg tablet 250 mg PO DAILY 4 Days Qty: 4 0RF Rx Instructions: start on day 2 of therapy dexamethasone 2 mg tablet 2 mg PO BID Qty: 6 0RF No Action fexofenadine [Kailey Allergy] 180 mg tablet 180 mg PO Q24H Qty: 30 1RF benzonatate 200 mg capsule 200 mg PO TID PRN (Reason: cough) Qty: 30 0RF fluticasone propionate [Flonase Allergy Relief] 50 mcg/actuation spray,suspension 2 spray intranasal DAILY Qty: 16 0RF Rx Instructions: administer into each nostril albuterol sulfate 90 mcg/actuation HFA aerosol inhaler 2 puff inhalation Q4H PRN (Reason: shortness of breath or wheezing) Qty: 8.5 1RF sertraline [Zoloft] 100 mg tablet 100 mg PO DAILY Qty: 30 1RF polyethylene glycol 3350 [Miralax] 17 gram Powder In Packet 17 g PO DAILY PRN (Reason: Constipation) albuterol sulfate 2.5 mg /3 mL (0.083 %) solution for nebulization 2.5 mg inhalation QID PRN (Reason: Shortness Of Breath) norgestimate-ethinyl estradiol [Sprintec (28)] 0.25-35 mg-mcg Tablet 1 tab PO DAILY cetirizine [Zyrtec] 10 mg Tablet 10 mg PO DAILY PRN (Reason: Allergy Symptoms) loperamide 2 mg capsule 2 mg PO QID PRN (Reason: Diarrhea) dicyclomine 20 mg tablet 20 mg PO QID PRN (Reason: Abdominal Pain) ibuprofen 200 mg Tablet 200 mg PO Q6H PRN (Reason: Pain) ipratropium bromide 42 mcg (0.06 %) spray,non-aerosol 2 spray INTRANASAL TID potassium chloride 10 mEq tablet,ER particles/crystals 10 meq PO DAILY Qty: 3 0RF Discharge Orders: Discharge ED (Routine); Ordered 12/07/22 Ordered By: Tim Neves Referrals: Bridget Millan PA [Primary Care Provider] - Discharge Diet: Usual diet Discharge Activity: Increase activity as tolerated Patient Instructions: Asthma (ED) Activity Restrictions/Additional Instructions: Home and rest. Continue with inhalers as directed. Take medications azithromycin and dexamethasone as prescribed. Drink plenty of water with medication. Follow-up with primary care in 2 to 3 days for recheck. Return to ED for new concerns. Coding Level of Care Code ED Warehouse Administrative Assistant for Sherice Jaramillo
[2022-12-07] MEDS: dexamethasone 4 mg Tablet 10 MG PO (17:28)
[2022-12-07] MEDS: azithromycin 250 mg Tablet 500 MG PO (17:29)
[2022-12-07 17:32] VITALS: BP 138/87; PULSE 96; RESP 16; O2SAT 96
== END 2022-12-07 17:33 | disposition home or self-care (01) ==
PROVIDERS: Emergency Provider Nurse Practitioner Family; PCP Physician Assistant
DX: J45.901 Unspecified asthma with (acute) exacerbation (principal)
CPT/HCPCS: 99283; J8540; Q0144

== ENCOUNTER 2022-12-21 14:36 | Emergency (ER) | payer MEDICAID, SELFPAY ==
[2022-12-21 14:52] VITALS: BP 135/88; PULSE 85; RESP 16; TEMP 36.6; O2SAT 95
--- NOTE | 2022-12-21 18:27 | XRR_ITS ---
PROCEDURE INFORMATION: Exam: XR Chest Exam date and time: 12/21/2022 6:32 PM Age: 22 years old Clinical indication: Shortness of breath; Additional info: SOB TECHNIQUE: Imaging protocol: Radiologic exam of the chest. Views: 1 view. COMPARISON: CR (CHEST, ) 10/27/2022 6:26 PM FINDINGS: Lungs: Unremarkable. No consolidation. Pleural spaces: Unremarkable. No pleural effusion. No pneumothorax. Heart/Mediastinum: Unremarkable. No cardiomegaly. Bones/joints: Unremarkable. XR/XR chest 1V portable [id number] IMPRESSION: No acute findings.
--- NOTE | 2022-12-21 18:30 | W.ED.ALLEREA ---
HPI - Allergic Reaction General: Chief complaint: Allergic Reaction Stated complaint: [place] sent/allergic reaction Time Seen by Provider: 12/21/22 18:07 Source: patient and family History of Present Illness: HPI narrative: 22-year-old female with a history of asthma. She presents with shortness of breath, cough, and a feeling of throat tightness. She is also been running fevers. She relates this to exposure to the neighbors cat. This been an ongoing thing for a few days now. Fever has been noted is not 100-101. She has a rash she says across her chest. It is itchy. She has been using her inhaler and ibuprofen which does not seem to help a whole lot. MD complaint: allergic reaction and other Onset (ago): day(s) Exposure: other Associated symptoms: Reports difficulty breathing, hoarseness, itching and rash; Deny abdominal pain, dysphagia, dizziness, facial swelling, lip swelling, tongue swelling or vomiting Severity: moderate Treatment prior to arrival: other Review of Systems Const: Reports: fever(s) and chills Eyes: Denies: change in vision ENMT: Reports: hoarseness Card: Reports: chest pain Resp: Reports: dyspnea and non-productive cough GI: Denies: abdominal pain, vomiting or dysphagia Neuro: Denies: dizziness All/Imm: Denies: tongue swelling or facial swelling PFSH ED PFSH: Medical History Acute cystitis Asperger's syndrome Attention-deficit hyperactivity disorder, combined type Borderline intellectual functioning Epiploic appendagitis Generalized anxiety disorder Intractable vomiting Major depression, recurrent Psychiatric care Pyelonephritis Family History (Updated 12/02/22 @ 08:37 by Angelita Gotti LPN) Other Cancer Diabetes Heart disease Seizure Denies family history of Colon cancer Ovarian cancer Breast cancer Family history of thyroid problem Hypertension Uterine cancer Stroke Hyperchloremia Social History Smoking and tobacco status: never smoked History of recent travel: No Female Reproductive History: Date of last menstrual period: 08/20/22 Physical Exam Const: COMMON NORMALS: no acute distress GENERAL APPEARANCE: cooperative; not ill appearing and not frail appearing HENMT: COMMON NORMALS: normocephalic, atraumatic and Normal external nose present HEAD & SCALP: normocephalic and atraumatic FACE & SINUS: normal facial exam and face symmetric NOSE: Normal external nose present Eye: COMMON NORMALS: Equal, round and reactive pupils present and EOMs intact bilaterally PUPIL: Yes Equal, round and reactive pupils present Neck/C-Spine: GENERAL: Yes trachea midline Chest: CHEST: Yes Symmetrical chest wall rise Resp: COMMON NORMALS: normal respiratory effort, No retractions, No use of accessory muscles and clear to auscultation bilaterally AUSCULTATION: clear to auscultation bilaterally Cardio: COMMON NORMALS: regular rate and regular rhythm RATE: regular rate RHYTHM: regular rhythm GI: COMMON NORMALS: Normal to inspection, nondistended, normoactive bowel sounds present Extremity: COMMON NORMALS: no pedal edema Neuro: CHING COMA SCALE: document GCS findings [place] coma scale eye opening: Spontaneous [place] coma scale verbal response: Orientated [place] coma scale motor response: Obey commands [place] coma scale total score: 15 SENSORY EXAM: Yes extremities (intact) Psych: COMMON NORMALS: speech normal SPEECH: Yes normal speech Skin: COMMON NORMALS: no rashes or lesions noted GENERAL SKIN EXAM: no rashes or lesions noted Course Vital Signs: Vital signs: Vital Signs Temperature 97.8 F 12/21/22 14:52 Pulse Rate 85 12/21/22 14:52 Respiratory Rate 16 12/21/22 14:52 Blood Pressure 135/88 12/21/22 14:52 Pulse Oximetry 95 12/21/22 14:52 Oxygen Delivery Me thod 12/21/22 14:52 MDM - Allergic Reaction Medical Decision Making Patient does not have visible urticaria currently. She is resting comfortably. Saturations are normal. No signs of oral swelling. Chest x-ray is pending Chest x-ray is negative. She will be allowed home on antihistamines, prednisone, albuterol, antibiotics. Discharge Plan Discharge Patient Disposition: Home Clinical Impression: Allergic reaction, Bronchitis Condition: Stable Prescriptions: New methylprednisolone [Medrol ([place])] 4 mg tablets,dose pack See Rx Instructions .ROUTE .COMPLEX Qty: 21 0RF Rx Instructions: orally per package directions diphenhydramine HCl [Benadryl] 25 mg capsule 25 mg PO Q8H PRN (Reason: allergic reaction) Qty: 30 0RF azithromycin 250 mg tablet See Rx Instructions .ROUTE .COMPLEX Qty: 6 0RF Rx Instructions: For 250 mg dose pack: take 500 mg today (day 1), then 250 mg for 4 days (days 2-5) Discontinued dexamethasone 2 mg tablet 2 mg PO BID Qty: 6 0RF No Action fexofenadine [Kailey Allergy] 180 mg tablet 180 mg PO Q24H Qty: 30 1RF benzonatate 200 mg capsule 200 mg PO TID PRN (Reason: cough) Qty: 30 0RF fluticasone propionate [Flonase Allergy Relief] 50 mcg/actuation spray,suspension 2 spray intranasal DAILY Qty: 16 0RF Rx Instructions: administer into each nostril albuterol sulfate 90 mcg/actuation HFA aerosol inhaler 2 puff inhalation Q4H PRN (Reason: shortness of breath or wheezing) Qty: 8.5 1RF sertraline [Zoloft] 100 mg tablet 100 mg PO DAILY Qty: 30 1RF polyethylene glycol 3350 [Miralax] 17 gram Powder In Packet 17 g PO DAILY PRN (Reason: Constipation) albuterol sulfate 2.5 mg /3 mL (0.083 %) solution for nebulization 2.5 mg inhalation QID PRN (Reason: Shortness Of Breath) norgestimate-ethinyl estradiol [Sprintec (28)] 0.25-35 mg-mcg Tablet 1 tab PO DAILY cetirizine [Zyrtec] 10 mg Tablet 10 mg PO DAILY PRN (Reason: Allergy Symptoms) loperamide 2 mg capsule 2 mg PO QID PRN (Reason: Diarrhea) dicyclomine 20 mg tablet 20 mg PO QID PRN (Reason: Abdominal Pain) ibuprofen 200 mg Tablet 200 mg PO Q6H PRN (Reason: Pain) ipratropium bromide 42 mcg (0.06 %) spray,non-aerosol 2 spray INTRANASAL TID potassium chloride 10 mEq tablet,ER particles/crystals 10 meq PO DAILY Qty: 3 0RF Discharge Orders: Discharge ED (Routine); Ordered 12/21/22 Ordered By: Vernon Wong Referrals: Bridget Millan PA [Primary Care Provider] - Patient Instructions: Allergic Reaction, Acute Bronchitis (ED) Activity Restrictions/Additional Instructions: Return for continued fever despite 2-3 more doses of antibiotics, worsening shortness of breath, chest discomfort, or throat tightening despite treatment. Take the Benadryl scheduled for the next 48 hours, then as needed. Other medications as directed. Coding Level of Care Code ED [facility] [employer] Clerk for Sherice Fwd Exam Comprehensive
[2022-12-21] MEDS: predniSONE 20 mg Tablet 60 MG PO (18:35)
[2022-12-21] MEDS: azithromycin 250 mg Tablet 500 MG PO (18:35)
[2022-12-21] MEDS: diphenhydrAMINE 50 mg Capsule PO (18:35)
[2022-12-21 18:55] VITALS: BP 168/83; PULSE 86; RESP 18; O2SAT 97
== END 2022-12-21 19:23 | disposition home or self-care (01) ==
PROVIDERS: Emergency Provider Emergency Medicine; PCP Physician Assistant
DX: T78.40XA Allergy, unspecified, initial encounter (principal); J40 Bronchitis, not specified as acute or chronic; F84.5 Asperger's syndrome
CPT/HCPCS: 71045; 99283; J7512; Q0144; Q0163

== ENCOUNTER 2022-12-22 19:11 | Emergency (ER) | payer MEDICAID, SELFPAY ==
[2022-12-22 19:12] VITALS: BMI 34.3
[2022-12-22 19:18] VITALS: BP 165/109; PULSE 79; RESP 16; TEMP 36.7; O2SAT 98
[2022-12-22] MEDS: ondansetron 2 mg/ML SDV 2 mL 4 MG IVP (19:56)
[2022-12-22] MEDS: sodium chloride 0.9% 1,000 ML 999 ML IV (19:57)
[2022-12-22 20:02] LABS: Add Urine Microscopic? NO; Charge for UA Resulting for Rev
[2022-12-22 20:11] LABS: Basophils # 0.1 10^3/uL (0.0-0.1); Basophils % 0.5 %; Eosinophils # 0.1 10^3/uL (0.0-0.8); Eosinophils % 0.9 %; Hematocrit 41.9 % (37.0-47.0); Hemoglobin 13.8 g/dL (11.5-15.3); Lymphocytes # 4.9 10^3/uL (0.8-4.8); Lymphocytes % 31.5 %; Mean Corpuscular HGB Conc 32.9 g/dL (30.0-36.0); Mean Corpuscular Hemoglobin 28.8 pg (28.0-34.0); Mean Corpuscular Volume 87.3 fl (81-99); Mean Platelet Volume 9.3 fL (7.4-10.4); Monocytes # 1.4 10^3/uL (0.2-0.9); Monocytes % 8.9 %; Neutrophils # 8.86 10^3/uL (1.8-7.7); Neutrophils % 57.5 %; Nucleated Red Blood Cells % 0 %; Platelet Count 318 10^3/cmm (130-400); Red Cell Distribution Width 13.6 % (12.1-15.1); White Blood Count 15.4 10^3/uL (4.0-10.0)
[2022-12-22 20:14] LABS: Urine Appearance Clear (CLEAR); Urine Color Yellow (Yellow)
[2022-12-22 20:15] LABS: Bilirubin Urine Neg (Negative); Blood Urine Neg (Negative); Glucose Urine UA 4+ (Normal); Ketones Urine 1+ (Negative); Leukocyte Esterase Urine Negative (Negative); Nitrate Urine Negative (Negative); Protein Urine Neg (Negative); Urobilinogen Urine Neg (Negative); pH Urine 6.5 (5-7)
--- NOTE | 2022-12-22 20:19 | W.ED.NAVMDI ---
HPI - Nausea/Vomiting/Diarrhea General: Chief complaint: Nausea/Vomiting/Diarrhea Stated complaint: N/V Time Seen by Provider: 12/22/22 19:18 History of Present Illness: 22-year-old female he was seen by me yesterday with cough, wheezing, congestion, or rash. She presents today with vomiting. She says she has vomited 4 times today, and is still coughing and wheezing. She denies significant belly pain. She says that she feels like crap . She does note that she filled her medication and has taken it appropriately today. MD elicited complaint: nausea and vomiting Onset (ago): hour(s) Associated nausea: Yes Associated abdominal pain: No Location of pain: None Pain consistency: other Quality: other Associated symtoms: Reports change in vision ( blurry at times), cough, dizziness, fevers/chills and nausea; Denies altered mental status, chest pain or headache(s) Treatment prior to arrival: other Review of Systems Eyes: Reports: change in vision ( blurry at times) Card: Denies: chest pain Resp: Reports: dyspnea and non-productive cough GI: Reports: nausea and vomiting; Denies: diarrhea Skin/Breast: Reports: rash (improved today) Neuro: Reports: dizziness; Denies: headache(s) [facility] ED PFSH: Medical History Acute cystitis Asperger's syndrome Attention-deficit hyperactivity disorder, combined type Borderline intellectual functioning Epiploic appendagitis Generalized anxiety disorder Intractable vomiting Major depression, recurrent Psychiatric care Pyelonephritis Family History Other Cancer Diabetes Heart disease Seizure Denies family history of Colon cancer Ovarian cancer Breast cancer Family history of thyroid problem Hypertension Uterine cancer Stroke Hyperchloremia Social History Smoking and tobacco status: never smoked History of recent travel: No Female Reproductive History: Date of last menstrual period: 08/20/22 Physical Exam Const: COMMON NORMALS: no acute distress EXAM LIMITATIONS: no altered mental status GENERAL APPEARANCE: cooperative; not ill appearing and not frail appearing HENMT: COMMON NORMALS: normocephalic, atraumatic and Normal external nose present HEAD & SCALP: normocephalic and atraumatic FACE & SINUS: normal facial exam and face symmetric NOSE: Normal external nose present Eye: COMMON NORMALS: Equal, round and reactive pupils present and EOMs intact bilaterally PUPIL: Yes Equal, round and reactive pupils present Neck/C-Spine: GENERAL: Yes trachea midline Chest: CHEST: Yes Symmetrical chest wall rise Resp: COMMON NORMALS: normal respiratory effort, No retractions, No use of accessory muscles and clear to auscultation bilaterally AUSCULTATION: clear to auscultation bilaterally Cardio: COMMON NORMALS: regular rate and regular rhythm RATE: regular rate RHYTHM: regular rhythm GI: COMMON NORMALS: Normal to inspection, nondistended, normoactive bowel sounds present Extremity: COMMON NORMALS: no pedal edema Neuro: CHING COMA SCALE: document GCS findings [place] coma scale eye opening: Spontaneous [place] coma scale verbal response: Orientated [place] coma scale motor response: Obey commands [place] coma scale total score: 15 SENSORY EXAM: Yes extremities (intact) Psych: COMMON NORMALS: speech normal SPEECH: Yes normal speech Skin: COMMON NORMALS: no rashes or lesions noted GENERAL SKIN EXAM: no rashes or lesions noted Course Vital Signs: Vital signs: Vital Signs Temperature 98.0 F 12/22/22 19:18 Pulse Rate 87 12/22/22 21:56 Respiratory Rate 16 12/22/22 21:56 Blood Pressure 142/87 12/22/22 21:56 Pulse Oximetry 98 12/22/22 21:56 Oxygen Delivery Me thod 12/22/22 19:18 MDM - Nausea/Vomiting/Diarrhea Medical Decision Making 22-year-old female who is nontoxic in appearance. She presents with vomiting. She was here yesterday with asthma type symptoms. She has been taking her medication. Her white blood cell count is 15, with elevation in neutrophils lymphocytes and monocytes indicative of corticosteroid use. Her blood sugar is high also indicative of corticosteroid use. It is 308 currently. Her other laboratory is not remarkable. She has chronic elevation in her ALT that is stable. She has received a liter of fluid and IV Zofran. No signs of any serious illness at all. She is encouraged to follow-up with her primary care doctor, especially after finishing steroids. When she is off steroids she will need a fasting glucose to rule out diabetes. Lab Data 12/22/22 20:00 12/22/22 20:00 Laboratory Results WBC 15.4 10^3/uL (4.0-10.0) H 12/22/22 20:00 RBC 4.80 10^6/uL (4.1-5.3) 12/22/22 20:00 Hgb 13.8 g/dL (11.5-15.3) 12/22/22 20:00 Hct 41.9 % (37.0-47.0) 12/22/22 20:00 MCV 87.3 fl (81-99) 12/22/22 20:00 MCH 28.8 pg (28.0-34.0) 12/22/22 20:00 MCHC 32.9 g/dL (30.0-36.0) 12/22/22 20:00 RDW 13.6 % (12.1-15.1) 12/22/22 20:00 Plt Count 318 10^3/cmm (130-400) 12/22/22 20:00 MPV 9.3 fL (7.4-10.4) 12/22/22 20:00 Neut % (Auto) 57.5 % 12/22/22 20:00 Lymph % (Auto) 31.5 % 12/22/22 20:00 [place] % (Auto) 8.9 % 12/22/22 20:00 Eos % (Auto) 0.9 % 12/22/22 20:00 Baso % (Auto) 0.5 % 12/22/22 20:00 Neut # (Auto) 8.86 10^3/uL (1.8-7.7) H 12/22/22 20:00 Lymph # (Auto) 4.9 10^3/uL (0.8-4.8) H 12/22/22 20:00 [place] # (Auto) 1.4 10^3/uL (0.2-0.9) H 12/22/22 20:00 Eos # (Auto) 0.1 10^3/uL (0.0-0.8) 12/22/22 20:00 Baso # (Auto) 0.1 10^3/uL (0.0-0.1) 12/22/22 20:00 Nucleated RBC % (auto) 0 % 12/22/22 20:00 Nucleated RBCs # 0.0 /100WBC 12/22/22 20:00 Sodium 136 mmol/L (136-145) 12/22/22 20:00 Potassium 4.2 mmol/L (3.5-5.1) 12/22/22 20:00 Chloride 101 mmol/L (98-107) 12/22/22 20:00 Carbon Dioxide 23 mmol/L (22-29) 12/22/22 20:00 Anion Gap 16.2 (5-19) 12/22/22 20:00 BUN 11 mg/dL (6-20) 12/22/22 20:00 Creatinine 0.5 mg/dL (0.5-0.9) 12/22/22 20:00 GFR Calculation 151.6 mL/min (90-130) H 12/22/22 20:00 Glucose 308 mg/dL (65-115) H 12/22/22 20:00 Calculated Osmolality 293 mOsm/kg (285-295) 12/22/22 20:00 Calcium 9.4 mg/dL (8.5-10.5) 12/22/22 20:00 Total Bilirubin 0.2 mg/dL (0.15-1.2) 12/22/22 20:00 AST 23 U/L (0-32) 12/22/22 20:00 ALT 63 U/L (0-33) H 12/22/22 20:00 Alkaline Phosphatase 170 U/L (35-105) H 12/22/22 20:00 C-Reactive Protein 3.2 mg/L (0.0-4.9) 12/22/22 20:00 Total Protein 7.0 g/dL (6.6-8.7) 12/22/22 20:00 Albumin 4.2 g/dL (3.5-5.2) 12/22/22 20:00 Globulin 2.8 g/dL (1.3-4.6) 12/22/22 20:00 Lipase 26 U/L (13-60) 12/22/22 20:00 HCG, Qual Negative (Negative) 12/22/22 20:00 Urine Color Yellow (Yellow) 12/22/22 19:36 Urine Appearance Clear (CLEAR) 12/22/22 19:36 Urine pH 6.5 (5-7) 12/22/22 19:36 Ur Specific [place] 1.020 (1.005-1.030) 12/22/22 19:36 Urine Protein Neg (Negative) 12/22/22 19:36 Urine Glucose (UA) 4+ (Normal) H 12/22/22 19:36 Urine Ketones 1+ (Negative) H 12/22/22 19:36 Urine Blood Neg (Negative) 12/22/22 19:36 Urine Nitrate Negative (Negative) 12/22/22 19:36 Urine Bilirubin Neg (Negative) 12/22/22 19:36 Urine Urobilinogen Neg mg/dL (Negative) 12/22/22 19:36 Ur Leukocyte Esterase Negative (Negative) 12/22/22 19:36 Discharge Plan Discharge Patient Disposition: Home Clinical Impression: Vomiting Condition: Stable Prescriptions: New ondansetron 4 mg film 4 mg PO DAILY PRN (Reason: nausea and vomiting) Qty: 10 0RF No Action fexofenadine [Kailey Allergy] 180 mg tablet 180 mg PO Q24H Qty: 30 1RF benzonatate 200 mg capsule 200 mg PO TID PRN (Reason: cough) Qty: 30 0RF fluticasone propionate [Flonase Allergy Relief] 50 mcg/actuation spray,suspension 2 spray intranasal DAILY Qty: 16 0RF Rx Instructions: administer into each nostril albuterol sulfate 90 mcg/actuation HFA aerosol inhaler 2 puff inhalation Q4H PRN (Reason: shortness of breath or wheezing) Qty: 8.5 1RF sertraline [Zoloft] 100 mg tablet 100 mg PO DAILY Qty: 30 1RF polyethylene glycol 3350 [Miralax] 17 gram Powder In Packet 17 g PO DAILY PRN (Reason: Constipation) Medrol ([place]) 4 mg tablets,dose pack See Rx Instructions .ROUTE .COMPLEX Qty: 21 0RF Rx Instructions: orally per package directions Benadryl 25 mg capsule 25 mg PO Q8H PRN (Reason: allergic reaction) Qty: 30 0RF azithromycin 250 mg tablet See Rx Instructions .ROUTE .COMPLEX Qty: 6 0RF Rx Instructions: For 250 mg dose pack: take 500 mg today (day 1), then 250 mg for 4 days (days 2-5) albuterol sulfate 2.5 mg /3 mL (0.083 %) solution for nebulization 2.5 mg inhalation QID PRN (Reason: Shortness Of Breath) norgestimate-ethinyl estradiol [Sprintec (28)] 0.25-35 mg-mcg Tablet 1 tab PO DAILY cetirizine [Zyrtec] 10 mg Tablet 10 mg PO DAILY PRN (Reason: Allergy Symptoms) loperamide 2 mg capsule 2 mg PO QID PRN (Reason: Diarrhea) dicyclomine 20 mg tablet 20 mg PO QID PRN (Reason: Abdominal Pain) ibuprofen 200 mg Tablet 200 mg PO Q6H PRN (Reason: Pain) ipratropium bromide 42 mcg (0.06 %) spray,non-aerosol 2 spray INTRANASAL TID potassium chloride 10 mEq tablet,ER particles/crystals 10 meq PO DAILY Qty: 3 0RF Discharge Orders: Discharge ED (Routine); Ordered 12/22/22 Ordered By: Vernon Wong Referrals: Bridget Millan PA [Primary Care Provider] - 1-3 days Activity Restrictions/Additional Instructions: Continue to take the medications you were prescribed yesterday. Your lab work showed that your blood sugar was high this evening. This is related to the steroids you are on for your asthma. Around 2 weeks after you finish these, you should have a fasting glucose drawn at your doctor's office to ensure your blood sugar comes back down to normal. There were no other significant abnormalities noted this evening. Follow a liquid diet for the next 36 hours, then add food as tolerated following. Take the medication you were prescribed this evening every 4 hours while awake for the first 24 hours scheduled, then as needed. Coding Level of Care Code ED Sand Cutter Operator for Sherice Fwd Exam Comprehensive
[2022-12-22 20:27] LABS: HCG, Serum Qual Negative (Negative)
[2022-12-22 20:31] LABS: Alanine Aminotransferase 63 U/L (0-33); Albumin Level 4.2 g/dL (3.5-5.2); Alkaline Phosphatase 170 U/L (35-105); C Reactive Protein 3.2 mg/L (0.0-4.9); Chloride 101 mmol/L (98-107); Potassium 4.2 mmol/L (3.5-5.1); Sodium 136 mmol/L (136-145)
[2022-12-22 20:48] LABS: Anion Gap 16.2 (5-19); Aspartate Amino Transferase 23 U/L (0-32); Blood Urea Nitrogen 11 mg/dL (6-20); Calcium 9.4 mg/dL (8.5-10.5); Carbon Dioxide 23 mmol/L (22-29); Globulin 2.8 g/dL (1.3-4.6); Glomerular Filtration Rate 151.6 mL/min (90-130); Glucose 308 mg/dL (65-115); Lipase 26 U/L (13-60); Osmolality Calculated 293 mOsm/kg (285-295); Total Bilirubin 0.2 mg/dL (0.15-1.2)
[2022-12-22 21:56] VITALS: BP 142/87; PULSE 87; RESP 16; O2SAT 98
== END 2022-12-22 21:57 | disposition home or self-care (01) ==
PROVIDERS: Emergency Provider Emergency Medicine; PCP Physician Assistant
DX: R11.11 Vomiting without nausea (principal); F84.5 Asperger's syndrome
CPT/HCPCS: 80053; 81003; 83690; 84703; 85025; 86140; 96361; 96374; 99284; J2405; J7030

== ENCOUNTER 2022-12-24 16:28 | Emergency (ER) | payer MEDICAID, SELFPAY ==
[2022-12-24 16:30] VITALS: BP 131/107; PULSE 86; RESP 16; TEMP 36.6; O2SAT 95; BMI 20.5
--- NOTE | 2022-12-24 16:36 | ED_ITS ---
HPI - General Adult General: Chief complaint: General Medical Stated complaint: FLU LIKE SYMPTOMS Source: patient Mode of arrival: ambulatory History of Present Illness: 22-year-old female presents emergency room via EMS with complaint of generally not feeling well this is her third visit in the last [address] Wong over the weekend. She had been on some antibiotics she states that she is still having symptoms. And is concerned because she is not better despite finishing a course of antibiotics she reports having a sore throat also having a small on her tongue generalized flulike symptoms and aches nonproductive cough no dysuria urgency or frequency no abdominal pain Onset (ago): week(s) (1) Severity: mild Pain Consistency: constant Relieving factors: none Exacerbating factors: none Associated symptoms: Deny chest pain, confusion, cough, diaphoresis, decreased appetite, dyspnea, fevers/chills, headache(s), malaise, nausea, rash, palpitations, seizures, short of breath, syncope, vomiting or weakness Treatments prior to arrival: none Review of Systems Const: Denies: fever(s), chills, fatigue, malaise or diaphoresis ENMT: Denies: throat pain, ear or mastoid pain, nasal discharge or nasal congestion Card: Denies: chest pain, palpitations, irregular heart rhythm, edema or s yncope Resp: Denies: dyspnea GI: Reports: abdominal pain; Denies: nausea or vomiting : Denies: flank pain, difficulty voiding, dysuria, urinary frequency or urinary urgency Musc: Denies: neck pain or back pain Skin/Breast: Denies: rash or pruritus Neuro: Denies: headache(s) or confusion PFS ED PFSH: Medical History Acute cystitis Asperger's syndrome Attention-deficit hyperactivity disorder, combined type Borderline intellectual functioning Epiploic appendagitis Generalized anxiety disorder Intractable vomiting Major depression, recurrent Psychiatric care Pyelonephritis Family History Other Cancer Diabetes Heart disease Seizure Denies family history of Colon cancer Ovarian cancer Breast cancer Family history of thyroid problem Hypertension Uterine cancer Stroke Hyperchloremia Social History Smoking and tobacco status: never smoked History of recent travel: No Female Reproductive History: Date of last menstrual period: 08/20/22 Physical Exam Const: COMMON NORMALS: no acute distress GENERAL APPEARANCE: cooperative and comfortable ORIENTATION/CONSCIOUSNESS: Yes awake, Yes oriented to person, Yes oriented to place and Yes oriented to time HENMT: COMMON NORMALS: normocephalic, atraumatic, hearing grossly normal bilaterally, external ears normal, EAC's normal, TM's normal bilaterally, Normal nasal mucous membranes and turbinates present, moist oral mucous membranes and oropharynx normal HEAD & SCALP: normocephalic and atraumatic NOSE: Normal nasal mucous membranes and turbinates present EXTERNAL EAR: Yes external ears normal EXTERNAL AUDITORY CANAL: EAC's normal TYMPANIC MEMBRANE: TM's normal bilaterally Eye: COMMON NORMALS: Equal, round and reactive pupils present, EOMs intact bilaterally, conjunctivae normal and no scleral icterus CONJUNCTIVA: Yes conjunctivae normal PUPIL: Yes Equal, round and reactive pupils present Neck/C-Spine: COMMON NORMALS: full ROM, no lymphadenopathy, supple and no JVD Lymph: LYMPHATIC: no lymphadenopathy noted and no lymphedema noted Resp: COMMON NORMALS: normal respiratory effort, No retractions, No use of accessory muscles and clear to auscultation bilaterally AUSCULTATION: clear to auscultation bilaterally Cardio: COMMON NORMALS: no JVD, regular rate, regular rhythm and No murmurs present (Cardio) RATE: regular rate RHYTHM: regular rhythm GI: COMMON NORMALS: Soft to palpation and No hepatosplenomegaly present AUSCULTATION: Yes normoactive bowel sounds PALPATION: Yes Soft to palpation, No Tenderness to palpation present (GI), No Guarding due to palpation present (GI) and Yes No hepatosplenomegaly present Extremity: COMMON NORMALS: normal to inspection, capillary refill normal, no clubbing, cyanosis or edema, no calf tenderness and no pedal edema Neuro: SENSORIUM/ORIENTATION: Yes oriented to person, Yes oriented to place and Yes oriented to time Skin: COMMON NORMALS: no rashes or lesions noted GENERAL SKIN EXAM: no rashes or lesions noted Course Vital Signs: Vital signs: Vital Signs Temperature 97.9 F 12/24/22 16:30 Pulse Rate 86 12/24/22 16:30 Respiratory Rate 16 12/24/22 16:30 Blood Pressure 131/107 12/24/22 16:30 Pulse Oximetry 95 12/24/22 16:30 Oxygen Delivery Me thod 12/24/22 16:30 MDM - General Adult Medical Decision Making Normal exam nontoxic in appearance will discharge home supportive cares follow- up as needed. Medical Records I reviewed the patient's medical records. Lab Data I reviewed the patient's lab results. Discharge Plan Discharge Patient Disposition: Home Clinical Impression: Viral syndrome Condition: Stable Prescriptions: No Action fexofenadine [Kailey Allergy] 180 mg tablet 180 mg PO Q24H Qty: 30 1RF benzonatate 200 mg capsule 200 mg PO TID PRN (Reason: cough) Qty: 30 0RF fluticasone propionate [Flonase Allergy Relief] 50 mcg/actuation spray,suspension 2 spray intranasal DAILY Qty: 16 0RF Rx Instructions: administer into each nostril albuterol sulfate 90 mcg/actuation HFA aerosol inhaler 2 puff inhalation Q4H PRN (Reason: shortness of breath or wheezing) Qty: 8.5 1RF sertraline [Zoloft] 100 mg tablet 100 mg PO DAILY Qty: 30 1RF polyethylene glycol 3350 [Miralax] 17 gram Powder In Packet 17 g PO DAILY PRN (Reason: Constipation) Medrol ([place]) 4 mg tablets,dose pack See Rx Instructions .ROUTE .COMPLEX Qty: 21 0RF Rx Instructions: orally per package directions Benadryl 25 mg capsule 25 mg PO Q8H PRN (Reason: allergic reaction) Qty: 30 0RF azithromycin 250 mg tablet See Rx Instructions .ROUTE .COMPLEX Qty: 6 0RF Rx Instructions: For 250 mg dose pack: take 500 mg today (day 1), then 250 mg for 4 days (days 2-5) ondansetron 4 mg film 4 mg PO DAILY PRN (Reason: nausea and vomiting) Qty: 10 0RF albuterol sulfate 2.5 mg /3 mL (0.083 %) solution for nebulization 2.5 mg inhalation QID PRN (Reason: Shortness Of Breath) norgestimate-ethinyl estradiol [Sprintec (28)] 0.25-35 mg-mcg Tablet 1 tab PO DAILY cetirizine [Zyrtec] 10 mg Tablet 10 mg PO DAILY PRN (Reason: Allergy Symptoms) loperamide 2 mg capsule 2 mg PO QID PRN (Reason: Diarrhea) dicyclomine 20 mg tablet 20 mg PO QID PRN (Reason: Abdominal Pain) ibuprofen 200 mg Tablet 200 mg PO Q6H PRN (Reason: Pain) ipratropium bromide 42 mcg (0.06 %) spray,non-aerosol 2 spray INTRANASAL TID potassium chloride 10 mEq tablet,ER particles/crystals 10 meq PO DAILY Qty: 3 0RF Discharge Orders: Discharge ED (Routine); Ordered 12/24/22 Ordered By: Ayo Ruggiero Referrals: Bridget Millan PA [Primary Care Provider] - Patient Instructions: Opioid Safety, Pain Management Activity Restrictions/Additional Instructions: You were seen today for upper respiratory infection. Your exam is normal recommend that you continue supportive cares and follow with your primary care doctor. Coding Level of Care Code ED Bead Wire Insulator for Sherice Fwd Exam Comprehensive
[2022-12-24 17:00] VITALS: PULSE 84; RESP 16; O2SAT 96
== END 2022-12-24 17:01 | disposition home or self-care (01) ==
LOC: ER 16:46
PROVIDERS: Emergency Provider Family Medicine; PCP Physician Assistant
DX: B34.9 Viral infection, unspecified (principal); F84.5 Asperger's syndrome
CPT/HCPCS: 99282

== ENCOUNTER 2023-01-08 13:17 | Outpatient (CLI) | payer MEDICAID, SELFPAY ==
[2023-01-08 13:41] VITALS: BP 146/94; PULSE 92
--- NOTE | 2023-01-08 13:47 | US_ITS ---
WS: [id number] Limited pelvic ultrasound. HISTORY: Evaluate . COMPARISON: None. This is a very limited evaluation of the pelvic structures due to body habitus. No transvaginal imagi ng is submitted. There is a midline uterus which is not well visualized due to nondistended urinary bladder. This stud y is not adequate to exclude an early intrauterine gestation. The endometrium is not visualized. Neit her ovary is visualized. No free fluid. US/US [place] limited [id number] IMPRESSION: 1. Very limited evaluation of the pelvic structures. 2. Cannot exclude early intrauterine gestation or ectopic on this ev aluation. When the patient is able recommend transvaginal pelvic ultrasound magui luation.
[2023-01-08 13:56] VITALS: BP 149/98; PULSE 91
--- NOTE | 2023-01-08 14:18 | PC.NURSE ---
Pt presented to L&D reporting her christine broaliya. Pt was initially unable to give due date. Pt was taken to room and attempted to place on US for FHT. Unable to find heart tones. When asked again her due date pt reports here pretty soon . I asked, You don't know when you due date is? Pt responded its in January. I asked what day and pt reported February 10. I asked pt when her last period was she reported September. I asked when she had a positive test, pt reported November 13. I discussed with pt that if her LMP was in September, and her positive test is in October, that there is no way she can be due in January because gestational period is 9 months. Pt reported, I know . I asked pt who her doctor was and she didn't remember the doctors name. She reported she saw her doctor 2 weeks ago. I asked pt if she knew she had an appointment today at [facility] at 1000 and she stated she slept in and didn't have a ride. When asked how she got to the hospital she reported she walked here. I pulled up pt chart and showed her that the last time she was seen by a doctor here was in the ER at the end of November. I asked pt if it was an [facility] clinic and she said no. I asked what clinic and she reported [facility]. I asked Jossy where and she reported [place]. I stated, So you last saw a doctor 2 weeks ago at [facility], but you don't remember theh Doctors name. If I call [facility] they will be able to tell me when you were there and when your due date is. Pt reported yes. US was done and uterus was empty. Discussed with pt that there is no baby in her uterus, and she had a negative test on December 22, 2022 in the ER. I told pt that she is not . Pt replied, OK and got dressed and left.
--- NOTE | 2023-01-08 15:08 | PC.NURSE ---
Dr. Harrison notified at 1416 that ultrasound showed empty uterus; reported that pt had a negative urine HCG on December 22, 2022 in ER. Received order to discharge pt.
== END 2023-01-08 14:17 | disposition home or self-care (01) ==
LOC: OPOB 13:24 → OBGYN 13:25
PROVIDERS: PCP Physician Assistant; Visit Provider Obstetrics & Gynecology
DX: O26.899 Other specified pregnancy related conditions, unspecified trimester (principal); Z3A.00 Weeks of gestation of pregnancy not specified; N89.8 Other specified noninflammatory disorders of vagina
CPT/HCPCS: 76815

== ENCOUNTER → 2023-01-27 13:55 | Outpatient (BNVA) | payer MEDICAID, SELFPAY | PROVIDERS: PCP Physician Assistant; Referring Provider Physician Assistant; Visit Provider Specialist | DX: R20.0 Anesthesia of skin (principal); R20.2 Paresthesia of skin | CPT/HCPCS: 95908; 95909 ==

== ENCOUNTER 2023-03-02 14:44 | Inpatient (IN) | payer MEDICAID, SELFPAY ==
[2023-03-02 15:00] VITALS: BP 163/121; PULSE 107; RESP 18; TEMP 36.6; O2SAT 97; BMI 29.2
--- NOTE | 2023-03-02 15:04 | W.ED.PSYCHS ---
Documented by User: RICKEY Evans 03/02/23 16:49 HPI - Psych General: Chief Complaint: Psychiatric Symptoms Stated Complaint: PSYCH EVAL Time Seen by Provider: 03/02/23 14:50 Source: patient and EMS Mode of arrival: EMS Limitations: no limitations History of Present Illness: Patient is a 22-year-old female presents to ED today on a 96-hour hold after her boyfriend contacted the crisis stabilization center after patient told him she was hearing voices that were telling her to harm herself. According to the affidavit filed from the crisis center, they spoke with patient directly, who told them that she feels she wants to harm herself. I asked patient multiple times during my examination whether she felt like she was acutely suicidal and she seemed to flip-flop with her answers sometimes responding no and other times responding yes I think so. Patient does report previous suicide attempts most recently few months ago via overdose. She states she has no history of auditory hallucinations. Denies visual hallucinations. She states she sees Zuleika Senior at [facility] [place] but has been off of her medications over the past 2 months. MD complaint: suicidal ideation Onset (ago): hour(s) Duration: intermittent and changing over time History of same: Yes Exacerbating factors: none Context: not taking psychiatric medications Associated psychiatric symptoms: depression, suicidal ideation and auditory hallucinations Associated symptoms: Reports auditory hallucinations, depression and suicidal ideation; Deny visual hallucinations or homicidal ideation Treatments prior to arrival: none and placed on mental health hold If self harm: admits thoughts of self harm Review of Systems Const: Denies: fever(s) or chills Card: Denies: chest pain, palpitations, lightheadedness or syncope Resp: Denies: dyspnea GI: Denies: abdominal pain, nausea, vomiting or diarrhea Skin/Breast: Denies: rash Neuro: Denies: headache(s) Psych: Reports: depression, auditory hallucinations and suicidal ideation; Denies: anxiety, irritability, paranoia, visual hallucinations or homicidal ideation [facility] ED PFSH: Medical History Acute cystitis Asperger's syndrome Attention-deficit hyperactivity disorder, combined type Borderline intellectual functioning Epiploic appendagitis Generalized anxiety disorder Intractable vomiting Major depression, recurrent Psychiatric care Pyelonephritis Family History Other Cancer Diabetes Heart disease Seizure Denies family history of Colon cancer Ovarian cancer Breast cancer Family history of thyroid problem Hypertension Uterine cancer Stroke Hyperchloremia Physical Exam Const: COMMON NORMALS: no acute distress, patient oriented x3, alert and well nourished GENERAL APPEARANCE: cooperative and well kempt Resp: COMMON NORMALS: normal respiratory effort and clear to auscultation bilaterally AUSCULTATION: clear to auscultation bilaterally Cardio: COMMON NORMALS: regular rate and regular rhythm RATE: regular rate RHYTHM: regular rhythm Neuro: CHING COMA SCALE: document GCS findings [place] coma scale eye opening: Spontaneous Ching coma scale verbal response: Orientated Ching coma scale motor response: Obey commands Ching coma scale total score: 15 COMMON NORMALS: patient oriented x3, moves all extremities, no focal motor deficits and no sensory deficits noted SENSORIUM/ORIENTATION: Yes alert Psych: COMMON NORMALS: mental status grossly normal, Normal thought process present, cooperative, normal affect, speech normal, activity/motor behavior normal and denies homicidal ideation APPEARANCE: Yes grossly normal and Yes well kempt ATTITUDE: Yes calm ACTIVITY/MOTOR BEHAVIOR: No psychomotor agitation and Yes Avoids eye contact (attititude/behavior) SPEECH: Yes normal speech MOOD & AFFECT: Yes euthymic mood THOUGHT PROCESS: Normal thought process present ATTENTION/CONCENTRATION: Yes attention grossly intact and Yes concentration grossly intact MEMORY/COGNITION: Yes memory grossly intact and Yes cognition grossly intact INSIGHT: Fair insight present (Psych) JUDGEMENT: Fair judgement present (Psych) Course Consultations: Consultation #1: Dr. Goddard-accepts to NPU Vital Signs: Vital signs: Vital Signs Temperature 98.1 F 03/03/23 16:04 Pulse Rate 117 H 03/03/23 16:04 Respiratory Rate 16 03/03/23 16:04 Blood Pressure 141/85 03/03/23 16:04 Pulse Oximetry 97 03/03/23 16:04 Oxygen Delivery Me thod Room Air 03/03/23 14:00 MDM - Psych Medical Decision Making Patient will be an admit to NPU on a 96-hour hold for treatment and evaluation of depression, suicidal ideations, auditory loose Nations. Lab Data 03/02/23 15:00 03/02/23 15:00 Laboratory Results WBC 12.0 10^3/uL (4.0-10.0) H 03/02/23 15:00 RBC 5.23 10^6/uL (4.1-5.3) 03/02/23 15:00 Hgb 14.7 g/dL (11.5-15.3) 03/02/23 15:00 Hct 44.4 % (37.0-47.0) 03/02/23 15:00 MCV 84.9 fl (81-99) 03/02/23 15:00 MCH 28.1 pg (28.0-34.0) 03/02/23 15:00 MCHC 33.1 g/dL (30.0-36.0) 03/02/23 15:00 RDW 13.2 % (12.1-15.1) 03/02/23 15:00 Plt Count 360 10^3/cmm (130-400) 03/02/23 15:00 MPV 9.1 fL (7.4-10.4) 03/02/23 15:00 Neut % (Auto) 58.8 % 03/02/23 15:00 Lymph % (Auto) 29.0 % 03/02/23 15:00 Fallon % (Auto) 8.0 % 03/02/23 15:00 Eos % (Auto) 2.7 % 03/02/23 15:00 Baso % (Auto) 0.8 % 03/02/23 15:00 Neut # (Auto) 7.04 10^3/uL (1.8-7.7) 03/02/23 15:00 Lymph # (Auto) 3.5 10^3/uL (0.8-4.8) 03/02/23 15:00 Fallon # (Auto) 1.0 10^3/uL (0.2-0.9) H 03/02/23 15:00 Eos # (Auto) 0.3 10^3/uL (0.0-0.8) 03/02/23 15:00 Baso # (Auto) 0.1 10^3/uL (0.0-0.1) 03/02/23 15:00 Nucleated RBC % (auto) 0 % 03/02/23 15:00 Nucleated RBCs # 0.0 /100WBC 03/02/23 15:00 Sodium 130 mmol/L (136-145) L 03/02/23 15:00 Potassium 4.0 mmol/L (3.5-5.1) 03/02/23 15:00 Chloride 95 mmol/L (98-107) L 03/02/23 15:00 Carbon Dioxide 23 mmol/L (22-29) 03/02/23 15:00 Anion Gap 16.0 (5-19) 03/02/23 15:00 BUN 7 mg/dL (6-20) 03/02/23 15:00 Creatinine 0.5 mg/dL (0.5-0.9) 03/02/23 15:00 GFR Calculation 151.6 mL/min (90-130) H 03/02/23 15:00 Glucose 106 mg/dL (65-115) 03/02/23 15:00 Calculated Osmolality 268 mOsm/kg (285-295) L 03/02/23 15:00 Calcium 10.0 mg/dL (8.5-10.5) 03/02/23 15:00 Total Bilirubin 0.4 mg/dL (0.15-1.2) 03/02/23 15:00 AST 74 U/L (0-32) H 03/02/23 15:00 ALT 94 U/L (0-33) H 03/02/23 15:00 Alkaline Phosphatase 127 U/L (35-105) H 03/02/23 15:00 Total Protein 7.6 g/dL (6.6-8.7) 03/02/23 15:00 Albumin 4.4 g/dL (3.5-5.2) 03/02/23 15:00 Globulin 3.2 g/dL (1.3-4.6) 03/02/23 15:00 HCG, Qual Negative (Negative) 03/02/23 15:00 Salicylates < 0.3 mg/dL (3-10) L 03/02/23 15:00 Urine Opiates Screen Negative ng/mL (Negative) 03/02/23 15:05 Acetaminophen < 5.0 ug/mL (10-30) L 03/02/23 15:00 Ur Barbiturates Screen Negative ng/mL (Negative) 03/02/23 15:05 Ur Phencyclidine Scrn Negative ng/mL (Negative) 03/02/23 15:05 Ur Amphetamines Screen Negative ng/mL (Negative) 03/02/23 15:05 U Benzodiazepines Scrn Negative ng/mL (Negative) 03/02/23 15:05 Urine Cocaine Screen Negative ng/mL (Negative) 03/02/23 15:05 U Marijuana (THC) Screen Negative ng/mL (Negative) 03/02/23 15:05 Ethyl Alcohol < 10 mg/dL (0-10) 03/02/23 15:00 Discharge Plan Discharge Patient Disposition: Admitted As Inpatient Admit Provider: Alex Goddard Clinical Impression: Auditory hallucinations, Suicidal ideation Condition: Stable Discharge Diet: Advance as tolerated Discharge Activity: Resume usual activity Coding Level of Care Code ED Source Water Protection Specialist for Chg Fwd Documented by User: Faustino Solis MD 03/13/23 03:27 HPI - Psych General: Chief Complaint: Psychiatric Symptoms Stated Complaint: PSYCH EVAL Time Seen by Provider: 03/02/23 14:50 PFSH ED PFSH: Medical History Acute cystitis Asperger's syndrome Attention-deficit hyperactivity disorder, combined type Borderline intellectual functioning Epiploic appendagitis Generalized anxiety disorder Intractable vomiting Major depression, recurrent Psychiatric care Pyelonephritis Family History Other Cancer Diabetes Heart disease Seizure Denies family history of Colon cancer Ovarian cancer Breast cancer Family history of thyroid problem Hypertension Uterine cancer Stroke Hyperchloremia Physical Exam Neuro: CHING COMA SCALE: document GCS findings Ching coma scale total score: 15 Course Vital Signs: Vital signs: Vital Signs Temperature 98.1 F 03/03/23 16:04 Pulse Rate 117 H 03/03/23 16:04 Respiratory Rate 16 03/03/23 16:04 Blood Pressure 141/85 03/03/23 16:04 Pulse Oximetry 97 03/03/23 16:04 Oxygen Delivery Me thod Room Air 03/03/23 14:00 MDM - Psych Medical Decision Making Patient will be an admit to NPU on a 96-hour hold for treatment and evaluation of depression, suicidal ideations, auditory loose Nations. I discussed this case with RICKEY Evans. Faustino Solis MD Emergency Medicine Lab Data 03/02/23 15:00 03/02/23 15:00 Laboratory Results WBC 12.0 10^3/uL (4.0-10.0) H 03/02/23 15:00 RBC 5.23 10^6/uL (4.1-5.3) 03/02/23 15:00 Hgb 14.7 g/dL (11.5-15.3) 03/02/23 15:00 Hct 44.4 % (37.0-47.0) 03/02/23 15:00 MCV 84.9 fl (81-99) 03/02/23 15:00 MCH 28.1 pg (28.0-34.0) 03/02/23 15:00 MCHC 33.1 g/dL (30.0-36.0) 03/02/23 15:00 RDW 13.2 % (12.1-15.1) 03/02/23 15:00 Plt Count 360 10^3/cmm (130-400) 03/02/23 15:00 MPV 9.1 fL (7.4-10.4) 03/02/23 15:00 Neut % (Auto) 58.8 % 03/02/23 15:00 Lymph % (Auto) 29.0 % 03/02/23 15:00 Fallon % (Auto) 8.0 % 03/02/23 15:00 Eos % (Auto) 2.7 % 03/02/23 15:00 Baso % (Auto) 0.8 % 03/02/23 15:00 Neut # (Auto) 7.04 10^3/uL (1.8-7.7) 03/02/23 15:00 Lymph # (Auto) 3.5 10^3/uL (0.8-4.8) 03/02/23 15:00 Fallon # (Auto) 1.0 10^3/uL (0.2-0.9) H 03/02/23 15:00 Eos # (Auto) 0.3 10^3/uL (0.0-0.8) 03/02/23 15:00 Baso # (Auto) 0.1 10^3/uL (0.0-0.1) 03/02/23 15:00 Nucleated RBC % (auto) 0 % 03/02/23 15:00 Nucleated RBCs # 0.0 /100WBC 03/02/23 15:00 Sodium 130 mmol/L (136-145) L 03/02/23 15:00 Potassium 4.0 mmol/L (3.5-5.1) 03/02/23 15:00 Chloride 95 mmol/L (98-107) L 03/02/23 15:00 Carbon Dioxide 23 mmol/L (22-29) 03/02/23 15:00 Anion Gap 16.0 (5-19) 03/02/23 15:00 BUN 7 mg/dL (6-20) 03/02/23 15:00 Creatinine 0.5 mg/dL (0.5-0.9) 03/02/23 15:00 GFR Calculation 151.6 mL/min (90-130) H 03/02/23 15:00 Glucose 106 mg/dL (65-115) 03/02/23 15:00 Calculated Osmolality 268 mOsm/kg (285-295) L 03/02/23 15:00 Calcium 10.0 mg/dL (8.5-10.5) 03/02/23 15:00 Total Bilirubin 0.4 mg/dL (0.15-1.2) 03/02/23 15:00 AST 74 U/L (0-32) H 03/02/23 15:00 ALT 94 U/L (0-33) H 03/02/23 15:00 Alkaline Phosphatase 127 U/L (35-105) H 03/02/23 15:00 Total Protein 7.6 g/dL (6.6-8.7) 03/02/23 15:00 Albumin 4.4 g/dL (3.5-5.2) 03/02/23 15:00 Globulin 3.2 g/dL (1.3-4.6) 03/02/23 15:00 HCG, Qual Negative (Negative) 03/02/23 15:00 Salicylates < 0.3 mg/dL (3-10) L 03/02/23 15:00 Urine Opiates Screen Negative ng/mL (Negative) 03/02/23 15:05 Acetaminophen < 5.0 ug/mL (10-30) L 03/02/23 15:00 Ur Barbiturates Screen Negative ng/mL (Negative) 03/02/23 15:05 Ur Phencyclidine Scrn Negative ng/mL (Negative) 03/02/23 15:05 Ur Amphetamines Screen Negative ng/mL (Negative) 03/02/23 15:05 U Benzodiazepines Scrn Negative ng/mL (Negative) 03/02/23 15:05 Urine Cocaine Screen Negative ng/mL (Negative) 03/02/23 15:05 U Marijuana (THC) Screen Negative ng/mL (Negative) 03/02/23 15:05 Ethyl Alcohol < 10 mg/dL (0-10) 03/02/23 15:00 Discharge Plan Discharge Patient Disposition: Admitted As Inpatient Admit Provider: Alex Goddard Clinical Impression: Auditory hallucinations, Suicidal ideation Condition: Stable Discharge Diet: Advance as tolerated Discharge Activity: Resume usual activity Coding Level of Care Code ED Source Water Protection Specialist for Sherice Jaramillo
[2023-03-02 15:11] LABS: Basophils # 0.1 10^3/uL (0.0-0.1); Basophils % 0.8 %; Eosinophils # 0.3 10^3/uL (0.0-0.8); Eosinophils % 2.7 %; Hematocrit 44.4 % (37.0-47.0); Hemoglobin 14.7 g/dL (11.5-15.3); Lymphocytes # 3.5 10^3/uL (0.8-4.8); Mean Corpuscular HGB Conc 33.1 g/dL (30.0-36.0); Mean Corpuscular Hemoglobin 28.1 pg (28.0-34.0); Mean Corpuscular Volume 84.9 fl (81-99); Mean Platelet Volume 9.1 fL (7.4-10.4); Neutrophils # 7.04 10^3/uL (1.8-7.7); Neutrophils % 58.8 %; Nucleated Red Blood Cells % 0 %; Platelet Count 360 10^3/cmm (130-400); Red Blood Count 5.23 10^6/uL (4.1-5.3); Red Cell Distribution Width 13.2 % (12.1-15.1)
[2023-03-02 15:32] LABS: HCG, Serum Qual Negative (Negative)
[2023-03-02 15:38] LABS: Alanine Aminotransferase 94 U/L (0-33); Albumin Level 4.4 g/dL (3.5-5.2); Alkaline Phosphatase 127 U/L (35-105); Aspartate Amino Transferase 74 U/L (0-32); Blood Urea Nitrogen 7 mg/dL (6-20); Carbon Dioxide 23 mmol/L (22-29); Chloride 95 mmol/L (98-107); Globulin 3.2 g/dL (1.3-4.6); Glomerular Filtration Rate 151.6 mL/min (90-130); Glucose 106 mg/dL (65-115); Osmolality Calculated 268 mOsm/kg (285-295); Sodium 130 mmol/L (136-145); Total Bilirubin 0.4 mg/dL (0.15-1.2); Total Protein 7.6 g/dL (6.6-8.7)
[2023-03-02 15:39] LABS: Acetaminophen < 5.0 ug/mL (10-30); Alcohol Level < 10 mg/dL (0-10); Salicylate < 0.3 mg/dL (3-10)
[2023-03-02 15:46] LABS: Amphetamines Screen Urine Negative (Negative); Barbiturates Screen Urine Negative (Negative); Benzodiazepines Screen Urine Negative (Negative); Cocaine Screen Urine Negative (Negative); Opiate Screen Urine Negative (Negative); PCP Screen Urine Negative (Negative); THC Screen Urine Negative (Negative)
[2023-03-02 16:00] VITALS: BP 158/101; PULSE 90; RESP 16; O2SAT 97
[2023-03-02 18:18] VITALS: BP 150/101; PULSE 103; RESP 18; TEMP 36.4; O2SAT 96
[2023-03-02] MEDS: trazodone 50 mg Tablet PO (19:59)
[2023-03-02] MEDS: acetaminophen 325 mg Tablet 650 MG PO (19:59)
--- NOTE | 2023-03-02 20:05 | PC.NURSE ---
PRN trazodone for sleep and Ibuprofen for headache given as ordered per pt request.
[2023-03-02 20:08] VITALS: BP 132/84; PULSE 104; RESP 16; O2SAT 93
[2023-03-03 06:00] VITALS: BP 130/76; PULSE 104; RESP 16; TEMP 36.5; O2SAT 98
[2023-03-03] MEDS: sertraline 100 mg Tablet PO (08:00)
[2023-03-03] MEDS: spironolactone 25 mg Tablet PO (08:00)
[2023-03-03] MEDS: risperiDONE 2 mg Tablet PO (08:00)
[2023-03-03] MEDS: venlafaxine ER (24HR) 150 mg Capsule PO (08:00)
--- NOTE | 2023-03-03 08:51 | P.NPUHP_ITS ---
Providers/Chief Complaint Admitting Physician: Alex Goddard MD Primary Care Provider: Bridget Millan Chief Complaint: PSYCH EVAL HPI NPU History of Present Illness Ella Swain is a 22 year old female who was initially presented to the emergency department on a 96-hour hold after the patient's boyfriend had contacted the crisis stabilization center and stated that the patient had told him that she was hearing voices telling her to harm herself. It had been reported that she had not been taking her psychiatric medication for several months. She had been admitted to the neuropsychiatric unit for further treatment and evaluation. The patient has a history of borderline intellectual functioning generalized anxiety disorder and major depressive disorder with psychotic features. On interview, the patient reports that she has been compliant with her medications and states that she is not having current thoughts of hurting herself. She reports that she had heard voices before in the past but states that there had been changes to her medication regimen and that she had been compliant to these changes. She reports no hallucinations. She states that she had had an argument with her boyfriend and her boyfriend had wanted her to come into the hospital so that he could stay at her place longer. The patient had reported that her parents were angry at Diana's boyfriend and had felt that Mervat should be able to come home. She denies any current suicidal or homicidal thoughts. She had reported a past history of depressed mood but states that her mood has been better recently. She has endorsed a past history of chronic anxiety and difficulties with controlling her worries. She had reported having difficulties with falling asleep and reported having problems in the past with being irritable and easily frustrated. Previous re cords had indicated a past history of Asperger's disorder. Past psychiatric history: She reports a past history of 4 inpatient psychiatric hospitalizations with her most recent hospitalization occurring in January in [facility]. She reports that she had been receiving outpatient treatment at [facility] under the care of Jennifer Wong with her most recent follow-up having occurred on February 18, 2023. She has a past history of having overdosed on ibuprofen leading to hospitalization in [place]. Current Medications: Effexor 150mg in am, Family history: None Medical history: Knee contusion, Acute cystitis, intractable vomiting, pyelonephritis, borderline intellectual functioning surgical history none Allergies: Codeine gluten Drug and alcohol history: None Social history: She is currently living with her biological parents. She reports that she has a boyfriend who she had previously been living with. She had received a special diploma from high school and had been receiving special education services with a reported history of having problems with learning. Previous records that indicated a diagnosis of Asperger's disorder Meds NPU Home Medications Medication Instructions Recorded Confirmed Last Taken Type albuterol sulfate 90 mcg/actuation 2 puff inhalation Q4H PRN 12/05/22 03/02/23 Unknown Rx aerosol inhaler shortness of breath or wheezing #8.5 grams sertraline 100 mg tablet (Zoloft) 100 mg PO DAILY #30 tabs 01/28/23 03/02/23 03/02/23 Rx risperidone 2 mg tablet 2 mg PO BID 03/02/23 03/02/23 Unknown History spironolactone 25 mg tablet 25 mg PO DAILY 03/02/23 03/02/23 03/02/23 History venlafaxine 150 mg 150 mg PO DAILY 03/02/23 03/02/23 Unknown History capsule,extended release 24 hr Allergies Allergy/AdvReac Type Severity Reaction Status Date / Time codeine Allergy nausea Verified 01/27/23 15:24 gluten Allergy swellin, Verified 01/27/23 15:24 cranky, stomach pains, diarrhea PFSH NPU PFSH: Medical History Acute cystitis Asperger's syndrome Attention-deficit hyperactivity disorder, combined type Borderline intellectual functioning Epiploic appendagitis Generalized anxiety disorder Intractable vomiting Major depression, recurrent Psychiatric care Pyelonephritis Family History Other Cancer Diabetes Heart disease Seizure Denies family history of Colon cancer Ovarian cancer Breast cancer Family history of thyroid problem Hypertension Uterine cancer Stroke Hyperchloremia Mental Status Exam MSE Comments: This is a overweight versus obese white female in hospital scrubs with limited grooming and eye contact. No abnormal movements. Cooperative with exam in no acute distress. Speech was slightly decreased rate and volume and childlike. Mood described as good, affect congruent. Thought process, organized. Thought content: patient denies any suicidal or homicidal ideation, no delusions reported or noted, and denies any auditory or visual hallucinations. Attention and concentration were intact and memory is reliable but none were formally tested. She is alert and oriented three times. Insight and judgment are limited. Impulse control is limited. Intellectual ability is suggestive of mild cognitive impairment. Cognition: Patient Appearance: Appropriate Level of Consciousness: Awake, Alert, Appropriate and Follows Commands Patient Cognition Impaired: No Ability to Follow Directions: Good Patient Orientation (long list): Person, Place, Name, Age and Birthday Comprehension Ability: Mild Impairment Hallucination Type: None Delusion Description: Not Present Thought Process: Appropriate Affect: Affect Description: Appropriate and Calm Depressive Symptoms: Insomnia, Increased Anxiety and Increased Fatigue Behavior: Patient Behavior: Appropriate and Cooperative Speech Pattern: Appropriate and Clear Vitals/I&O/Wt Last Vital Signs Temp 97.7 F 03/03/23 06:00 Pulse 104 H 03/03/23 06:00 Resp 16 03/03/23 06:00 BP 130/76 03/03/23 06:00 Pulse Ox 98 03/03/23 06:00 O2 Del Method 03/03/23 06:00 Weight last 48 hrs Weight 77.111 kg Data NPU 03/02/23 15:00 03/02/23 15:00 A&P Assessment and plan (1) Auditory hallucinations: (2) Major depression, recurrent: (3) Suicidal ideation: (4) Generalized anxiety disorder: Plan This is a 22-year-old white female with mild cognitive impairment along with anxiety and depressed mood who was admitted involuntarily on the basis of reports of hearing voices. Patient is denying any of this at this time and appears to be currently minimizing these symptoms. 1. Restart effexor xr 150mg in am 2. Engage patient in individual milieu and group therapy. #3. Continue every 15 minute checks for safety. 4. Attempt to gather collateral information from previous providers. Involuntary Hold Information 96 Hour Hold: 96 Hour Involuntary Admission: Yes 96 Hour Hold Ending Date: 03/07/23 96 Hour Hold Ending Time: 00:01 Attestations NPU Medical Necessity Statement*: Inpatient hospitalization is medically necessary and deemed to be the clinically appropriate decision at this time. We will make changes with medications as indicated. She will be in the hospital for over 2 midnights with a likely length of stay of 2 to 3 days. Coding Level of Care Code Acute Code for [facility] Diagnoses Auditory hallucinations R44.0 Major depression, recurrent F33.9 Suicidal ideation R45.851 Generalized anxiety disorder F41.1
[2023-03-03 14:00] VITALS: BP 146/99; PULSE 105; RESP 16; TEMP 36.8; O2SAT 98
--- NOTE | 2023-03-03 15:33 | W.PM.NPUDCS ---
Diagnoses at Discharge Discharge Diagnosis (1) Auditory hallucinations: Status: Acute (2) Major depression, recurrent: Status: Acute (3) Suicidal ideation: Status: Acute (4) Generalized anxiety disorder: Status: Acute Reason for Visit Reason for Visit: PSYCH EVAL Brief History: History of Present Illness Ella Swain is a 22 year old female who was initially presented to the emergency department on a 96-hour hold after the patient's boyfriend had contacted the crisis stabilization center and stated that the patient had told him that she was hearing voices telling her to harm herself.? It had been reported that she had not been taking her psychiatric medication for several months.? She had been admitted to the neuropsychiatric unit for further treatment and evaluation.? The patient has a history of borderline intellectual functioning generalized anxiety disorder and major depressive disorder with psychotic features.? On interview, the patient reports that she has been compliant with her medications and states that she is not having current thoughts of hurting herself.? She reports that she had heard voices before in the past but states that there had been changes to her medication regimen and that she had been compliant to these changes.? She reports no hallucinations.? She states that she had had an argument with her boyfriend and her boyfriend had wanted her to come into the hospital so that he could stay at her place longer.? The patient had reported that her parents were angry at Diana's boyfriend and had felt that Mervat should be able to come home.? She denies any current suicidal or homicidal thoughts.? She had reported a past history of depressed mood but states that her mood has been better recently.? She has endorsed a past history of chronic anxiety and difficulties with controlling her worries.? She had reported having difficulties with falling asleep and reported having problems in the past with being irritable and easily frustrated.? Previous records had indicated a past history of Asperger's disorder. Past psychiatric history: She reports a past history of 4 inpatient psychiatric hospitalizations with her most recent hospitalization occurring in January in [facility].? She reports that she had been receiving outpatient treatment at [facility] under the care of Jennifer Wong with her most recent follow-up having occurred on February 18, 2023.? She has a past history of having overdosed on ibuprofen leading to hospitalization in [place]. Current Medications: Effexor 150mg in am, Spironolactone 25mg, Family history: None Medical history: Knee contusion, Acute cystitis, intractable vomiting, pyelonephritis, borderline intellectual functioning ?surgical history none Allergies: Codeine gluten Drug and alcohol history: None Social history: She is currently living with her biological parents.? She reports that she has a boyfriend who she had previously been living with.? She had received a special diploma from high school and had been receiving special education services with a reported history of having problems with learning.? Previous records that indicated a diagnosis of Asperger's disorder Hospital Course Hospital Course During the hospitalization, patient had routine laboratory studies which were within normal limits except for few outliers. Additionally there was a general medical evaluation which was also within normal limits and revealed no new acute processes. At the time of discharge, lethality was denied and psychosis was resolving. Mood and anxiety were well managed. Patient endorsed a plan to avoid all drugs of abuse and follow-up with the aftercare recommendations of the treatment team. Patient was evaluated and deemed to be absent credible lethality, and had achieved the maximum benefit from an inpatient hospitalization, so was discharged. Involuntary Hold Information 96 Hour Hold: 96 Hour Involuntary Admission: Yes 96 Hour Hold Ending Date: 03/07/23 96 Hour Hold Ending Time: 00:01 Mental Status Exam MSE Comments: This is a overweight versus obese white female in hospital scrubs with limited grooming and eye contact. No abnormal movements. Cooperative with exam in no acute distress. Speech was slightly decreased rate and volume and childlike. Mood described as good, affect congruent. Thought process, organized. Thought content: patient denies any suicidal or homicidal ideation, no delusions reported or noted, and denies any auditory or visual hallucinations. Attention and concentration were intact and memory is reliable but none were formally tested. She is alert and oriented three times. Insight and judgment are limited. Impulse control is limited. Intellectual ability is suggestive of mild cognitive impairment. Cognition: Patient Cognition Impaired: No Patient Orientation (long list): Person, Place, Name, Age and Birthday Comprehension Ability: Mild Impairment Hallucination Type: None Delusion Description: Not Present Thought Process: Appropriate Affect: Depressive Symptoms: Insomnia, Increased Anxiety and Increased Fatigue Behavior: Speech Pattern: Appropriate and Clear Discharge Data Studies Completed and Pending: Laboratory Results WBC 12.0 10^3/uL (4.0 -10.0) H 03/02/23 15:00 RBC 5.23 10^6/uL (4.1 -5.3) 03/02/23 15:00 Hgb 14.7 g/dL (11.5-1 5.3) 03/02/23 15:00 Hct 44.4 % (37.0-47.0 ) 03/02/23 15:00 MCV 84.9 fl (81-99) 03/02/23 15:00 MCH 28.1 pg (28.0-34. 0) 03/02/23 15:00 MCHC 33.1 g/dL (30.0-3 6.0) 03/02/23 15:00 RDW 13.2 % (12.1-15.1 ) 03/02/23 15:00 Plt Count 360 10^3/cmm (130 -400) 03/02/23 15:00 MPV 9.1 fL (7.4-10.4) 03/02/23 15:00 Neut % (Auto) 58.8 % 03/02/23 15:00 Lymph % (Auto) 29.0 % 03/02/23 15:00 [place] % (Auto) 8.0 % 03/02/23 15:00 Eos % (Auto) 2.7 % 03/02/23 15:00 Baso % (Auto) 0.8 % 03/02/23 15:00 Neut # (Auto) 7.04 10^3/uL (1.8 -7.7) 03/02/23 15:00 Lymph # (Auto) 3.5 10^3/uL (0.8- 4.8) 03/02/23 15:00 [place] # (Auto) 1.0 10^3/uL (0.2- 0.9) H 03/02/23 15:00 Eos # (Auto) 0.3 10^3/uL (0.0- 0.8) 03/02/23 15:00 Baso # (Auto) 0.1 10^3/uL (0.0- 0.1) 03/02/23 15:00 Nucleated RBC % (a uto) 0 % 03/02/23 15:00 Nucleated RBCs # 0.0 /100WBC 03/02/23 15:00 Sodium 130 mmol/L (136-1 45) L 03/02/23 15:00 Potassium 4.0 mmol/L (3.5-5 .1) 03/02/23 15:00 Chloride 95 mmol/L (98-107 ) L 03/02/23 15:00 Carbon Dioxide 23 mmol/L (22-29) 03/02/23 15:00 Anion Gap 16.0 (5-19) 03/02/23 15:00 BUN 7 mg/dL (6-20) 03/02/23 15:00 Creatinine 0.5 mg/dL (0.5-0. 9) 03/02/23 15:00 GFR Calculation 151.6 mL/min (90- 130) H 03/02/23 15:00 Glucose 106 mg/dL (65-115 ) 03/02/23 15:00 Calculated Osmolal ity 268 mOsm/kg (285- 295) L 03/02/23 15:00 Calcium 10.0 mg/dL (8.5-1 0.5) 03/02/23 15:00 Total Bilirubin 0.4 mg/dL (0.15-1 .2) 03/02/23 15:00 AST 74 U/L (0-32) H 03/02/23 15:00 ALT 94 U/L (0-33) H 03/02/23 15:00 Alkaline Phosphata se 127 U/L (35-105) H 03/02/23 15:00 Total Protein 7.6 g/dL (6.6-8.7 ) 03/02/23 15:00 Albumin 4.4 g/dL (3.5-5.2 ) 03/02/23 15:00 Globulin 3.2 g/dL (1.3-4.6 ) 03/02/23 15:00 HCG, Qual Negative (Negati ve) 03/02/23 15:00 Salicylates < 0.3 mg/dL (3-10 ) L 03/02/23 15:00 Urine Opiates Scre en Negative ng/mL (N egative) 03/02/23 15:05 Acetaminophen < 5.0 ug/mL (10-3 0) L 03/02/23 15:00 Ur Barbiturates Sc reen Negative ng/mL (N egative) 03/02/23 15:05 Ur Phencyclidine S crn Negative ng/mL (N egative) 03/02/23 15:05 Ur Amphetamines Sc reen Negative ng/mL (N egative) 03/02/23 15:05 U Benzodiazepines Scrn Negative ng/mL (N egative) 03/02/23 15:05 Urine Cocaine Scre en Negative ng/mL (N egative) 03/02/23 15:05 U Marijuana (THC) Screen Negative ng/mL (N egative) 03/02/23 15:05 Ethyl Alcohol < 10 mg/dL (0-10) 03/02/23 15:00 Vitals: Last Vital Signs Temp 98.3 F 03/03/23 14:00 Pulse 105 H 03/03/23 14:00 Resp 16 03/03/23 14:00 BP 146/99 03/03/23 14:00 Pulse Ox 98 03/03/23 14:00 O2 Del Method 03/03/23 14:00 Discharge Plan Discharge Patient Disposition: Home Condition: Stable Prescriptions: Continued albuterol sulfate 90 mcg/actuation HFA aerosol inhaler 2 puff inhalation Q4H PRN (Reason: shortness of breath or wheezing) Qty: 8.5 1RF spironolactone 25 mg Tablet 25 mg PO DAILY venlafaxine 150 mg Capsule,Extended Release 24hr 150 mg PO DAILY risperidone 2 mg Tablet 2 mg PO BID Discontinued sertraline [Zoloft] 100 mg tablet 100 mg PO DAILY Qty: 30 1RF Discharge Orders: Discharge Order (Routine); Ordered 03/03/23 Ordered By: Vlad Matthews Referrals: Jennifer Tapia PMHNP [Staff Physician] - 03/07/23 2:45 pm Bridget Millan PA [Primary Care Provider] - Discharge Diet: Advance as tolerated Discharge Activity: Resume usual activity Patient Instructions: Mood Disorders (GEN), Help Prevent Suicide (GEN), Hallucinations (ED), Opioid Safety Discharge Attestations NPU Time Spent in Discharge Care*: less than 30 min Coding Level of Care Code Acute Chg FW DC note Diagnoses Auditory hallucinations R44.0 Major depression, recurrent F33.9 Suicidal ideation R45.851 Generalized anxiety disorder F41.1
[2023-03-03 15:42] VITALS: BP 146/99; PULSE 105; RESP 16; TEMP 36.8; O2SAT 98
[2023-03-03 16:04] VITALS: BP 141/85; PULSE 117; RESP 16; TEMP 36.7; O2SAT 97
== END 2023-03-03 16:50 | disposition home or self-care (01) | DRG 885 ==
LOC: ER 19:43 → NP 23:54
PROVIDERS: Admitting Provider Psychiatry & Neurology Psychiatry; Emergency Provider Physician Assistant; PCP Physician Assistant; Visit Provider Psychiatry & Neurology Psychiatry
DX: F33.3 Major depressive disorder, recurrent, severe with psychotic symptoms (principal); R45.851 Suicidal ideations; R41.83 Borderline intellectual functioning; F41.1 Generalized anxiety disorder; F84.5 Asperger's syndrome; F90.9 Attention-deficit hyperactivity disorder, unspecified type
CPT/HCPCS: 80053; 80306; 80307; 84703; 85025; 97150; 97165; 99285

== ENCOUNTER → 2023-07-22 10:18 | Outpatient (BNVA) | payer MEDICAID, OTHER, SELFPAY | PROVIDERS: PCP Physician Assistant; Visit Provider Nurse Practitioner Women's Health | DX: Z30.9 Encounter for contraceptive management, unspecified (principal) | CPT/HCPCS: 81025 ==

== ENCOUNTER 2023-08-07 09:28 | Outpatient (CLI) | payer MEDICAID, OTHER, SELFPAY ==
--- NOTE | 2023-08-07 09:37 | NM_ITS ---
WS: [id number] NUCLEAR MEDICINE HIDA SCAN WITH GALLBLADDER EJECTION FRACTION HISTORY: ABDOMINAL PAIN COMPARISON: 02/14/2022 TECHNIQUE: The patient was intravenously injected with 7.6 mCi of TC99m Mebrofenin. Immediate imaging over the right upper quadrant was followed by 5 minute image and additional images for a total of 60 minutes. Normal uptake of radiotracer throughout the liver. Liver appears enlarged. Activity identified in the gallbladder at 10 minutes and well distended by 60 minutes. Activity in the proximal small bowel was seen by 40 minutes. Good washout of the radiotracer from the liver by 60 minutes. The patient then drank 8 ounces of Ensure Plus. Ejection fraction at 60 minutes was 33%. Normal GB ej ection fraction is 35-75%. Post fatty meal symptoms: None. IMPRESSION: 1. Normal HIDA scan. 2. Very low normal gallbladder ejection fraction. Gallbladder ejection fraction was normal on the pr ior study of 02/14/2022.
== END 2023-08-07 09:29 | disposition home or self-care (01) ==
LOC: RAD 09:30
PROVIDERS: PCP Physician Assistant; Visit Provider Nurse Practitioner Family
DX: R10.9 Unspecified abdominal pain (principal); R16.0 Hepatomegaly, not elsewhere classified
CPT/HCPCS: 78227; A9537

== ENCOUNTER 2023-08-14 17:45 | Emergency (ER) | payer MEDICAID, SELFPAY ==
[2023-08-14 17:59] VITALS: BP 144/88; PULSE 89; RESP 15; TEMP 36.6; O2SAT 99
--- NOTE | 2023-08-14 19:46 | W.ED.ABDPA2 ---
HPI - Abdominal Pain General: Chief Complaint: Abdominal Pain Stated Complaint: abd pain gallbladder issues Time Seen by Provider: 08/14/23 19:45 History of Present Illness: 22-year-old female comes in today with right upper quadrant abdominal pain. Patient reports a history of recurrent abdominal pain and gallbladder issues. Patient had recently had a HIDA scan done on the which showed a low functioning gallbladder. Patient was going to be scheduled for a gallbladder removal on the but her mother did not want her to get it done and patient did not have it done at that time. Patient reports increasing pain and discomfort. Patient appears nontoxic. Patient appears in mild pain. No signs of gallstones were noted on prior reports. Associated Symptoms: Denies fever(s) Review of Systems General: Reports: 10 or more systems reviewed and unremarkable except in HPI and below Const: Denies: fever(s) GI: Reports: abdominal pain PFS ED PFSH: Medical History Acute cystitis Asperger's syndrome Attention-deficit hyperactivity disorder, combined type Borderline intellectual functioning Epiploic appendagitis Generalized anxiety disorder Intractable vomiting Major depression, recurrent On combination antipsychotic drug therapy Psychiatric care Pyelonephritis Family History Other Cancer Diabetes Heart disease Seizure Denies family history of Colon cancer Ovarian cancer Breast cancer Family history of thyroid problem Hypertension Uterine cancer Stroke Hyperchloremia Physical Exam Const: COMMON NORMALS: alert HENMT: COMMON NORMALS: normocephalic HEAD & SCALP: normocephalic Neck/C-Spine: COMMON NORMALS: full ROM Resp: COMMON NORMALS: normal respiratory effort and clear to auscultation bilaterally AUSCULTATION: clear to auscultation bilaterally Cardio: COMMON NORMALS: regular rate and regular rhythm RATE: regular rate RHYTHM: regular rhythm GI: COMMON NORMALS: Soft to palpation and non-tender PALPATION: Yes Soft to palpation : COMMON NORMALS: Yes no CVA tenderness BLADDER/KIDNEY EXAM: Yes no CVA tenderness Back/Pelvis: COMMON NORMALS: no CVA tenderness and thoracic and lumbar spine normal to inspection Extremity: COMMON NORMALS: normal to inspection Neuro: SENSORIUM/ORIENTATION: Yes alert Skin: COMMON NORMALS: turgor normal GENERAL SKIN EXAM: turgor normal Course Vital Signs: Vital signs: Vital Signs Temperature 97.8 F 08/14/23 17:59 Pulse Rate 93 08/14/23 20:30 Respiratory Rate 15 08/14/23 17:59 Blood Pressure 119/81 08/14/23 20:30 Pulse Oximetry 100 08/14/23 20:30 Oxygen Delivery Me thod Room Air 08/14/23 20:30 MDM - Abdominal Pain Medical Decision Making 22-year-old female comes in today with complaints of gallbladder pain. Patient states that she had been scheduled for gallbladder removal on the but did not have it done because her mother wanted her not to have it done. Patient reports that she has had increasing pain and discomfort since. Patient denies any fever or nausea or vomiting. Patient appears nontoxic. Abdomen soft nontender. Differential diagnosis includes gallbladder colic, choledocholithiasis, malingering, constipation. Laboratory values were unremarkable. Ultrasound of the gallbladder noted no gallbladder wall thickening or signs of cholecystitis. No gallstones were also not seen. Patient left prior to finalization of reports. It had been approximately 1 hour after given dicyclomine and I was not able to reassess for improvement of pain. Patient had told the nurse that she was tired of waiting for results and wanted to go home. I did not see patient prior to leaving. Lab Data 08/14/23 20:22 08/14/23 20:22 Labs/Radiology: Laboratory Results WBC 9.53 10^3/uL (3.29-11.43) 08/14/23 20: RBC 5.20 10^6/uL (3.85-5.65) 08/14/23 20:22 Hgb 15.40 g/dL (11.27-16.99) 08/14/23 20:22 Hct 45.2 % (36-47) 08/14/23 20:22 MCV 86.9 fl (85-98) 08/14/23 20: MCH 29.6 pg (27-33) 08/14/23 20: MCHC 34.1 g/dL (30-55) 08/14/23 20:22 RDW 12.9 % (12.1-15.1) 08/14/23 20: Plt Count 293 10^3/cmm (157-399) 08/14/23 20:22 MPV 9.5 fL (7.4-10.4) 08/14/23 20: Neut % (Auto) 56.0 % 08/14/23 20: Lymph % (Auto) 30.5 % 08/14/23 20: [place] % (Auto) 10.1 % 08/14/23 20: Eos % (Auto) 2.6 % 08/14/23 20: Baso % (Auto) 0.5 % 08/14/23 20: Neut # (Auto) 5.33 10^3/uL (1.8-7.7) 08/14/23 20: Lymph # (Auto) 2.9 10^3/uL (0.8-4.8) 08/14/23 20: [place] # (Auto) 1.0 10^3/uL (0.2-0.9) H 08/14/23 20: Eos # (Auto) 0.3 10^3/uL (0.0-0.8) 08/14/23 20: Baso # (Auto) 0.1 10^3/uL (0.0-0.1) 08/14/23 20: Nucleated RBC % (auto) 0 % 08/14/23: Nucleated RBCs # 0.0 /100WBC 08/14/23 20: Sodium 137 mmol/L (136-145) 08/14/23 20: Chloride 103 mmol/L (98-107) 08/14/23 20: BUN 8 mg/dL (6-20) 08/14/23 20: Creatinine 0.5 mg/dL (0.5-0.9) 08/14/23 20: Calculated Osmolality 287 mOsm/kg (285-295) 08/14/23 20: Calcium 9.7 mg/dL (8.5-10.5) 08/14/23 20: Total Bilirubin 0.4 mg/dL (0.15-1.2) 08/14/23 20: Total Protein 7.7 g/dL (6.6-8.7) 08/14/23 20: Albumin 4.9 g/dL (3.5-5.2) 08/14/23 20: Globulin 2.8 g/dL (1.3-4.6) 08/14/23 20:22 Lipase 29 U/L (13-60) 08/14/23 20:22 Ser , Semi-Qnt Cancelled 08/14/23 19:57 Urine Color Yellow (Yellow) 08/14/23 19:57 Urine Appearance Hazy (CLEAR) A 08/14/23 19:57 Urine pH 5 (5-7) 08/14/23 19:57 Ur Specific [place] 1.025 (1.005-1.030) 08/14/23 19:57 Urine Protein Trace (Negative) 08/14/23 19:57 Urine Glucose (UA) 4+ (Normal) H 08/14/23 19:57 Urine Ketones 1+ (Negative) H 08/14/23 19:57 Urine Blood Neg (Negative) 08/14/23 19:57 Urine Nitrate Negative (Negative) 08/14/23 19:57 Urine Bilirubin Neg (Negative) 08/14/23 19:57 Urine Urobilinogen 1 mg/dL (Negative) H 08/14/23 19:57 Ur Leukocyte Esterase Negative (Negative) 08/14/23 19:57 Urine RBC None /hpf (0-2) 08/14/23 19:57 Urine WBC None /hpf (0-5) 08/14/23 19:57 Ur Squamous Epith Cells 5-10 /hpf (0-5) H 08/14/23 19:57 Calcium Oxalate Crystal 15-25 /hpf H 08/14/23 19:57 Amorphous Sediment Not Reportable 08/14/23 19:57 Urine Bacteria Trace /hpf (NONE) 08/14/23 19:57 Urine Mucus 1+ /hpf 08/14/23 19:57 XR interpretation done by ED provider, pending radiology final review Discharge Plan Discharge Patient Disposition: Left Against Medical Advice Clinical Impression: Abdominal pain Qualifiers: Abdominal location: right upper quadrant Qualified Code(s): R10.11 - Right upper quadrant pain Condition: Stable Prescriptions: No Action lurasidone [Latuda] 40 mg tablet 40 mg PO DAILY Qty: 30 1RF Rx Instructions: must administer with food (at least 350 calories) albuterol sulfate 90 mcg/actuation HFA aerosol inhaler 2 puff inhalation Q4H PRN (Reason: shortness of breath or wheezing) Qty: 8.5 1RF Referrals: Bridget Millan PA [Primary Care Provider] - Patient Instructions: Abdominal Pain (ED) Coding Level of Care Code ED Research Nurse Practitioner for Sherice Jaramillo
[2023-08-14] MEDS: ondansetron 4 MG Tablet PO (19:56)
[2023-08-14] MEDS: dicyclomine 20 mg Tablet PO (19:56)
[2023-08-14 19:59] VITALS: BP 138/97; PULSE 106; O2SAT 99
--- NOTE | 2023-08-14 19:59 | USR_ITS ---
PROCEDURE INFORMATION: Exam: US Abdomen, Limited; Right Upper Quadrant Exam date and time: 08/14/2023 8:17 PM Age: 22 years old Clinical indication: Abdominal pain; Other: Chronic, recurrent ruq pain since 2019; Patient HX: Recurrent ruq pain, seen here multiple times since 2019, two cts showed normal gb, normal CT of abdomen. There is a recent hidascan which showed suboptimal gb function. No labs are available at the time of this exam, however prior labs from 2020 and 2018 showed normal tbili, but elevated ast, alt, and alkphos, normal lipase. Patient refused quant hcg but denies , stating that she is on bcps and has an iud. TECHNIQUE: Imaging protocol: Real time ultrasound of the abdomen with image documentation. Limited exam focused on the right upper quadrant. COMPARISON: US abdomen limited [id number] 12/11/2021 8:39 AM FINDINGS: Liver: Mildly enlarged. Echogenic, consistent with fatty infiltration. Gallbladder: No gallstones. No gallbladder wall thickening or pericholecystic fluid. Negative sonographic Fong's sign, as per the performing senior planning analyst. Biliary ducts: Normal. No stones. No dilation. Pancreas: Unremarkable as visualized. Right kidney: No mass. No definite stones. No hydronephrosis. US/US gall bladder [id number] IMPRESSION: Mildly enlarged, fatty liver.
[2023-08-14 20:15] LABS: Add Urine Microscopic? YES; Bilirubin Urine Neg (Negative); Blood Urine Neg (Negative); Glucose Urine UA 4+ (Normal); Ketones Urine 1+ (Negative); Leukocyte Esterase Urine Negative (Negative); Nitrate Urine Negative (Negative); Protein Urine Trace (Negative); Specific Gravity, Urine 1.025 (1.005-1.030); Urine Appearance Hazy (CLEAR); Urine Color Yellow (Yellow); Urobilinogen Urine 1 mg/dL (Negative); pH Urine 5 (5-7)
[2023-08-14 20:16] LABS: Add Urine Culture? No; Bacteria Urine TRACE /hpf; Calcium Oxalate Crystals Urine 15-25 /hpf; Mucus Urine 1+ /hpf
[2023-08-14 20:30] VITALS: BP 119/81; PULSE 93; O2SAT 100
[2023-08-14 20:39] LABS: Basophils # 0.1 10^3/uL (0.0-0.1); Basophils % 0.5 %; Eosinophils # 0.3 10^3/uL (0.0-0.8); Eosinophils % 2.6 %; Hematocrit 45.2 % (36-47); Lymphocytes # 2.9 10^3/uL (0.8-4.8); Lymphocytes % 30.5 %; Mean Corpuscular HGB Conc 34.1 g/dL (30-55); Mean Corpuscular Hemoglobin 29.6 pg (27-33); Mean Corpuscular Volume 86.9 fl (85-98); Mean Platelet Volume 9.5 fL (7.4-10.4); Monocytes % 10.1 %; Neutrophils # 5.33 10^3/uL (1.8-7.7); Nucleated Red Blood Cells % 0 %; Platelet Count 293 10^3/cmm (157-399); Red Cell Distribution Width 12.9 % (12.1-15.1); White Blood Count 9.53 10^3/uL (3.29-11.43)
[2023-08-14 20:54] LABS: Alanine Aminotransferase 107 U/L (0-33); Albumin Level 4.9 g/dL (3.5-5.2); Alkaline Phosphatase 133 U/L (35-105); Aspartate Amino Transferase 51 U/L (0-32); Blood Urea Nitrogen 8 mg/dL (6-20); Calcium 9.7 mg/dL (8.5-10.5); Carbon Dioxide 20 mmol/L (22-29); Chloride 103 mmol/L (98-107); Globulin 2.8 g/dL (1.3-4.6); Glomerular Filtration Rate 151.6 mL/min (90-130); Glucose 191 mg/dL (65-115); Lipase 29 U/L (13-60); Osmolality Calculated 287 mOsm/kg (285-295); Sodium 137 mmol/L (136-145); Total Bilirubin 0.4 mg/dL (0.15-1.2); Total Protein 7.7 g/dL (6.6-8.7)
[2023-08-14 21:01] LABS: HCG Qualitative Urine. Negative (Negative)
[2023-08-14 21:01] LABS: Anion Gap 17.9 (5-19); Potassium 3.9 mmol/L (3.5-5.1)
== END 2023-08-14 21:00 | disposition left against medical advice (07) ==
PROVIDERS: Emergency Provider Nurse Practitioner Family; PCP Physician Assistant
DX: R10.11 Right upper quadrant pain (principal); Z53.21 Procedure and treatment not carried out due to patient leaving prior to being seen by health care provider; F84.5 Asperger's syndrome
CPT/HCPCS: 36415; 76705; 80053; 81001; 81025; 83690; 85025; 99284; Q0162

== ENCOUNTER → 2023-09-02 16:20 | Outpatient (BNVA) | payer MEDICAID, SELFPAY | PROVIDERS: PCP Registered Nurse; Visit Provider Registered Nurse | DX: J02.9 Acute pharyngitis, unspecified (principal); Z11.52 Encounter for screening for COVID-19; J30.9 Allergic rhinitis, unspecified | CPT/HCPCS: 87400; 87426; 87880 ==

== ENCOUNTER → 2023-09-12 15:56 | Outpatient (BNVA) | payer MEDICAID, SELFPAY | PROVIDERS: PCP Physician Assistant; Visit Provider Nurse Practitioner | DX: F33.9 Major depressive disorder, recurrent, unspecified (principal); F41.1 Generalized anxiety disorder; F31.9 Bipolar disorder, unspecified; R41.83 Borderline intellectual functioning; F90.2 Attention-deficit hyperactivity disorder, combined type; F84.5 Asperger's syndrome; Z79.899 Other long term (current) drug therapy | CPT/HCPCS: 80061; 83036 ==

== ENCOUNTER → 2025-06-08 14:24 | Outpatient (BNVA) | payer MEDICAID, SELFPAY | PROVIDERS: PCP Physician Assistant; Visit Provider Nurse Practitioner Women's Health | DX: R30.0 Dysuria (principal) | CPT/HCPCS: 81000 ==